=== PATIENT | female | born 1985 | race Caucasian/White ===

== ENCOUNTER → 2016-09-23 | Outpatient (CLI) | payer OTHER ==
[~2016-09-23] MED LIST: AC325T GT; ACHYD1T PO; AMOX-358 PO; AMX500CIP PO; AZIT500T PO; DCS100C PO; DOCU100C37 PO; HYDR-3816 PO; IBP600T1 PO; IBUP-1773 PO; MGX400T PO; MTH.2T PO; NITR-65 PO; NITR100C3 PO; OSLT75C PO; PREN1TAB71 PO; PRENATAL VITAMINS; ROBITUSSIN; SIME80TA16 PO
--- OUTSIDE RECORDS SUMMARY | 2016-09-23 15:06 | XMS REPORT ---
Author Author RONA ARNDT [facility] eClinicalWorks Address Unknown Phone Unavailable Care Team Providers Care Emblem Cutter Name Role Phone RONA ARNDT CP Unavailable Allergies, Adverse Reactions, Alerts Substance Reaction Event Type Stadol combative Drug Allergy Cephalexin Info Not Available Drug Allergy Problems Problem Type Condition ICD-9 Code Onset Dates Condition Status Problem Cellulitis and abscess of face 682.0 Active Problem Acute pharyngitis 462 Active Problem Cough 786.2 Active Assessment Headache 784.0 Active Problem Routine gynecological examination V72.31 Active Problem Lump or mass in breast 611.72 Active Problem Encounter for removal of intrauterine contraceptive device V25.12 Active Problem Pain in joint, lower leg 719.46 Active Problem Pain in joint, shoulder region 719.41 Active Problem Diffuse cystic mastopathy 610.1 Active Problem Unspecified synovitis and tenosynovitis 727.00 Active Medications Medication Code System Code Instructions Start Date End Date Status Dosage Ibuprofen [facility] [address]-51 800 MG Orally Three times a day as needed 1 tablet Procedures Procedure Coding System Code Date TORADOL (IM) 60 MG/2ML (UP TO 15 MG) CPT-4 J1885 May 07, 2015 THER/PROPH/DIAG INJ, SC/IM CPT-4 94342 May 07, 2015 Office Visit, Est Pt., Level 3 CPT-4 77892 May 07, 2015 Vital Signs Date/Time: May 07, 2015 Temperature 97.9 F Weight 184.4 lbs Height 66 in BMI 29.76 Index Blood Pressure Diastolic 62 mmHg Blood Pressure Systolic 108 mmHg Cardiac Monitoring Heart Rate 84 bpm Results No Known Results Summary Purpose eClinicalWorks Submission
--- NOTE | 2016-09-23 21:01 | Diagnostic Imaging Report ---
Bilateral breast ultrasound. Technique: All four quadrants and the retroareolar region were examined on this study. INDICATION: Bilateral breast lumps, on the left side at 1:00 and in the upper outer aspect of the right side extending to the axillary region. FINDINGS: Areas of lumpiness and tenderness in the upper outer aspect of the left breast extending to the axilla are scanned with no underlying abnormality seen. In the left side the 4 quadrants and retroareolar region were also scanned without underlying abnormality. IMPRESSION: Negative study. Clinical followup and management of patient's symptoms recommended. ACR BI-RADS Category 1: Negative. Dictated by: Dictated on workstation # [id number]
== END ==
LOC: RAD 15:02
PROVIDERS: ATTEND Nurse Practitioner Family
DX: N63 Unspecified lump in breast (principal)

== ENCOUNTER → 2016-10-12 | Outpatient (CLI) | payer MEDICAID ==
--- NOTE | 2016-10-12 18:33 | Diagnostic Imaging Report ---
EXAMINATION: Pelvic ultrasound. INDICATION: Heavy bleeding. FINDINGS: The previous pelvic ultrasound exam performed on 12/14/2013 was conducted when the patient was post . There did appear to be blood products within the endometrium of the uterus, but there was no sign of retained products of conception. On this study, the endometrium is only slightly thickened measuring 7 mm (normal 5 mm or less). This finding is nonspecific. Correlation with the patient's menstrual cycle will be recommended. There may be a trace amount of fluid within the endometrium, but there is no sign of a gestational sac. The uterus is prominent measuring 9.2 x 6 x 4.9 cm. There is no focal mass involving the uterus to suggest a fibroid. Both ovaries are identified. Each ovary contains a few subcentimeter follicles. There is no solid pelvic mass or free fluid collection noted. IMPRESSION: 1. The endometrium of the uterus is only slightly thickened. This finding is non specific. Correlation with the patient's menstrual cycle will be recommended. 2. The uterus itself is prominent, but there is no focal mass to suggest a fibroid. 3. There is no solid pelvic mass or free fluid collection to indicate an acute abnormality. Dictated by: Dictated on workstation # [id number]
== END ==
LOC: RAD 14:14
PROVIDERS: ATTEND Family Medicine
DX: N93.9 Abnormal uterine and vaginal bleeding, unspecified (principal)
CPT/HCPCS: 76830

== ENCOUNTER 2016-12-28 10:46 | Outpatient (CLI) | payer MEDICAID ==
[~2016-12-28] VITALS: Ht 167.6 cm; Wt 87.7 kg
[~2016-12-28 10:46] MED LIST changes: -AMOX-358 PO; -AZIT500T PO; -DOCU100C37 PO; -HYDR-3816 PO; -IBUP-1773 PO; -SIME80TA16 PO
[2016-12-28 11:14] VITALS: BP 112/69
[2016-12-28 11:39] LABS: BASOPHILS % (AUTO) 0 % (0-10); EOSINOPHILS # (AUTO) 0.4 10^3/uL (0.0-0.3); EOSINOPHILS % (AUTO) 4 % (0-10); LYMPHOCYTES # (AUTO) 2.8 X 10^3 (1.0-4.0); LYMPHOCYTES % (AUTO) 28 % (12-44); MEAN CORPUSCULAR HEMOGLOBIN 25 PG (25-34); MEAN CORPUSCULAR HGB CONC 32 G/DL (32-36); MEAN CORPUSCULAR VOLUME 80 FL (80-99); MEAN PLATELET VOLUME 12.3 FL (7.4-10.4); MONOCYTES # (AUTO) 0.8 X 10^3 (0.0-1.0); MONOCYTES % (AUTO) 8 % (0-12); NEUTROPHILS # (AUTO) 5.8 X 10^3 (1.8-7.8); NEUTROPHILS % (AUTO) 60 % (42-75); PLATELET COUNT 201 10^3/uL (130-400); RED BLOOD COUNT 4.63 10^6/uL (4.35-5.85); RED CELL DISTRIBUTION WIDTH 14.7 % (10.0-14.5); WHITE BLOOD COUNT 9.8 10^3/uL (4.3-11.0)
[2017-01-07] MEDS ORDERED: IBUP-1773 PO (11:31)
[2017-01-07] MEDS ORDERED: HYDR-3816 PO (11:31)
[2017-01-07] MEDS ORDERED: SIME80TA16 PO (11:31)
[2017-01-07] MEDS ORDERED: DOCU100C37 PO (11:31)
== END 2016-12-28 13:58 | disposition home or self-care (01) ==
LOC: PREOP 10:46
PROVIDERS: ATTEND Obstetrics & Gynecology
DX: Z01.812 Encounter for preprocedural laboratory examination (principal); Z11.2 Encounter for screening for other bacterial diseases; N93.9 Abnormal uterine and vaginal bleeding, unspecified
CPT/HCPCS: 36415; 85025; 86850; 86900; 86901; 87081

== ENCOUNTER 2017-01-07 08:13 | Day surgery (SDC) | payer MEDICAID ==
[~2017-01-07] VITALS: Ht 167.6 cm; Wt 87.7 kg
[2017-01-07] MEDS ORDERED: ceFAZolin 2 GM/50 ML NS 50 ML IV ONE (08:20)
[2017-01-07] MEDS ORDERED: metroNIDAZOLE 500MG/100ML IVPB 100 ML ONE (08:21)
[2017-01-07 08:30] VITALS: BP 100/70
[2017-01-07] MEDS ORDERED: LACTATED RINGERS 1,000 ML IV PRN (08:43)
[2017-01-07] MEDS ORDERED: MIDAZOLAM 2 MG/2 ML (VERSED) VIAL IV ONE (08:45)
[2017-01-07] MEDS ORDERED: metroNIDAZOLE 500 MG/100 ML IVPB (PRE-MIX) IV ONE (08:45)
[2017-01-07] MEDS ORDERED: ceFAZolin 2 GM/NS 50 ML IV ONE (08:45)
--- NOTE | 2017-01-07 09:08 | Progress Note-Pre Operative ---
Pre-Operative Progress Note H&P Reviewed The H&P was reviewed, patient examined and no changes noted. Date H&P Reviewed: Jan 07, 2017 Time H&P Reviewed: 09:00 Pre-Operative Diagnosis: MANDO HERNDON DO Jan 07, 2017 9:08 am
[2017-01-07] MEDS ORDERED: proPOfol 200 MG/20 ML (DIPRIVAN) VIAL IV ONE (09:16)
[2017-01-07] MEDS ORDERED: ROCURONIUM 50 MG/5 ML (ZEMURON) VIAL IV ONE (09:16)
[2017-01-07] MEDS ORDERED: ONDANSETRON 4 MG/2 ML (SDV) Z0FRAN ONE (09:16)
[2017-01-07] MEDS ORDERED: LIDOCAINE PF 2% 10 ML (XYLOCAINE) AMP ONE (09:16)
[2017-01-07] MEDS ORDERED: DEXAMETHASONE PF 10 MG/ML (DECADRON) VIAL ONE (09:16)
[2017-01-07] MEDS ORDERED: fentaNYL INJECTION 250 MCG/5 ML AMP ONE (09:16)
[2017-01-07] MEDS ORDERED: MIDAZOLAM 2 MG/2 ML (VERSED) VIAL ONE (09:17)
[2017-01-07] MEDS ORDERED: BUPIVACAINE 0.25% 30 ML (SENSORCAINE) VIAL ONE (10:17)
[2017-01-07] MEDS ORDERED: ONDANSETRON 4 MG/2 ML (SDV) Z0FRAN IV PRN (10:30)
[2017-01-07] MEDS ORDERED: CHLORASEPTIC LOZENGE MM PRN (10:30)
[2017-01-07] MEDS ORDERED: ANTACID SUSP 30 ML UDC (MYLANTA) PO PRN (10:30)
[2017-01-07] MEDS ORDERED: DOCUSATE SODIUM 100 MG (COLACE) CAP PO PRN (10:30)
[2017-01-07] MEDS ORDERED: SIMETHICONE 80 MG (MYLICON) CHEW PO PRN (10:30)
[2017-01-07] MEDS ORDERED: HYDROcodone/APAP 7.5 MG/325 MG (LORTAB, LORCET PLUS) TABLET PO PRN (10:30)
[2017-01-07] MEDS ORDERED: ZOLPIDEM 5 MG (AMBIEN) TAB PO PRN (10:30)
[2017-01-07] MEDS: LACTATED RINGERS 1,000 ML IV SCH ×3 (10:30→20:12)
[2017-01-07] MEDS ORDERED: NEOSTIGMINE (BLOXIVERZ ) 1 MG/1ML 10 ML VIAL ONE (11:13)
[2017-01-07] MEDS ORDERED: GLYCOPYRROLATE 0.2 MG/ML (ROBINUL) 2 ML VIAL ONE (11:13)
--- NOTE | 2017-01-07 11:30 | Discharge Inst-Women's Service ---
Discharge Inst-Women's Serv Depart Medication/Instructions New, Converted or Re-Newed RX: RX on Chart Consults/Follow Up Additional Follow Up: Yes Orders/Referrals Dr. Sher in 7-10 days and in 8 weeks Activity Activity: Activity as Tolerated Driving Instructions: No Driving for 1 Week NO SMOKING: NO SMOKING Nothing Inside Vagina: No Douching, No [place], No Tampons Diet Discharge Diet: No Restrictions Symptoms to Report to : Bleeding Excessive, Pain Increased, Fever Over 101 Degrees F, Vaginal Bleeding Increase, Questions/Concerns For Any Problems or Questions: Contact Your Physician Skin/Wound Care Infection Signs and Symptoms: Increased Redness, Foul Odor of Wound, Increased Drainage, Skin Itchy or Has a Rash, Increased Swelling, Temperature Above 101 F Operative Area Clean and Dry: Keep Incision Clean/Dry Stitches/[place]/Dermabond: Dermabond, Care of Stitches Bathing Instructions: MANDO Otoole DO Jan 07, 2017 11:30 am
[2017-01-07] MEDS ORDERED: IBUP-1773 PO (11:31)
[2017-01-07] MEDS ORDERED: SIME80TA16 PO (11:31)
[2017-01-07] MEDS ORDERED: HYDR-3816 PO (11:31)
[2017-01-07] MEDS ORDERED: DOCU100C37 PO (11:31)
[2017-01-07] MEDS ORDERED: SEVOFLURANE (ULTANE) 15 ML INHAL SOLN ONE (11:37)
[2017-01-07] MEDS ORDERED: morphine INJ 10 MG/ML 1ML (SYR OR VIAL) ONE (11:45)
[2017-01-07] MEDS: KETOROLAC 30 MG/ML VIAL IV PRN ×2 (12:00→19:35)
[2017-01-07] MEDS ORDERED: MEPERIDINE (DEMEROL) INJ 50 MG/ML IVP PRN (12:00)
[2017-01-07] MEDS ORDERED: ONDANSETRON 4 MG/2 ML (SDV) Z0FRAN IVP PRN (12:00)
[2017-01-07] MEDS: morphine INJ 10 MG/ML 1ML (SYR OR VIAL) IVP PRN ×2 (12:05→12:10)
[2017-01-07] MEDS ORDERED: BUPIVACAINE 0.25% 30 ML (SENSORCAINE) VIAL INJ ONE (12:15)
[2017-01-07 12:57] VITALS: BP 109/70
--- NOTE | 2017-01-07 13:06 | OPERATIVE REPORT ---
DATE OF SERVICE: PREOPERATIVE DIAGNOSIS: A 31-year-old female with abnormal uterine bleeding, dysmenorrhea. POSTOPERATIVE DIAGNOSIS: A 31-year-old female with abnormal uterine bleeding, dysmenorrhea. PROCEDURE: Robotic-assisted total laparoscopic hysterectomy with bilateral salpingectomy. SURGEON: Dr. Kenrick Hoffman. HOME [employer]POT REP: Urszula Wells APRN ANESTHESIA: General endotracheal. ESTIMATED BLOOD LOSS: 50 mL. URINE OUTPUT: 150 mL, clear at end of procedure. FLUIDS: Two liters of lactated Ringer's solution. FINDINGS: Hyperemic-appearing uterus with evidence of prior tubal ligation, grossly normal-appearing bilateral ovaries, vesicouterine peritoneum scarring from previous section; otherwise, grossly normal abdominal and pelvic anatomy. SPECIMEN SPENT: Uterus, bilateral fallopian tubes. INDICATIONS FOR PROCEDURE: This is a 31-year-old female with consultation in my office for ongoing issues with chronic dysmenorrhea and abnormal uterine bleeding which was irregular and very heavy. The patient states this was debilitating at times. She had tried Depo-Provera, oral contraceptive pills, had even been counseled about endometrial ablation, however, the patient wanted more definitive measures as she has no plans of childbearing in the future. I do attempt to try the patient on a less conservative measure; however, she does not feel that these are good options for her. I discussed the risk of hysterectomy including bleeding, infection, damage to any surrounding structures including but not limited to bowel, bladder, ureter, kidneys, risk for postoperative hematoma, thromboembolic events, risk from anesthesia; risk for need for subsequent surgeries if any damage should occur. After all of this was discussed with patient, she was still agreeable to proceed with the more definitive measure which would be robotic-assisted hysterectomy. The consent was reviewed and obtained in the preoperative area with her family present. The patient was then taken to the operating room. OPERATIVE REPORT IN DETAIL Once in the operating room, and general anesthesia was found to be adequate, she was placed in the dorsal lithotomy position, prepped and draped in a normal sterile fashion. She was first examined under anesthesia after a timeout is performed. A De La Paz catheter is placed. The uterus is not enlarged, fully immobile; there is no adnexal fullness or masses appreciated on bimanual examination. A weighted speculum was inserted into the patient's vagina. A right angle retractor was used to visualize the cervix which was grasped at the 12 o'clock position using a long Allis clamp. A 0 Vicryl suture was placed at the anterior lip of the cervix and this was used as my retraction point and the Allis clamp is then removed. I then sounded the uterine cavity and when this was found to be 8 cm I then selected a ELVIA uterine manipulator with an 8 cm tip and a 3-1/2 colpotomy ring and advanced it into the uterus, deploying the balloon and advancing the colpotomy ring around the vaginal fornix. Once this was in place, excellent uterine manipulation is noted on bimanual examination. I then performed a change of gloves and turned my attention to the abdomen where I supraumbilically infiltrated this area using 0.25% Marcaine. I made an 8 mm incision and directed the Veress needle through this incision to ensure proper placement as confirmed using the saline drop test. An opening pressure of 4 mmHg is noted. I proceeded to a maximum pressure of 15 mmHg, at which point I removed the Veress needle and introduced an 8 mm blunt da Chi camera trocar. Once this was in place I am able to confirm intraperitoneal placement. I had the patient placed in steel Trendelenburg and I individualized all of the findings and the pelvic anatomy described above. I placed lateral trocars approximately 8 cm lateral to my supraumbilical trocar, they are both 8 mm incisions, which are infiltrated with 0.25% Marcaine, incisions are made with a knife and the trocars were placed under direct visualization of the laparoscope. Once both of these trocars were in place I am able to bring in the da Chi robot and dock it in the appropriate fashion. I placed monopolar jax in the right hand and the da Chi vessel sealer in the left hand. I then take my place at the operative console and perform the final dissection bilaterally. Starting at the uteroovarian ligament, I bipolar cauterize this and transect it using the vessel sealer. I then create a window in the mesosalpinx using the monopolar jax and take this distally, amputating the fallopian tube away from its surrounding blood supply using the vessel sealer. I then grasped the round ligament, bipolar cauterize this and transect it using the vessel sealer. I then take the entire broad ligament using the vessel sealer, bipolar cauterize and transect it all the way down to the lower uterine segment at which point I separate the anterior posterior leaflets of the broad ligament. The anterior leaflet was taken down at the anterior vaginal fornix; the posterior leaflet was taken down at the posterior vaginal fornix. This allows me to skeletonize out the uterine vessels bilaterally. I bipolar cauterize these and transect them using the vessel sealer. I then perform a colpotomy at the 12 o'clock position and take this colpotomy circumferentially using the monopolar jax, amputating the cervix from the vaginal fornix. The entire specimen is then removed through the vagina. I then close the vaginal cuff using 2-0 Vicryl suture in a [id number] fashion, incorporating them into the uterosacral ligaments. I do this in the lateral vaginal apices, leaving the defect open in the middle, which I close later using a 2-0 V-Loc. After the remainder of the incision of the vagina is closed, there is no active bleeding noted from any of the resection planes. I undocked the da Chi robot and proceeded with the remainder of the case laparoscopically. I copiously irrigated the pelvis using normal saline. There was no active bleeding from any of my dissection planes. I placed FloSeal hemostatic agent over my planes of dissection and have the patient taken out of steep Trendelenburg and will remove the lateral trocars. There is no active bleeding noted from those. The supraumbilical trocar was left in place to release insufflation and to introduce 10 mL of 0.25% Marcaine for postoperative pain management. This trocar is then removed as well. The skin is then closed using 4-0 Monocryl in interrupted subcuticular stitches, Dermabond applied to the incision, a Band-Aid to be placed over these. The patient tolerated the procedure well, was taken to the recovery area in stable condition. Lap and sponge count was correct at the end of the procedure. Instrument count is correct as well. Two grams of Ancef and 500 mg of Flagyl given preoperatively for infection prophylaxis. Job ID: [id number] DocumentID: [id number] Dictated Date: 01/07/2017 11:27:48 Director Date: 01/07/2017 13:06:08 Dictated By: KENRICK HOFFMAN DO
[2017-01-07 16:00] VITALS: BP 102/66
[2017-01-07 20:00] VITALS: BP 96/63
[2017-01-07 21:50] VITALS: BP 102/67
[2017-01-08] MEDS ORDERED: IBUPROFEN 600 MG (MOTRIN) TAB PO PRN (03:00)
== END 2017-01-07 21:50 | disposition home or self-care (01) ==
LOC: SDC 08:13 → WS 12:44 → SDC 21:50
PROVIDERS: ATTEND Obstetrics & Gynecology
DX: N94.6 Dysmenorrhea, unspecified (principal); N83.8 Other noninflammatory disorders of ovary, fallopian tube and broad ligament
CPT/HCPCS: 84703; 88307; 94664; 96361; 96375

== ENCOUNTER 2017-01-14 18:12 | Emergency (ER) | payer MEDICAID ==
[~2017-01-14] VITALS: Ht 167.6 cm; Wt 87.7 kg
[~2017-01-14 18:12] MED LIST changes: +DOCU100C37 PO; +HYDR-3816 PO; +IBUP-1773 PO; +SIME80TA16 PO
[2017-01-14] MEDS ORDERED: LACTATED RINGERS 1,000 ML IV ONE ×2 (18:47→20:27)
[2017-01-14] MEDS ORDERED: ACETAMINOPHEN 500 MG TAB (TYLENOL) ONE (18:59)
[2017-01-14] MEDS ORDERED: IBUPROFEN 800 MG (MOTRIN) TAB PO ONE (19:00)
[2017-01-14 19:06] LABS: BASOPHILS % (AUTO) 0 % (0-10); EOSINOPHILS # (AUTO) 0.2 10^3/uL (0.0-0.3); EOSINOPHILS % (AUTO) 1 % (0-10); LYMPHOCYTES % (AUTO) 8 % (12-44); MEAN CORPUSCULAR HEMOGLOBIN 25 PG (25-34); MEAN CORPUSCULAR HGB CONC 31 G/DL (32-36); MEAN CORPUSCULAR VOLUME 79 FL (80-99); MEAN PLATELET VOLUME 12.5 FL (7.4-10.4); MONOCYTES # (AUTO) 1.2 X 10^3 (0.0-1.0); MONOCYTES % (AUTO) 10 % (0-12); NEUTROPHILS # (AUTO) 9.5 X 10^3 (1.8-7.8); NEUTROPHILS % (AUTO) 80 % (42-75); PLATELET COUNT 185 10^3/uL (130-400); RED BLOOD COUNT 4.73 10^6/uL (4.35-5.85); WHITE BLOOD COUNT 11.8 10^3/uL (4.3-11.0)
--- NOTE | 2017-01-14 19:28 | Diagnostic Imaging Report ---
INDICATION: Hysterectomy one week ago. Fever and chills. COMPARISON: 12/10/2013. FINDINGS: Examination of the chest in the PA and lateral projections fails to reveal evidence of active parenchymal pathology or pleural effusion. The cardiac silhouette is normal. IMPRESSION: Negative chest. Dictated by: Dictated on workstation # [id number]
--- NOTE | 2017-01-14 19:48 | ED General ---
General Chief Complaint: Fever-Adult/Adol Stated Complaint: FEVER, CHILLS Nursing Triage Note: PT REPORTS FEVER/CHILLS/MALAISE SINCE YESTERDAY. SHE STATES SHE WAS SEEN BY HER PCP YESTERDAY FOR SORE THROAT AND WAS PRESCRIBED AMOXICILLIN. SHE ALSO REPORTS SHE IS 1 WEEK POST HYSTERECTOMY. PT DENIES N/V OR BLEEDING. Nursing Sepsis Screen: Possible Sepsis Risk Source of Information: Patient History of Present Illness Time Seen by Provider: 18:45 Initial Comments PT ARRIVES VIA POV C/O FEVER OF 102 SINCE YESTERDAY AM ON WAKING ALSO HAS HAD A SORE THROAT SINCE YESTERDAY ON WAKING C/O BODY ACHES NO COUGH OR URI SYMPTOMS NO ABDOMINAL PAIN OR NAUSEA/VOMITING/DIARRHEA NO URINARY SYMPTOMS--HAS VOIDED 2-3 TIMES TODAY--LAST TIME WAS SOME TIME BEFORE 1630 TODAY HAS HAD MINIMAL INTAKE TODAY--PART OF A BURRITO, AND PART OF A POWERADE DRINK IS ONLY INTAKE TOOK IBUPROFEN 600 MG AT 1500 TODAY PT WENT TO URGENT CARE IN [facility] YESTERDAY, BUT WAIT WAS TOO LONG, SO WAS SEEN IN OFFICE BY DR. LIN AND WAS DX WITH TONSILLITIS AND GIVEN RX FOR AMOXIL PT HAD ROBOTIC LAPAROSCOPIC HYSTERECTOMY/OVARIES INTACT [address] HOFFMAN NO PROBLEMS FROM SURGERY--NO BLEEDING, NO PAIN WAS FEELING FINE UNTIL YESTERDAY AM HAS POST OP CHECK NEXT WEDNESDAY WITH DR. HOFFMAN NO PCP ANYWHERE [facility]: DR. HOFFMAN Allergies and Home Medications Allergies Coded Allergies: butorphanol (Verified Allergy, Intermediate, ANXIETY, 12/28/16) cephalexin (Unverified Allergy, Mild, 12/28/16) Home Medications Amoxicillin/Potassium Clav 1 Each Tablet, 1 EACH PO BID, #20 Prescribed by: JACQUE GEORGES on 01/14/176 Azithromycin 500 Mg Tablet, 500 MG PO DAILY, #5 FOR INFECTION Prescribed by: JACQUE GEORGES on 01/14/172105 Docusate Sodium 100 Mg Capsule, 100 MG PO BID PRN for CONSTIPATION-1ST LINE, #40 Prescribed by: MANDO HOFFMAN on 01/07/17 1131 Hydrocodone/Acetaminophen 1 Each Tablet, 1-2 EA PO Q6H PRN for Pain-See Instructions, #50 Prescribed by: MANDO HOFFMAN on 01/07/17 1131 Ibuprofen 600 Mg Tablet, 600 MG PO Q6H PRN for PAIN-MODERATE, #80 Prescribed by: MANDO HOFFMAN on 01/07/17 1131 Simethicone 80 Mg Tab.chew, 40 MG PO TID PRN for INDIGESTION, #40 Prescribed by: MANDO HOFFMAN on 01/07/17 1131 Constitutional: see HPI, chills, fever, malaise, weakness EENTM: other (RIGHT EYE REDNESS, IRRITATION, DRAINAGE AND HAS BEEN MATTED SHUT THE LAST 2 MORNINGS--SON WITH PINK EYE IN THE LAST WEEK.), see HPI, throat pain , throat swelling, No ear pain, No nose congestion Respiratory: no symptoms reported, No cough, No short of breath Cardiovascular: no symptoms reported, No chest pain Gastrointestinal: see HPI, No abdominal pain, No constipation, No diarrhea, loss of appetite, No nausea, No vomiting Genitourinary: no symptoms reported Musculoskeletal: see HPI (BODY ACHES) Skin: no symptoms reported, No rash Psychiatric/Neurological: No Symptoms Reported, Denies Headache Hematologic/Lymphatic: No Symptoms Reported Immunological/Allergic: no symptoms reported Past Fltodlj-Vuilhr-Vuxmwu Hx Patient Social History Alcohol Use: Denies Use Recreational Drug Use: No Smoking Status: Current Everyday Smoker Type Used: Cigarettes 2nd Hand Smoke Exposure: No Recent Foreign Travel: No Contact w/Someone Who Travel: No Recent Infectious Disease Expo: No Recent Hopitalizations: No Immunizations Up To Date Tetanus Booster (TDap): Unknown Seasonal Allergies Seasonal Allergies: No Surgeries HX Surgeries: Yes ( X 2; HYST/OVARIES INTACT) Surgeries: Section, Hysterectomy Respiratory Hx Respiratory Disorders: No Cardiovascular Hx Cardiac Disorders: No Neurological Hx Neurological Disorders: No 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 System Hx : 3 Hx Para: 3 Hx 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 Disorders: Yes (AUB, ENLARGED UTERUS; PLACENTAL ABRUPTION WITH 2ND ; POST HEMORRHAGE WITH 3RD ) Sexually Transmitted Disease: No HIV/AIDS: No Female 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 Disorders: Menstrual Problems [employer] History: Hysterectomy Genitourinary Hx Genitourinary Disorders: No Gastrointestinal Hx Gastrointestinal Disorders: No Musculoskeletal Hx Musculoskeletal Disorders: No Endocrine Hx Endocrine Disorders: No HEENT HX ENT Disorders: Yes (GLASSES) Loss of Vision: Bilateral Hearing Impairment: Denies Cancer Hx Cancer: No Psychosocial Hx Psychiatric Problems: No Integumentary HX Skin/Integumentary Disorder: No Blood Transfusions Hx Blood Disorders: Yes (ANEMIA) Adverse Reaction to a Blood Tr: No (HAS HAD BLOOD WITH NO REACTION) Family Medical History Family Medial History: Cancer 03 FATHER (CANCER OF ANTERIOR AND MEDIAL SURFACE OF THE PHARYNGOEPIGLOTTIC FOLD) Family history: Hypertension 03 MOTHER Physical Exam Vital Signs Vital Sign - Last 12Hours 01/14/17 18:45 Temp 103.8 Pulse 120 Resp 20 B/P (MAP) 120/74 Pulse Ox 98 O2 Delivery Room Air Capillary Refill : Less Than 3 Seconds General Appearance: No Apparent Distress, Other (LOOKS MILDLY ILL. VERY WARM, FACE AND BODY FLUSHED) Eyes: Right Eye Other (CONJUNCTIVAL INFLAMMATION, MILD TEARING, NO PURULENT DRAINAGE AT THIS TIME) HEENT: PERRL/EOMI, Pharyngeal Erythema, No Photophobia, Tonsillar Exudate, Tonsillar Enlargement (+2/4), Other (TM'S SCLEROTIC; NO EVIDENCE OF PERITONSILLAR ABSCESS, NO UVULAR SHIFT, NO MUFFLED VOICE, ABLE TO HANDLE SECRETIONS) Neck: Full Range of Motion, Non Tender, Supple, Lymphadenopathy (L) (ANTERIOR) , Lymphadenopathy (R) (ANTERIOR), No Tender Lateral, No Tender Midline Respiratory: Normal Breath Sounds, No Accessory Muscle Use, No Respiratory Distress Cardiovascular: No Edema, No JVD, No Murmur, Normal Peripheral Pulses, Tachycardia Gastrointestinal: Normal Bowel Sounds, No Organomegaly, No Pulsatile Mass, Soft , Tenderness (SLIGHT TENDERNESS OVER INCISIONS, BUT ALL ARE INTACT AND HEALING WELL WITHOUT SIGNS OF INFECTION. ) Back: Normal Inspection, No Vertebral Tenderness, CVA Tenderness (L), CVA Tenderness (R) Extremity: Normal Capillary Refill, Normal Inspection, Normal Range of Motion, Non Tender, No Calf Tenderness, No Pedal Edema 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: Alert, Oriented x3, No Motor/Sensory Deficits, planning lead II- XII Norm as Tested, Other (MILDLY LETHARGIC) Skin: Warm/Dry, No Rash, Other (VERY FLUSHED AND WARM. ) Focused Exam Lactic Acid Level Progress/Results/Core Measures Results/Orders Lab Results Laboratory Tests Test 01/14/17 18:55 01/14/17 19:10 01/14/17 21:00 Range/Units White Blood Count 11.8 H 4.3-11.0 10^3/uL Red Blood Count 4.73 4.35-5.85 10^6/uL Hemoglobin 11.7 11.5-16.0 G/DL Hematocrit 37 35-52 % Mean Corpuscular Volume 79 L 80-99 FL Mean Corpuscular Hemoglobin 25 25-34 PG Mean Corpuscular Hemoglobin Concent 31 L 32-36 G/DL Red Cell Distribution Width 15.0 H 10.0-14.5 % Platelet Count 185 130-400 10^3/uL Mean Platelet Volume 12.5 H 7.4-10.4 FL Neutrophils (%) (Auto) 80 H 42-75 % Lymphocytes (%) (Auto) 8 L 12-44 % Monocytes (%) (Auto) 10 0-12 % Eosinophils (%) (Auto) 1 0-10 % Basophils (%) (Auto) 0 0-10 % Neutrophils # (Auto) 9.5 H 1.8-7.8 X 10^3 Lymphocytes # (Auto) 1.0 1.0-4.0 X 10^3 Monocytes # (Auto) 1.2 H 0.0-1.0 X 10^3 Eosinophils # (Auto) 0.2 0.0-0.3 10^3/uL Basophils # (Auto) 0.0 0.0-0.1 10^3/uL Sodium Level 138 135-145 MMOL/L Potassium Level 3.8 3.6-5.0 MMOL/L Chloride Level 108 H 98-107 MMOL/L Carbon Dioxide Level 20 L 21-32 MMOL/L Anion Gap 10 5-14 MMOL/L Blood Urea Nitrogen 10 7-18 MG/DL Creatinine 0.87 0.60-1.30 MG/DL Estimat Glomerular Filtration Rate > 60 BUN/Creatinine Ratio 11 Glucose Level 103 70-105 MG/DL Lactic Acid Level 1.01 0.50-2.00 MMOL/L Calcium Level 8.5 8.5-10.1 MG/DL Total Bilirubin 0.3 0.1-1.0 MG/DL Aspartate Amino Transf (AST/SGOT) 11 5-34 U/L Alanine Aminotransferase (ALT/SGPT) 10 0-55 U/L Alkaline Phosphatase 73 40-136 U/L Total Protein 7.1 6.4-8.2 G/DL Albumin 4.1 3.2-4.5 G/DL Monoscreen NEGATIVE NEGATIVE Group A Streptococcus Screen NEGATIVE NEGATIVE Urine Color YELLOW Urine Clarity CLEAR Urine pH 7 5-9 Urine Specific [place] 1.015 L 1.016-1.022 Urine Protein NEGATIVE NEGATIVE Urine Glucose (UA) NEGATIVE NEGATIVE Urine Ketones NEGATIVE NEGATIVE Urine Nitrite NEGATIVE NEGATIVE Urine Bilirubin NEGATIVE NEGATIVE Urine Urobilinogen NORMAL NORMAL MG/DL Urine Leukocyte Esterase 1+ H NEGATIVE Urine RBC (Auto) NEGATIVE NEGATIVE Urine RBC NONE /HPF Urine WBC 2-5 /HPF Urine Squamous Epithelial Cells 25-50 H /HPF Urine Crystals NONE /LPF Urine Bacteria FEW H /HPF Urine Casts NONE /LPF Urine Mucus NEGATIVE /LPF Urine Culture Indicated NO Micro Results Microbiology 01/14/17 Influenza Types A,B Antigen (SINA) - Final, Complete My Orders Orders - JACQUE GEORGES DO Cbc With Automated Diff (01/14/17 18:47) Comprehensive Metabolic Panel (01/14/17 18:47) Lactic Acid Analyzer (01/14/17 18:47) Monotest (01/14/17 18:47) Rapid Strep A Screen (01/14/17 18:47) Ua Culture If Indicated (01/14/17 18:47) Blood Culture (01/14/17 18:47) Influenza A And B Antigens (01/14/17 18:47) Chest Pa/Lat (2 View) (01/14/17 18:47) Saline Lock/Iv-Start (01/14/17 18:47) Lactated Ringers (Lr 1000 Ml Iv Solution (01/14/17 18:47) Acetaminophen Tablet (Tylenol Tablet) (01/14/17 18:59) Ibuprofen Tablet (Motrin Tablet) (01/14/17 19:00) Piperacillin Sodium/Tazobactam (Zosyn Vi (01/14/17 20:00) Methylprednisolone Sod Succ (Solu-Medrol (01/14/17 20:00) Saline Lock/Iv-Start (01/14/17 20:27) Lactated Ringers (Lr 1000 Ml Iv Solution (01/14/17 20:27) Azithromycin Tablet (Zithromax Tablet) (01/14/17 21:15) Rx-Gentamicin Ophth Oint (Rx-Gentamicin (01/14/17 21:10) Rx-Gentamicin Ophth Oint (Rx-Gentamicin (01/14/17 21:39) Medications Given in ED Current Medications Medications Dose Ordered Sig/Alysa Route Start Time Stop Time Status Last Admin Dose Admin Acetaminophen 500 mg STK-MED ONCE .ROUTE 01/14/17 18:59 01/14/17 19:03 DC 01/14/17 19:08 1,000 MG Ibuprofen 800 mg STK-MED ONCE PO 01/14/17 19:00 01/14/17 19:04 DC 01/14/17 19:08 800 MG Lactated Ringer's 1,000 ml @ 0 mls/hr Q0M ONCE IV 01/14/17 18:47 01/14/17 18:50 DC 01/14/17 19:09 0 MLS/HR Lactated Ringer's 1,000 ml @ 0 mls/hr Q0M ONCE IV 01/14/17 20:27 01/14/17 20:28 DC 01/14/17 20:49 0 MLS/HR Methylprednisolone Sodium Succinate 125 mg ONCE ONCE IVP 01/14/17 20:00 01/14/17 20:04 DC 01/14/17 20:48 125 MG Piperacillin Sod/ Tazobactam Sod 4.5 gm/Sodium Chloride 100 ml @ 200 mls/hr ONCE ONCE IV 01/14/17 20:00 01/14/17 20:29 DC 01/14/17 20:49 200 MLS/HR Vital Signs/I&O Vital Sign - Last 12Hours 01/14/17 01/14/17 18:45 22:04 Temp 103.8 98.9 Pulse 120 67 Resp 20 16 B/P (MAP) 120/74 Pulse Ox 98 99 O2 Delivery Room Air Intake and Output 01/15/17 00:00 Intake Total 2100 ml Balance 2100 ml Blood Pressure Mean: 89 Progress Note : Progress Note PT LOOKS AND FEELS MUCH BETTER AT DISMISSAL TEMP DOWN TO 99, HEART RATE DOWN BODY ACHES MUCH IMPROVED Diagnostic Imaging Comments CXR--NO ACUTE PROCESS, PER RADIOLOGIST REPORT @ 1948 Reviewed: Reviewed by Me Departure Impression Impression: Primary Impression: Exudative pharyngitis Additional Impression: Conjunctivitis, right eye Disposition: 01 HOME, SELF-CARE Condition: Stable Departure-Patient Inst. Referrals: NO,LOCAL PHYSICIAN (PCP) Primary Care Physician Patient Instructions: Conjunctivitis (Pinkeye) (DC), Sore Throat, Adult (DC) Add. Discharge Instructions: LOTS OF CLEAR LIQUIDS--NO COFFEE, POP OR TEA--DRINK ENOUGH SO YOU ARE URINATING EVERY 2 HOURS WHILE AWAKE FREQUENT SALT WATER GARGLES TYLENOL 1 GRAM/ MOTRIN 800 MG 4 TIMES A DAY FOR PAIN OR FEVER FOLLOW UP WITH DR. HOFFMAN ON WEDNESDAY SCHEDULED STOP AMOXIL USE GENTAMICIN OPHTHALMIC OINTMENT TO AFFECTED EYE EVERY 4 HOURS X 5 DAYS RETURN TO ER IF WORSE All discharge instructions reviewed with patient and/or family. Voiced understanding. Scripts Azithromycin (Zithromax) 500 Mg Tablet 500 MG PO DAILY, #5 TAB FOR INFECTION Prov: JACQUE GEORGES DO 01/14/17 Amoxicillin/Potassium Clav (Augmentin 875-125 Tablet) 1 Each Tablet 1 EACH PO BID for INFECTION, #20 TAB Prov: JACQUE GEORGES DO 01/14/17 JACQUE GEORGES DO Jan 14, 2017 19:48
[2017-01-14] MEDS ORDERED: PIPERACILLIN SODIUM/TAZOBACTAM 4.5 GM in NS (IVPB) 100 ML IV ONE (20:00)
[2017-01-14] MEDS ORDERED: methylPREDNISolone 125 MG (Solu-MEDROL) VIAL IVP ONE (20:00)
[2017-01-14 20:11] LABS: ALANINE AMINOTRANSFERASE 10 U/L (0-55); ALBUMIN 4.1 G/DL (3.2-4.5); ANION GAP 10 MMOL/L (5-14); ASPARTATE AMINO TRANSFERASE 11 U/L (5-34); BILIRUBIN,TOTAL 0.3 MG/DL (0.1-1.0); BLOOD UREA NITROGEN 10 MG/DL (7-18); BUN/CREATININE RATIO 11; CALCIUM 8.5 MG/DL (8.5-10.1); CARBON DIOXIDE 20 MMOL/L (21-32); CHLORIDE 108 MMOL/L (98-107); CREATININE SERUM 0.87 MG/DL (0.60-1.30); GFR ESTIMATED > 60; GLUCOSE 103 MG/DL (70-105); POTASSIUM 3.8 MMOL/L (3.6-5.0); SODIUM 138 MMOL/L (135-145); TOTAL PROTEIN 7.1 G/DL (6.4-8.2)
[2017-01-14] MEDS ORDERED: AMOX-358 PO (21:06)
[2017-01-14] MEDS ORDERED: AZIT500T PO (21:06)
[2017-01-14 21:10] LABS: BILIRUBIN,URINE NEGATIVE (NEGATIVE); KETONES,URINE NEGATIVE (NEGATIVE); LEUKOCYTE ESTERASE ,URINE 1+ (NEGATIVE); NITRITE,URINE NEGATIVE (NEGATIVE); PH,URINE 7 (5-9); PROTEIN,URINE NEGATIVE (NEGATIVE); UROBILINOGEN,URINE NORMAL (NORMAL)
[2017-01-14] MEDS ORDERED: RX-GENTAMICIN 0.3% OP OINT 3.5 GM TUBE OP STA (21:10)
[2017-01-14] MEDS ORDERED: AZITHROMYCIN 250 MG TAB (ZITHROMAX) PO SCH (21:15)
[2017-01-14 21:24] LABS: SQUAMOUS EPITHELIAL CELL,UR 25-50 /HPF
[2017-01-14] MEDS ORDERED: RX-GENTAMICIN 0.3% OP OINT 3.5 GM TUBE ONE (21:39)
[2017-01-14 22:04] VITALS: BP 124/80
== END 2017-01-14 22:04 | disposition home or self-care (01) ==
LOC: EDUNIT# 18:12 → ER 18:14
DX: J02.9 Acute pharyngitis, unspecified (principal); H10.31 Unspecified acute conjunctivitis, right eye; Z98.890 Other specified postprocedural states; Z90.710 Acquired absence of both cervix and uterus
CPT/HCPCS: 36415; 71020; 80053; 81000; 83605; 85025; 86308; 87040; 87430; 87804; 96361; 96365; 96375

== ENCOUNTER → 2019-01-26 | Outpatient (CLI) | payer MEDICAID ==
[~2019-01-26] MED LIST changes: +AMOX-358 PO; +AZIT500T PO; +CATHETER FLUSH 10 ML SYR IV PRN; +HYDR-34 PO; -HYDR-3816 PO
--- NOTE | 2019-01-26 19:27 | Diagnostic Imaging Report ---
INDICATION: Right upper quadrant pain and diarrhea. TECHNIQUE: Patient was administered 5.5 mCi of technetium-99m Choletec intravenously, and imaging over the abdomen was performed. After 60 minutes, patient ingested one can of Ensure, and the gallbladder ejection fraction was calculated. FINDINGS: There is homogeneous uptake of activity by the liver. Prompt excretion of activity into the common duct and gallbladder is noted. There is normal passage of activity into the small bowel. Gallbladder ejection fraction is abnormally low at 12%. Normal values are 33% or greater. IMPRESSION: 1. Patent cystic duct and common bile duct. 2. Abnormally low gallbladder ejection fraction of 12%. Dictated by: Dictated on workstation # [id number]
== END ==
LOC: CARD 11:19
PROVIDERS: ATTEND Surgery
DX: R10.11 Right upper quadrant pain (principal)
CPT/HCPCS: 78227

== ENCOUNTER 2019-02-02 05:34 | Outpatient (CLI) | payer MEDICAID ==
[~2019-02-02] VITALS: Ht 167.6 cm; Wt 87.7 kg
[~2019-02-02 05:34] MED LIST changes: -CATHETER FLUSH 10 ML SYR IV PRN
[2019-02-02] MEDS ORDERED: PANT40TA3 PO (14:55)
== END 2019-02-02 15:17 | disposition home or self-care (01) ==
LOC: PREOP 05:34
PROVIDERS: ATTEND Surgery
DX: Z01.818 Encounter for other preprocedural examination (principal)

== ENCOUNTER 2019-02-09 08:41 | Day surgery (SDC) | payer MEDICAID ==
[2019-02-09] VITALS (11 sets, daily range): BP systolic 107–146; BP diastolic 52–81
[~2019-02-09] VITALS: Ht 167.6 cm; Wt 87.7 kg
[~2019-02-09 08:41] MED LIST changes: +PANT40TA3 PO
--- OUTSIDE RECORDS SUMMARY | 2019-02-09 08:44 | XMS REPORT ---
Author Author Migration, Doctor Organization [facility] Address Unknown Phone Unavailable Care Team Providers Care Driver Service Technician Name Role Phone Migration, Doctor Unavailable Unavailable PROBLEMS Type Condition ICD9-CM Code IEX54-[place] Code Onset Dates Condition Status SNOMED Code Problem Abnormal uterine bleeding (AUB) N93.9 Active 08185737004621 Problem Major depressive disorder, single episode, moderate F32.1 Active 172134068 Problem Abnormal uterine bleeding N93.9 Active 29046279287892 Problem Menorrhagia with irregular cycle N92.1 Active 971290466 ALLERGIES No Information ENCOUNTERS Encounter Location Date Diagnosis [facility] [address] [place] [address] Nov, Strep pharyngitis J02.0 and Sore throat J02.9 [facility] [id number] [place] [id number] May, Dental examination Z01.20 [place] [address] [address] May, Major depressive disorder, single episode, moderate F32.1 [facility] [id number] [place] [address] May, Major depressive disorder, single episode, moderate F32.1 [place] [id number] [place] [address] Apr, Arthralgia, unspecified joint M25.50 and Trigger point of left side of body M79.1 [facility] [id number] [place] [address] Dec, [place] [id number] [place] [address] Oct, Menorrhagia with irregular cycle N92.1 and Abnormal uterine bleeding (AUB) N93.9 [facility] [id number] [place] [address] 02 Oct, 2016 [facility] [id number] [place] [address] Sep, [facility] [address] [address] Sep, [facility] [address] [address] Sep, [facility] [address] [address] Sep, [facility] [address] [address] Sep, Abnormal uterine bleeding N93.9 and Urinary frequency R35.0 [facility] [address] [address] Aug, Breast lump in upper outer quadrant N63 [facility] [address] [address] 16 May, 2016 Pelvic pain R10.2 and Cervical motion tenderness N94.9 [facility] [id number] [place] [id number] Dec, Dental caries K02.9 [facility] [address] [address] 30 Nov, 2016 Dental examination Z01.20 [facility] [id number] [place] [address] 14 Sep, 2015 Screening for diabetes mellitus Z13.1 and Near syncope R55 [facility] [address] [address] Apr, Headache 784.0 [facility] [address] [address] Dec, [facility] [address] [place] [address] 13 Dec, 2014 [facility] [place] [facility] [address] [id number] [place] [address] May, [facility] [place] [facility] [address] [id number] [place] [address] May, [facility] [place] [facility] [address] [id number] [place] [address] May, [facility] [place] [facility] [address] [id number] [place] [address] May, [facility] [place] [facility] [address] [id number] [place] [address] May, [facility] [place] [facility] [address] [id number] [place] [address] May, [facility] [place] [facility] [address] [id number] [place] [address] Apr, [facility] [place] [facility] [address] [id number] [place] [address] Apr, [facility] [place] [facility] [address] [id number] [place] [address] Mar, [facility] [place] [facility] [address] [id number] [place] [address] Mar, [facility] [place] [facility] [address] [id number] [place] [address] January, [facility] [place] [facility] [address] [id number] [place] [address] January, [facility] [place] [facility] [address] [id number] [place] [address] Dec, [facility] [place] [facility] [address] [id number] [place] [address] Dec, [facility] [place] [facility] [address] [id number] [place] [address] Dec, [facility] [place] [facility] [address] [id number] [place] [address] Dec, [facility] [address] [id number] [place] [address] Apr, [facility] [address] [id number] [place] [address] Feb, [facility] [address] [id number] [place] [address] January, [facility] [address] [id number] [place] [address] January, [facility] [address] [id number] [place] [address] January, [facility] [address] [id number] [place] [address] January, [facility] [address] [id number] [place] [address] January, [facility] [address] [id number] [place] [address] January, [facility] [address] [id number] [place] [address] Sep, [facility] [address] [id number] [place] [address] Sep, [facility] [address] [id number] [place] [address] Sep, [facility] [address] [id number] [place] [address] Aug, [facility] [address] [id number] [place] [address] Aug, [facility] [address] [id number] [place] [address] Aug, [facility] [address] [id number] [place] [address] Aug, [facility] [address] [facility] [id number], [place] [address] Aug, [facility] [address] [facility] [id number], [place] [address] Aug, [facility] [address] [facility] [id number], [place] [address] Aug, [facility] [address] [facility] [id number], [place] [address] Aug, [facility] [address] [facility] [id number], [place] [address] Aug, [facility] [address] [facility] [id number], [place] [address] Mar, [facility] [address], [place] [address] Mar, [facility] [address], [place] [address] Jul, [facility] [address], [place] [address] Jun, [facility] [address], [place] [address] Jul, [facility] [address], [place] [address] Jul, [facility] [address], [place] [address] Jun, [facility] [address] [id number], [place] [address] Jun, IMMUNIZATIONS No Known Immunizations SOCIAL HISTORY Never Assessed REASON FOR VISIT [facility] PLAN OF CARE VITAL SIGNS MEDICATIONS No Known Medications RESULTS No Results PROCEDURES No Known procedures INSTRUCTIONS MEDICATIONS ADMINISTERED No Known Medications MEDICAL (GENERAL) HISTORY Type Description Date Medical History Anemia Surgical History Section x2 Surgical History tubal ligation Surgical History Hysterectomy 12/2016 Hospitalization History Post hemmorhage
--- OUTSIDE RECORDS SUMMARY | 2019-02-09 08:44 | XMS REPORT ---
Author Author Migration, Doctor Organization [facility] Address Unknown Phone Unavailable Care Team Providers [facility] Name Role Phone Migration, Doctor Unavailable Unavailable PROBLEMS Type Condition ICD9-CM Code CPN37-GP Code Onset Dates Condition Status SNOMED Code Problem Abnormal uterine bleeding (AUB) N93.9 Active 45315926000129 Problem Major depressive disorder, single episode, moderate F32.1 Active 595807582 Problem Abnormal uterine bleeding N93.9 Active 64005121266559 Problem Menorrhagia with irregular cycle N92.1 Active [id number] ALLERGIES No Information ENCOUNTERS Encounter Location Date Diagnosis [address] [address] Dec, [address] [address] Nov, Epigastric pain R10.13 [facility] [address] [place] [address] Nov, Strep pharyngitis J02.0 and Sore throat J02.9 [facility] [address] [place] [phone] May, Dental examination Z01.20 [facility] [address] [place] [address] May, Major depressive disorder, single episode, moderate F32.1 [facility] [address] [place] [address] May, Major depressive disorder, single episode, moderate F32.1 [facility] [address] [place] [address] Apr, Arthralgia, unspecified joint M25.50 and Trigger point of left side of body M79.1 [facility] [id number] [place] [address] Dec, [facility] [id number] [place] [address] Oct, Menorrhagia with irregular cycle N92.1 and Abnormal uterine bleeding (AUB) N93.9 [facility] [id number] [place] [address] Oct, [facility] [address] [address] Sep, [facility] [address] [address] Sep, [facility] [address] [address] Sep, [facility] [address] [address] Sep, [facility] [address] [address] Sep, Abnormal uterine bleeding N93.9 and Urinary frequency R35.0 [facility] [address] [address] Aug, Breast lump in upper outer quadrant N63 [facility] [id number] [place] [address] 16 May, 2016 Pelvic pain R10.2 and Cervical motion tenderness N94.9 [facility] [id number] [place] [id number] Dec, Dental caries K02.9 [facility] [id number] [place] [address] 30 Nov, 2015 Dental examination Z01.20 [facility] [address] [address] 14 Sep, 2015 Screening for diabetes mellitus Z13.1 and Near syncope R55 [facility] [address] [address] Apr, Headache 784.0 [facility] [address] [id number] [place] [address] 14 Dec, 2014 [facility] [place] [facility] [address] [id number] [place] [address] Dec, [facility] [place] [facility] [address] [id number] [place] [address] May, [facility] [place] [facility] [address] [id number] [place] [address] May, [facility] [place] [facility] [address] [id number] [place] [address] May, [facility] [place] [facility] [address] [id number] [place] [address] May, [facility] [place] [facility] [address] [facility] [id number] [place] [address] May, [facility] [place] [facility] [address] [id number] [place] [address] May, [facility] [place] [facility] [address] [id number] [place] [address] Apr, [facility] [place] [facility] [address] [facility] [id number] [place] [address] Apr, [facility] [place] [facility] [address] [id number] [place] [address] Mar, [facility] [place] [facility] [address] [id number] [place] [address] Mar, [facility] [place] [facility] [address] [id number] [place] [address] January, [facility] [place] [facility] [address] [facility] [id number] [place] [address] January, [facility] [place] [facility] [address] [facility] [id number] [place] [address] Dec, [facility] [place] [facility] [address] [id number] [place] [address] Dec, [facility] [address] [id number] [place] [address] Dec, [facility] [place] [facility] [address] [id number] [place] [address] Dec, [facility] [address] [id number] [place] [address] Apr, [facility] [address] [id number] [place] [address] Feb, [facility] [address] [id number] [place] [address] January, [facility] [address] [id number] [place] [address] January, [facility] [address] [id number] [place] [address] January, [facility] [address] [id number] [place] [address] January, [facility] [address] [id number] [place] [address] January, [facility] [address] [id number] [place] [address] January, [facility] [address] [id number] [place] [address] Sep, [facility] [address] [id number] [place] [address] Sep, [facility] [place] [facility] [address] [id number] [place] [address] Sep, [facility] [place] [facility] [address] [id number] [place] [address] Aug, [facility] [address] [id number] [place] [address] Aug, [facility] [address] [id number] [place] [address] Aug, [facility] [address] [id number] [place] [address] Aug, [facility] [address] [facility] [id number] [place] [address] Aug, [facility] [address] [id number] [place] [address] Aug, [facility] [address] [id number] [place] [address] Aug, [facility] [address] [facility] [id number] [place] [address] Aug, [facility] [address] [facility] [id number] [place] [address] Aug, [facility] [address] [facility] [id number] [place] [address] Mar, [facility] [address] [facility] [id number] [place] [address] Mar, [facility] [address] [facility] [id number] [place] [address] Jul, [facility] [address] [facility] [id number] [place] [address] Jun, [facility] [address] [facility] [id number] [place] [address] Jul, [facility] [address] [facility] [id number] [place] [address] Jul, [facility] [address] [facility] [id number] [place] [address] Jun, [facility] [address] [facility] [id number] [place] [address] Jun, IMMUNIZATIONS No Known Immunizations SOCIAL HISTORY Never Assessed REASON FOR VISIT [facility] [place] OF CARE VITAL SIGNS MEDICATIONS Medication Instructions Dosage Frequency Start Date End Date Duration Status Bactroban 2 % 1 adela by Topical route 2 times per day for 14 day(s) January, Active Bactrim DS 800-160 mg 1 tablet by Oral route 2 times per day for 10 day(s) January, Active Clindamycin HCl 300 mg 1 capsule by Oral route every 12 hours for 7 day(s) January, Active Zithromax Z-Shravan 250 mg 2 tablet by Oral route 1 time per day for 1 days then take 1 tab daily on days 2-5 Dec, Active RESULTS No Results PROCEDURES No Known procedures INSTRUCTIONS MEDICATIONS ADMINISTERED No Known Medications MEDICAL (GENERAL) HISTORY Type Description Date Medical History Anemia Surgical History Section x2 Surgical History tubal ligation Surgical History Hysterectomy 12/2016 Hospitalization History Post hemmorhage
--- OUTSIDE RECORDS SUMMARY | 2019-02-09 08:44 | XMS REPORT ---
Author Author Migration, Doctor Organization [facility] Address Unknown Phone Unavailable Care Team Providers Care Advertising Associate Name Role Phone Migration, Doctor Unavailable Unavailable PROBLEMS Type Condition ICD9-CM Code [id number] Code Onset Dates Condition Status SNOMED Code Problem Abnormal uterine bleeding (AUB) N93.9 Active 17861903711132 Problem Major depressive disorder, single episode, moderate F32.1 Active 093634544 Problem Abnormal uterine bleeding N93.9 Active 73838836264524 Problem Menorrhagia with irregular cycle N92.1 Active 843594606 ALLERGIES No Information ENCOUNTERS Encounter Location Date Diagnosis [facility] [address] [place] [address] Nov, Strep pharyngitis J02.0 and Sore throat J02.9 [facility] [id number] [place] [phone] May, Dental examination Z01.20 [place] [address] [address] May, Major depressive disorder, single episode, moderate F32.1 [facility] [id number] [place] [address] May, Major depressive disorder, single episode, moderate F32.1 [place] [id number] [place] [address] Apr, Arthralgia, unspecified joint M25.50 and Trigger point of left side of body M79.1 [facility] [id number] [place] [address] Dec, [place] [id number] [place] [address] Oct, Menorrhagia with irregular cycle N92.1 and Abnormal uterine bleeding (AUB) N93.9 [facility] [id number] [place] [address] 02 Oct, 2016 [facility] [id number] [place] [address] Sep, [facility] [address] [address] Sep, [facility] [address] [address] Sep, [facility] [address] [address] Sep, [facility] [address] [address] Sep, Abnormal uterine bleeding N93.9 and Urinary frequency R35.0 [facility] [address] [address] Aug, Breast lump in upper outer quadrant N63 [facility] [address] [address] 16 May, 2016 Pelvic pain R10.2 and Cervical motion tenderness N94.9 [facility] [id number] [place] [id number] Dec, Dental caries K02.9 [facility] [address] [address] 30 Nov, 2016 Dental examination Z01.20 [facility] [id number] [place] [address] 14 Sep, 2015 Screening for diabetes mellitus Z13.1 and Near syncope R55 [facility] [address] [address] Apr, Headache 784.0 [facility] [address] [address] Dec, [facility] [address] [place] [address] 13 Dec, 2014 [facility] [place] [facility] [address] [id number] [place] [address] May, [facility] [place] [facility] [address] [id number] [place] [address] May, [facility] [place] [facility] [address] [id number] [place] [address] May, [facility] [place] [facility] [address] [id number] [place] [address] May, [facility] [place] [facility] [address] [id number] [place] [address] May, [facility] [place] [facility] [address] [id number] [place] [address] May, [facility] [place] [facility] [address] [id number] [place] [address] Apr, [facility] [place] [facility] [address] [id number] [place] [address] Apr, [facility] [place] [facility] [address] [id number] [place] [address] Mar, [facility] [place] [facility] [address] [id number] [place] [address] Mar, [facility] [place] [facility] [address] [id number] [place] [address] January, [facility] [place] [facility] [address] [id number] [place] [address] January, [facility] [place] [facility] [address] [id number] [place] [address] Dec, [facility] [place] [facility] [address] [id number] [place] [address] Dec, [facility] [place] [facility] [address] [id number] [place] [address] Dec, [facility] [place] [facility] [address] [id number] [place] [address] Dec, [facility] [address] [id number] [place] [address] Apr, [facility] [address] [id number] [place] [address] Feb, [facility] [address] [id number] [place] [address] January, [facility] [address] [id number] [place] [address] January, [facility] [address] [id number] [place] [address] January, [facility] [address] [id number] [place] [address] January, [facility] [address] [id number] [place] [address] January, [facility] [address] [id number] [place] [address] January, [facility] [address] [id number] [place] [address] Sep, [facility] [address] [id number] [place] [address] Sep, [facility] [address] [id number] [place] [address] Sep, [facility] [address] [id number] [place] [address] Aug, [facility] [address] [id number] [place] [address] Aug, [facility] [address] [id number] [place] [address] Aug, [facility] [id number] [place] [address] Aug, [facility] [address] [facility] [id number], [place] [address] Aug, [facility] [address] [facility] [id number], [place] [address] Aug, [facility] [address] [facility] [id number], [place] [address] Aug, [facility] [address] [facility] [id number], [place] [address] Aug, [facility] [address] [facility] [id number], [place] [address] Aug, [facility] [address] [facility] [id number], [place] [address] Mar, [facility] [address] [place] [address] Mar, [facility] [address], [place] [address] Jul, [facility] [address], [place] [address] Jun, [facility] [address], [place] [address] Jul, [facility] [address], [place] [address] Jul, [facility] [address], [place] [address] Jun, [facility] [id number] [address] Jun, IMMUNIZATIONS No Known Immunizations SOCIAL HISTORY Never Assessed REASON FOR VISIT [facility] [place]AN OF CARE VITAL SIGNS MEDICATIONS No Known Medications RESULTS No Results PROCEDURES No Known procedures INSTRUCTIONS MEDICATIONS ADMINISTERED No Known Medications MEDICAL (GENERAL) HISTORY Type Description Date Medical History Anemia Surgical History Section x2 Surgical History tubal ligation Surgical History Hysterectomy 12/2016 Hospitalization History Post hemmorhage
--- OUTSIDE RECORDS SUMMARY | 2019-02-09 08:44 | XMS REPORT ---
Author Author Migration, Doctor Organization [facility] Address Unknown Phone Unavailable Care Team Providers Care Jacquard Loom Carpet Weaver Name Role Phone Migration, Doctor Unavailable Unavailable PROBLEMS Type Condition ICD9-CM Code [id number] Code Onset Dates Condition Status SNOMED Code Problem Abnormal uterine bleeding (AUB) N93.9 Active 40185244461209 Problem Major depressive disorder, single episode, moderate F32.1 Active 160891062 Problem Abnormal uterine bleeding N93.9 Active 03562609742279 Problem Menorrhagia with irregular cycle N92.1 Active 084558689 ALLERGIES No Information ENCOUNTERS Encounter Location Date Diagnosis [facility] [address] [place] [address] Nov, Strep pharyngitis J02.0 and Sore throat J02.9 [facility] [id number] [place] [phone] May, Dental examination Z01.20 [place] [address] [address] May, Major depressive disorder, single episode, moderate F32.1 [facility] [place] [id number] [place] [address] May, Major depressive disorder, single episode, moderate F32.1 [place] [id number] [place] [address] Apr, Arthralgia, unspecified joint M25.50 and Trigger point of left side of body M79.1 [facility] [place] [id number] [place] [address] Dec, [place] [id number] [place] [address] Oct, Menorrhagia with irregular cycle N92.1 and Abnormal uterine bleeding (AUB) N93.9 [facility] [place] [id number] [place] [address] 02 Oct, 2016 [facility] [place] [id number] [place] [address] Sep, [facility] [place] [address] [address] Sep, [facility] [place] [address] [address] Sep, [facility] [place] [address] [address] Sep, [facility] [place] [address] [address] Sep, Abnormal uterine bleeding N93.9 and Urinary frequency R35.0 [facility] [place] [address] [address] Aug, Breast lump in upper outer quadrant N63 [facility] [address] [address] 16 May, 2016 Pelvic pain R10.2 and Cervical motion tenderness N94.9 [facility] [id number] [place] [phone] Dec, Dental caries K02.9 [facility] [place] [address] [address] 30 Nov, 2016 Dental examination Z01.20 [facility] [place] [id number] [place] [address] 14 Sep, 2015 Screening for diabetes mellitus Z13.1 and Near syncope R55 [facility] [place] [address] [address] Apr, Headache 784.0 [facility] [place] [address] [address] Dec, [facility] [place] [address] [place] [address] 13 Dec, 2014 [facility] [place] [facility] [address] [id number] [place] [address] May, [facility] [place] [facility] [address] [id number] [place] [address] May, [facility] [place] [facility] [address] [id number] [place] [address] May, [facility] [place] [facility] [address] [id number] [place] [address] May, [facility] [place] [facility] [address] [id number] [place] [address] May, [facility] [place] [facility] [address] [id number] [place] [address] May, [facility] [place] [facility] [address] [id number] [place] [address] Apr, [facility] [place] [facility] [address] [id number] [place] [address] Apr, [facility] [place] [facility] [address] [id number] [place] [address] Mar, [facility] [place] [facility] [address] [id number] [place] [address] Mar, [facility] [place] [facility] [address] [id number] [place] [address] January, [facility] [place] [facility] [address] [id number] [place] [address] January, [facility] [place] [facility] [address] [id number] [place] [address] Dec, [facility] [place] [facility] [address] [id number] [place] [address] Dec, [facility] [place] [facility] [address] [id number] [place] [address] Dec, [facility] [place] [facility] [address] [id number] [place] [address] Dec, [facility] [address] [id number] [place] [address] Apr, [facility] [address] [id number] [place] [address] Feb, [facility] [address] [id number] [place] [address] January, [facility] [address] [id number] [place] [address] January, [facility] [address] [id number] [place] [address] January, [facility] [address] [id number] [place] [address] January, [facility] [address] [id number] [place] [address] January, [facility] [address] [id number] [place] [address] January, [facility] [address] [id number] [place] [address] Sep, [facility] [address] [id number] [place] [address] Sep, [facility] [address] [id number] [place] [address] Sep, [facility] [address] [id number] [place] [address] Aug, [facility] [address] [id number] [place] [address] Aug, [facility] [address] [id number] [place] [address] Aug, [facility] [address] [id number] [place] [address] Aug, [facility] [place] [address] [facility] [id number], [place] [address] Aug, [facility] [place] [address] [facility] [id number], [place] [address] Aug, [facility] [place] [address] [facility] [id number], [place] [address] Aug, [facility] [place] [address] [facility] [id number], [place] [address] Aug, [facility] [place] [address] [facility] [id number], [place] [address] Aug, [facility] [place] [address] [facility] [id number], [place] [address] Mar, [facility] [place] [address], [place] [address] Mar, [facility] [place] [address], [place] [address] Jul, [facility] [place] [address], [place] [address] Jun, [facility] [place] [address], [place] [address] Jul, [facility] [place] [address], [place] [address] Jul, [facility] [place] [address], [place] [address] Jun, [facility] [place] [address] [id number], [place] [address] Jun, IMMUNIZATIONS No Known Immunizations SOCIAL HISTORY Never Assessed REASON FOR VISIT [facility] PLAN OF CARE VITAL SIGNS MEDICATIONS No Known Medications RESULTS No Results PROCEDURES No Known procedures INSTRUCTIONS MEDICATIONS ADMINISTERED No Known Medications MEDICAL (GENERAL) HISTORY Type Description Date Medical History Anemia Surgical History Section x2 Surgical History tubal ligation Surgical History Hysterectomy 12/2016 Hospitalization History Post hemmorhage
--- OUTSIDE RECORDS SUMMARY | 2019-02-09 08:44 | XMS REPORT ---
Author Author EVAN TONY [facility] Address [address] [place] [address] Care Team Providers Care Area Representative Name Role Phone EVAN TONY Unavailable PROBLEMS Type Condition ICD9-CM Code [id number] Code Onset Dates Condition Status SNOMED Code Problem Major depressive disorder, single episode, moderate F32.1 Active 869232335 Problem Abnormal uterine bleeding (AUB) N93.9 Active 92205979659239 Problem Menorrhagia with irregular cycle N92.1 Active 538131515 Problem Abnormal uterine bleeding N93.9 Active 59788330841755 ALLERGIES Unknown Allergies SOCIAL HISTORY No smoking Hx information available PLAN OF CARE VITAL SIGNS MEDICATIONS Unknown Medications RESULTS No Results PROCEDURES No Known procedures IMMUNIZATIONS No Known Immunizations
--- OUTSIDE RECORDS SUMMARY | 2019-02-09 08:45 | XMS REPORT ---
Author Author EVAN TONY [facility] Address [address] [place] [address] Care Team Providers Care Network Contract Manager Name Role Phone EVAN TONY Unavailable PROBLEMS Type Condition ICD9-CM Code PXI44-DW Code Onset Dates Condition Status SNOMED Code Problem Major depressive disorder, single episode, moderate F32.1 Active 942416559 Problem Abnormal uterine bleeding (AUB) N93.9 Active 51664924940734 Problem Menorrhagia with irregular cycle N92.1 Active 356835837 Problem Abnormal uterine bleeding N93.9 Active 50651423097658 ALLERGIES Unknown Allergies SOCIAL HISTORY No smoking Hx information available PLAN OF CARE VITAL SIGNS MEDICATIONS Unknown Medications RESULTS No Results PROCEDURES No Known procedures IMMUNIZATIONS No Known Immunizations
--- OUTSIDE RECORDS SUMMARY | 2019-02-09 08:45 | XMS REPORT ---
Author Author EVAN TONY [facility] Address [address] [place] [address] Care Team Providers Care Cub Reporter Name Role Phone EVAN TONY Unavailable PROBLEMS Type Condition ICD9-CM Code BHR43-BJ Code Onset Dates Condition Status SNOMED Code Problem Major depressive disorder, single episode, moderate F32.1 Active 303907322 Problem Abnormal uterine bleeding (AUB) N93.9 Active 97022999243137 Problem Menorrhagia with irregular cycle N92.1 Active 054932677 Problem Abnormal uterine bleeding N93.9 Active 06344325143851 ALLERGIES Unknown Allergies SOCIAL HISTORY No smoking Hx information available PLAN OF CARE VITAL SIGNS MEDICATIONS Unknown Medications RESULTS No Results PROCEDURES No Known procedures IMMUNIZATIONS No Known Immunizations
--- OUTSIDE RECORDS SUMMARY | 2019-02-09 08:45 | XMS REPORT ---
Author Author EVAN TONY Organization [facility] Address [address] [place] [address] Care Team Providers Care Learning Disabled Teacher Name Role Phone EVAN TONY Unavailable PROBLEMS Type Condition ICD9-CM Code GSH77-JD Code Onset Dates Condition Status SNOMED Code Problem Major depressive disorder, single episode, moderate F32.1 Active 988454808 Problem Abnormal uterine bleeding (AUB) N93.9 Active 18701970043785 Problem Menorrhagia with irregular cycle N92.1 Active 821951211 Problem Abnormal uterine bleeding N93.9 Active 95042339522195 ALLERGIES Substance Reaction Event Type Date Status Stadol combative Drug Allergy Oct, Active Cephalexin Unknown Drug Allergy Oct, Active SOCIAL HISTORY Never Assessed PLAN OF CARE Activity Details Follow Up prn with PCP Reason: VITAL SIGNS Height 66 in 2016-10-29 Weight 192 lbs 2016-10-29 Temperature 98.4 degrees Fahrenheit 2016-10-29 Heart Rate 90 bpm 2016-10-29 Respiratory Rate 18 2016-10-29 BMI 30.99 kg/m2 2016-10-29 Blood pressure systolic 110 mmHg 2016-10-29 Blood pressure diastolic 70 mmHg 2016-10-29 MEDICATIONS Unknown Medications RESULTS No Results PROCEDURES No Known procedures IMMUNIZATIONS No Known Immunizations MEDICAL (GENERAL) HISTORY Type Description Date Medical History Anemia Surgical History Section x2 Surgical History tubal ligation Surgical History Hysterectomy 12/2016 Hospitalization History Post hemmorhage
--- OUTSIDE RECORDS SUMMARY | 2019-02-09 08:45 | XMS REPORT ---
Author Author EVAN TONY [facility] Address [address] [place] [address] Care Team Providers Care Research Animal Facility Supervisor Name Role Phone EVAN TONY Unavailable PROBLEMS Type Condition ICD9-CM Code WEP47-RB Code Onset Dates Condition Status SNOMED Code Problem Major depressive disorder, single episode, moderate F32.1 Active 965444185 Problem Abnormal uterine bleeding (AUB) N93.9 Active 94631710005041 Problem Menorrhagia with irregular cycle N92.1 Active 165227099 Problem Abnormal uterine bleeding N93.9 Active 30285555461987 ALLERGIES Substance Reaction Event Type Date Status Stadol combative Drug Allergy Sep, Active Cephalexin Unknown Drug Allergy Sep, Active SOCIAL HISTORY No smoking Hx information available PLAN OF CARE Activity Details Follow Up 1 month with Cherri Reason: VITAL SIGNS Height 66 in 2016-10-07 Weight 190.6 lbs 2016-10-07 Heart Rate 82 bpm 2016-10-07 Respiratory Rate 20 2016-10-07 BMI 30.76 kg/m2 2016-10-07 Blood pressure systolic 112 mmHg 2016-10-07 Blood pressure diastolic 86 mmHg 2016-10-07 MEDICATIONS Medication Instructions Dosage Frequency Start Date End Date Duration Status Ibuprofen 800 MG Orally Three times a day as needed 1 tablet Active Tylenol 325 MG Orally every 6 hrs 2 tablets as needed 6h Active Macrobid 100 MG Orally every 12 hrs 1 capsule with food 12h Sep, Sep, 05 days Active RESULTS No Results PROCEDURES Procedure Date Ordered Related Diagnosis Body Site HESS VAG, DNA, DIR PROBE Oct 07, 2016 TRICHOMONAS ASSAY W/OPTIC Oct 07, 2016 Office Visit, Est Pt., Level 4 Oct 07, 2016 VENIPUNCT, ROUTINE* Oct 07, 2016 COMPLETE CBC W/AUTO DIFF WBC Oct 07, 2016 CULTURE, BACTERIA, OTHER Oct 07, 2016 URINALYSIS, AUTO, W/O SCOPE Oct 07, 2016 No Charge Oct 07, 2016 ASSAY THYROID STIM HORMONE Oct 07, 2016 COMPREHEN METABOLIC PANEL Oct 07, 2016 URINE-NO MICRO Oct 07, 2016 URINE TEST Oct 07, 2016 IMMUNIZATIONS No Known Immunizations
--- OUTSIDE RECORDS SUMMARY | 2019-02-09 08:45 | XMS REPORT ---
Author Author EVAN TONY [facility] Address [address] [place] [address] Care Team Providers Care Casting Room Operator Name Role Phone EVAN TONY Unavailable PROBLEMS Type Condition ICD9-CM Code GSZ35-JA Code Onset Dates Condition Status SNOMED Code Problem Major depressive disorder, single episode, moderate F32.1 Active 211843512 Problem Abnormal uterine bleeding (AUB) N93.9 Active 83327726783279 Problem Menorrhagia with irregular cycle N92.1 Active 777917397 Problem Abnormal uterine bleeding N93.9 Active 17993074249730 ALLERGIES Unknown Allergies SOCIAL HISTORY No smoking Hx information available PLAN OF CARE VITAL SIGNS MEDICATIONS Unknown Medications RESULTS No Results PROCEDURES No Known procedures IMMUNIZATIONS No Known Immunizations
--- OUTSIDE RECORDS SUMMARY | 2019-02-09 08:45 | XMS REPORT ---
Author Author TERESA CASTANON Organization [facility] Address [address] [place] [address] Care Team Providers Care Property Insurance Inspector Name Role Phone TERESA CASTANON Unavailable PROBLEMS Type Condition ICD9-CM Code ORL08-PB Code Onset Dates Condition Status SNOMED Code Problem Abnormal uterine bleeding (AUB) N93.9 Active 30065099554899 Problem Menorrhagia with irregular cycle N92.1 Active 674248719 Problem Abnormal uterine bleeding N93.9 Active 09829875127452 ALLERGIES Substance Reaction Event Type Date Status Stadol combative Drug Allergy Aug, Active Cephalexin Unknown Drug Allergy Aug, Active SOCIAL HISTORY No smoking Hx information available PLAN OF CARE Activity Details Follow Up prn Reason: VITAL SIGNS Height 66 in 2016-09-15 Weight 191 lbs 2016-09-15 Temperature 98.3 degrees Fahrenheit 2016-09-15 Heart Rate 80 bpm 2016-09-15 Respiratory Rate 20 2016-09-15 BMI 30.82 kg/m2 2016-09-15 Blood pressure systolic 120 mmHg 2016-09-15 Blood pressure diastolic 82 mmHg 2016-09-15 MEDICATIONS Medication Instructions Dosage Frequency Start Date End Date Duration Status Ibuprofen 800 MG Orally Three times a day as needed 1 tablet Active Tylenol 325 MG Orally every 6 hrs 2 tablets as needed 6h Active RESULTS Name Result Date Reference Range Mammogram Dx, Bilateral 2016-09-23 PROCEDURES Procedure Date Ordered Related Diagnosis Body Site Office Visit, Est Pt., Level 3 Sep 15, 2016 IMMUNIZATIONS No Known Immunizations
--- OUTSIDE RECORDS SUMMARY | 2019-02-09 08:45 | XMS REPORT ---
Author Author GAVIN DE LEÓN Organization [facility] Address [address] [place] [address] Care Team Providers Care Spray Ii Painter Name Role Phone GAVIN DE LEÓN Unavailable PROBLEMS Type Condition ICD9-CM Code YXI45-KH Code Onset Dates Condition Status SNOMED Code Problem Major depressive disorder, single episode, moderate F32.1 Active 018299325 Problem Abnormal uterine bleeding (AUB) N93.9 Active 08072313342863 Problem Menorrhagia with irregular cycle N92.1 Active 097397888 Problem Abnormal uterine bleeding N93.9 Active 37696009800169 ALLERGIES No Information ENCOUNTERS Encounter Location Date Diagnosis [facility] [address] [id number] May, Dental examination Z01.20 [place] [id number] [place] [address] May, Major depressive disorder, single episode, moderate F32.1 [place] [id number] [place] [address] May, Major depressive disorder, single episode, moderate F32.1 [place] [id number] [place] [address] Apr, Arthralgia, unspecified joint M25.50 and Trigger point of left side of body M79.1 [place] [id number] [place] [address] Dec, [place] [id number] [place] [address] Oct, Menorrhagia with irregular cycle N92.1 and Abnormal uterine bleeding (AUB) N93.9 [place] [id number] [place] [address] Oct, [facility] [address] [address] Sep, [facility] [address] [address] Sep, [facility] [address] [address] Sep, [facility] [address] [address] Sep, [facility] [address] [address] Sep, Abnormal uterine bleeding N93.9 and Urinary frequency R35.0 [facility] [address] [address] Aug, Breast lump in upper outer quadrant N63 [facility] [address] [address] 16 May, 2016 Pelvic pain R10.2 and Cervical motion tenderness N94.9 [facility] [address] [id number] Dec, Dental caries K02.9 [facility] [address] [address] 30 Nov, 2015 Dental examination Z01.20 [facility] [address] [address] 14 Sep, 2015 Screening for diabetes mellitus Z13.1 and Near syncope R55 [facility] [address] [address] Apr, Headache 784.0 [facility] [address] [address] Dec, [facility] [address] [address] Dec, [facility] [place] [facility] [address] [id number] [place] [address] May, [facility] [place] [facility] [address] [id number] [place] [address] May, [facility] [place] [facility] [address] [id number] [place] [address] May, [facility] [place] [facility] [address] [id number] [place] [address] May, [facility] [place] [facility] [address] [id number] [place] [address] May, [facility] [place] [facility] [address] [id number] [place] [address] May, [facility] [place] [facility] [address] [id number] [place] [address] Apr, [facility] [place] [facility] [address] [id number] [place] [address] Apr, [facility] [place] [facility] [address] [id number] [place] [address] Mar, [facility] [place] [facility] [address] [id number] [place] [address] Mar, [facility] [place] [facility] [address] [id number] [place] [address] January, [facility] [place] [facility] [address] [id number] [place] [address] January, [facility] [place] [facility] [address] [id number] [place] [address] Dec, [facility] [place] [facility] [address] [id number] [place] [address] Dec, [facility] [place] [facility] [address] [id number] [place] [address] Dec, [facility] [place] [facility] [address] [id number] [place] [address] Dec, [facility] [address] [id number] [place] [address] Apr, [facility] [address] [id number] [place] [address] Feb, [facility] [address] [id number] [place] [address] January, [facility] [address] [id number] [place] [address] January, [facility] [address] [id number] [place] [address] January, [facility] [address] [id number] [place] [address] January, [facility] [address] [id number] [place] [address] January, [facility] [address] [id number] [place] [address] January, [facility] [address] [id number] [place] [address] Sep, [facility] [address] [id number] [place] [address] Sep, [facility] [address] [id number] [place] [address] Sep, [facility] [place] [facility] [address] [id number] [place] [address] Aug, [facility] [place] [facility] [address] [id number] [place] [address] Aug, [facility] [place] [facility] [address] [id number] [place] [address] Aug, [facility] [place] [facility] [address] [id number] [place] [address] Aug, [facility] [address] [address] Aug, [facility] [address] [address] Aug, [facility] [address] [address] Aug, [facility] [address] [address] Aug, [facility] [address] [address] Aug, [facility] [id number] [place] [address] Mar, [facility] [address] [address] Mar, [facility] [id number] [place] [address] Jul, [facility] [address] [address] Jun, [facility] [id number] [place] [address] Jul, [facility] [address] [address] Jul, [facility] [address], [place] [address] Jun, [facility] [id number] [address] Jun, IMMUNIZATIONS No Known Immunizations SOCIAL HISTORY Never Assessed REASON FOR VISIT BH intake, Depression and anxiety. PLAN OF CARE Activity Details Follow Up prn Reason: VITAL SIGNS MEDICATIONS No Known Medications RESULTS No Results PROCEDURES Procedure Date Ordered Result Body Site Psychotherapy, patient &/family, 30 minutes, established patient May 28, 2017 INSTRUCTIONS MEDICATIONS ADMINISTERED No Known Medications MEDICAL (GENERAL) HISTORY Type Description Date Medical History Anemia Surgical History Section x2 Surgical History tubal ligation Surgical History Hysterectomy 12/2016 Hospitalization History Post hemmorhage
--- OUTSIDE RECORDS SUMMARY | 2019-02-09 08:45 | XMS REPORT ---
Author Author PARRIS DUENAS [facility] Address Unknown Care Team Providers Care Wooden Fence Erector Name Role Phone PARRIS DUENAS Unavailable PROBLEMS Type Condition ICD9-CM Code [id number] Code Onset Dates Condition Status SNOMED Code Problem Major depressive disorder, single episode, moderate F32.1 Active 038661730 Problem Abnormal uterine bleeding (AUB) N93.9 Active 27708099214231 Problem Menorrhagia with irregular cycle N92.1 Active 522006535 Problem Abnormal uterine bleeding N93.9 Active 03040091586264 ALLERGIES Substance Reaction Event Type Date Status Stadol combative Drug Allergy May, Active Cephalexin Unknown Drug Allergy May, Active ENCOUNTERS Encounter Location Date Diagnosis [facility] [id number] [place] [id number] May, Dental examination Z01.20 [facility] [id number] [place] [address] May, Major depressive disorder, single episode, moderate F32.1 [facility] [id number] [place] [address] May, Major depressive disorder, single episode, moderate F32.1 [facility] [id number] [place] [address] Apr, Arthralgia, unspecified joint M25.50 and Trigger point of left side of body M79.1 [facility] [id number] [place] [address] Dec, [facility] [id number] [place] [address] Oct, Menorrhagia with irregular cycle N92.1 and Abnormal uterine bleeding (AUB) N93.9 [facility] [id number] [place] [address] Oct, [facility] [address] [address] Sep, [facility] [address] [address] Sep, [facility] [address] [address] Sep, [facility] [address] [address] Sep, [facility] [address] [address] Sep, Abnormal uterine bleeding N93.9 and Urinary frequency R35.0 [facility] [address] [address] Aug, Breast lump in upper outer quadrant N63 [facility] [id number] [place] [address] 16 May, 2016 Pelvic pain R10.2 and Cervical motion tenderness N94.9 [facility] [address] [id number] Dec, Dental caries K02.9 [facility] [id number] [place] [address] Nov, Dental examination Z01.20 [facility] [id number] [place] [address] 14 Sep, 2015 Screening for diabetes mellitus Z13.1 and Near syncope R55 [facility] [address] [address] Apr, Headache 784.0 [facility] [address] [address] Dec, [facility] [address] [address] Dec, [facility] [place] [facility] [address] [id number] [place] [address] May, [facility] [place] [facility] [address] [id number] [place] [address] May, [facility] [place] [facility] [address] [id number] [place] [address] May, [facility] [place] [facility] [address] [id number] [place] [address] May, [facility] [place] [facility] [address] [id number] [place] [address] May, [facility] [place] [facility] [address] [id number] [place] [address] May, [facility] [place] [facility] [address] [id number] [place] [address] Apr, [facility] [place] [facility] [address] [id number] [place] [address] Apr, [facility] [place] [facility] [address] [id number] [place] [address] Mar, [facility] [place] [facility] [address] [id number] [place] [address] Mar, [facility] [place] [facility] [address] [id number] [place] [address] January, [facility] [place] [facility] [address] [id number] [place] [address] January, [facility] [place] [facility] [address] [id number] [place] [address] Dec, [facility] [place] [facility] [address] [id number] [place] [address] Dec, [facility] [place] [facility] [address] [id number] [place] [address] Dec, [facility] [place] [facility] [address] [id number] [place] [address] Dec, [facility] [address] [id number] [place] [address] Apr, [facility] [address] [id number] [place] [address] Feb, [facility] [address] [id number] [place] [address] January, [facility] [address] [id number] [place] [address] January, [facility] [address] [id number] [place] [address] January, [facility] [address] [id number] [place] [address] January, [facility] [address] [id number] [place] [address] January, [facility] [address] [id number] [place] [address] January, [facility] [address] [id number] [place] [address] Sep, [facility] [address] [id number] [place] [address] Sep, [facility] [address] [id number] [place] [address] Sep, [facility] [address] [id number] [place] [address] Aug, [facility] [address] [id number] [place] [address] Aug, [facility] [address] [id number] [place] [address] Aug, [facility] [address] [id number] [place] [address] Aug, [facility] [address] [address] Aug, [facility] [address] [address] Aug, [facility] [address] [address] Aug, [facility] [id number] [place] [address] Aug, [facility] [address] [place] [address] Aug, [facility] [id number] [place] [address] Mar, [facility] [id number] [place] [address] Mar, [facility] [address] [place] [address] Jul, [facility] [address] [place] [address] Jun, [facility] [address] [place] [address] Jul, [facility] [address] [address] Jul, [facility] [address] [address] Jun, [facility] [address], [place] [address] Jun, IMMUNIZATIONS No Known Immunizations SOCIAL HISTORY Never Assessed REASON FOR VISIT serenity PLAN OF CARE Activity Details Follow Up prn Reason:HYGIENE/ TE--45 MIN REQUESTED FOR #20 VITAL SIGNS Blood pressure systolic 118 mmHg 2017-06-16 Blood pressure diastolic 76 mmHg 2017-06-16 MEDICATIONS Medication Instructions Dosage Frequency Start Date End Date Duration Status Zoloft 50 mg Orally Once a day 1 tablet 24h 25 May, 2017 30 day(s) Active RESULTS No Results PROCEDURES Procedure Date Ordered Result Body Site LTD ORAL EVALUATION - PROBLEM FOCUS Jun 16, 2017 INTRAORL-PERIAPICAL 1 FILM 82093 Jun 16, 2017 BITEWING - SINGLE FILM Jun 16, 2017 INSTRUCTIONS MEDICATIONS ADMINISTERED No Known Medications MEDICAL (GENERAL) HISTORY Type Description Date Medical History Anemia Surgical History Section x2 Surgical History tubal ligation Surgical History Hysterectomy 12/2016 Hospitalization History Post hemmorhage
--- OUTSIDE RECORDS SUMMARY | 2019-02-09 08:45 | XMS REPORT ---
Author Author EVAN TONY [facility] Address [address] [place] [address] Care Team Providers Care Chocolate Temperer Name Role Phone EVAN TONY Unavailable PROBLEMS Type Condition ICD9-CM Code [id number] Code Onset Dates Condition Status SNOMED Code Problem Major depressive disorder, single episode, moderate F32.1 Active 325256262 Problem Abnormal uterine bleeding (AUB) N93.9 Active 11339389479852 Problem Menorrhagia with irregular cycle N92.1 Active 952402371 Problem Abnormal uterine bleeding N93.9 Active [id number] ALLERGIES Unknown Allergies SOCIAL HISTORY No smoking Hx information available PLAN OF CARE VITAL SIGNS MEDICATIONS Unknown Medications RESULTS No Results PROCEDURES No Known procedures IMMUNIZATIONS No Known Immunizations
--- OUTSIDE RECORDS SUMMARY | 2019-02-09 08:46 | XMS REPORT | Continuity of Care Document ---
Author Organization Unknown Address Unknown Allergies Active Description Code Type Severity Reaction Onset Reported/Identified Relationship to Patient Clinical Status Yes Keflex Drug Allergy 07/16/2009 Yes Keflex Drug Allergy N/A N/A 07/16/2009 Yes butorphanol [id number] Drug Allergy Moderate ANXIETY 02/02/2019 Yes cephalexin [id number] Drug Allergy Mild N/A 02/02/2019 Medications There is no data. Problems Date Dx Coded Attending Type Code Diagnosis Diagnosed By 11/27/2008 611.72 BREAST LUMP OR MASS LEFT 11/27/2008 SIRISHA ALEGRE DO 611.72 BREAST LUMP OR MASS LEFT 11/27/2008 SIRISHA ALEGRE DO 611.72 BREAST LUMP OR MASS LEFT 11/27/2008 611.72 BREAST LUMP OR MASS LEFT 11/27/2008 611.72 BREAST LUMP OR MASS LEFT 11/27/2008 611.72 BREAST LUMP OR MASS LEFT 11/27/2008 611.72 BREAST LUMP OR MASS LEFT 11/27/2008 611.72 BREAST LUMP OR MASS LEFT 11/27/2008 611.72 BREAST LUMP OR MASS LEFT 11/27/2008 611.72 BREAST LUMP OR MASS LEFT 11/27/2008 RONA ARNDT APRN 611.72 BREAST LUMP OR MASS LEFT 11/27/2008 MEL ROLLINS DDS 611.72 BREAST LUMP OR MASS LEFT 11/27/2008 NICOLE GARCIA APRN 611.72 BREAST LUMP OR MASS LEFT 11/27/2008 FRANKI SANCHEZ APRN 611.72 BREAST LUMP OR MASS LEFT 11/25/2009 V65.11 pediatric pre- visit for expectant mother 11/25/2009 SIRISHA ALEGRE DO V65.11 pediatric pre- visit for expectant mother 11/25/2009 SIRISHA ALEGRE DO V65.11 pediatric pre- visit for expectant mother 11/25/2009 V65.11 pediatric pre- visit for expectant mother 11/25/2009 V65.11 pediatric pre- visit for expectant mother 11/25/2009 V65.11 pediatric pre- visit for expectant mother 11/25/2009 V65.11 pediatric pre- visit for expectant mother 11/25/2009 V65.11 pediatric pre- visit for expectant mother 11/25/2009 V65.11 pediatric pre- visit for expectant mother 11/25/2009 V65.11 pediatric pre- visit for expectant mother 11/25/2009 RONA ARNDT APRN V65.11 pediatric pre- visit for expectant mother 11/25/2009 MEL ROLLINS DDS V65.11 pediatric pre- visit for expectant mother 11/25/2009 NICOLE GARCIA APRN V65.11 pediatric pre- visit for expectant mother 11/25/2009 FRANKI SANCHEZ APRN V65.11 pediatric pre- visit for expectant mother 04/16/2010 V25.40 visit for: contraceptive surveillance 04/16/2010 SIRISHA ALEGRE DO V25.40 visit for: contraceptive surveillance 04/16/2010 SIRISHA ALEGRE DO V25.40 visit for: contraceptive surveillance 04/16/2010 V25.40 VISIT FOR: CONTRACEPTIVE SURVEILLANCE 04/16/2010 V25.40 VISIT FOR: CONTRACEPTIVE SURVEILLANCE 04/16/2010 V25.40 VISIT FOR: CONTRACEPTIVE SURVEILLANCE 04/16/2010 V25.40 VISIT FOR: CONTRACEPTIVE SURVEILLANCE 04/16/2010 V25.40 VISIT FOR: CONTRACEPTIVE SURVEILLANCE 04/16/2010 V25.40 VISIT FOR: CONTRACEPTIVE SURVEILLANCE 04/16/2010 V25.40 VISIT FOR: CONTRACEPTIVE SURVEILLANCE 04/16/2010 RONA ARNDT APRN V25.40 VISIT FOR: CONTRACEPTIVE SURVEILLANCE 04/16/2010 MEL ROLLINS DDS V25.40 VISIT FOR: CONTRACEPTIVE SURVEILLANCE 04/16/2010 NICOLE GARCIA APRN V25.40 VISIT FOR: CONTRACEPTIVE SURVEILLANCE 04/16/2010 FRNAKI SANCHEZ APRN V25.40 VISIT FOR: CONTRACEPTIVE SURVEILLANCE 05/20/2010 V25.09 Gynecologic Services Contraceptive General Counseling 05/20/2010 SIRISHA ALEGRE DO V25.09 Gynecologic Services Contraceptive General Counseling 05/20/2010 SIRISHA ALEGRE DO V25.09 Gynecologic Services Contraceptive General Counseling 05/20/2010 V25.09 GYNECOLOGIC SERVICES CONTRACEPTIVE GENERAL COUNSELING 05/20/2010 V25.09 GYNECOLOGIC SERVICES CONTRACEPTIVE GENERAL COUNSELING 05/20/2010 V25.09 GYNECOLOGIC SERVICES CONTRACEPTIVE GENERAL COUNSELING 05/20/2010 V25.09 GYNECOLOGIC SERVICES CONTRACEPTIVE GENERAL COUNSELING 05/20/2010 V25.09 GYNECOLOGIC SERVICES CONTRACEPTIVE GENERAL COUNSELING 05/20/2010 V25.09 GYNECOLOGIC SERVICES CONTRACEPTIVE GENERAL COUNSELING 05/20/2010 V25.09 GYNECOLOGIC SERVICES CONTRACEPTIVE GENERAL COUNSELING 05/20/2010 RONA ARNDT APRN V25.09 GYNECOLOGIC SERVICES CONTRACEPTIVE GENERAL COUNSELING 05/20/2010 MEL ROLLINS DDS V25.09 GYNECOLOGIC SERVICES CONTRACEPTIVE GENERAL COUNSELING 05/20/2010 NICOLE GARCIA APRN V25.09 GYNECOLOGIC SERVICES CONTRACEPTIVE GENERAL COUNSELING 05/20/2010 FRANKI SANCHEZ APRN V25.09 GYNECOLOGIC SERVICES CONTRACEPTIVE GENERAL COUNSELING 07/16/2010 716.90 ARTHRITIS/ ARTHROPATHY, UNSPECIFIED 07/16/2010 SIRISHA ALEGRE DO K 716.90 ARTHRITIS/ ARTHROPATHY, UNSPECIFIED 07/16/2010 SIRISHA ALEGRE DO K 716.90 ARTHRITIS/ ARTHROPATHY, UNSPECIFIED 07/16/2010 716.90 ARTHRITIS/ ARTHROPATHY, UNSPECIFIED 07/16/2010 716.90 ARTHRITIS/ ARTHROPATHY, UNSPECIFIED 07/16/2010 716.90 ARTHRITIS/ ARTHROPATHY, UNSPECIFIED 07/16/2010 716.90 ARTHRITIS/ ARTHROPATHY, UNSPECIFIED 07/16/2010 716.90 ARTHRITIS/ ARTHROPATHY, UNSPECIFIED 07/16/2010 716.90 ARTHRITIS/ ARTHROPATHY, UNSPECIFIED 07/16/2010 716.90 ARTHRITIS/ ARTHROPATHY, UNSPECIFIED 07/16/2010 RONA ARNDT APRN 716.90 ARTHRITIS/ ARTHROPATHY, UNSPECIFIED 07/16/2010 MEL ROLLINS DDS 716.90 ARTHRITIS/ ARTHROPATHY, UNSPECIFIED 07/16/2010 NICOLE GARCIA APRN 716.90 ARTHRITIS/ ARTHROPATHY, UNSPECIFIED 07/16/2010 FRANKI SANCHEZ APRN 716.90 ARTHRITIS/ ARTHROPATHY, UNSPECIFIED 08/11/2010 787.01 NAUSEA WITH VOMITING 08/11/2010 V72.42 EXAMINATION OR TEST POSITIVE RESULT 08/11/2010 ALEGRE DO, SIRISHA K 787.01 NAUSEA WITH VOMITING 08/11/2010 ALEGRE DO, SIRISHA K V72.42 EXAMINATION OR TEST POSITIVE RESULT 08/11/2010 ALEGRE DO, SIRISHA K 787.01 NAUSEA WITH VOMITING 08/11/2010 ALEGRE DO, SIRISHA K V72.42 EXAMINATION OR TEST POSITIVE RESULT 08/11/2010 787.01 NAUSEA WITH VOMITING 08/11/2010 V72.42 EXAMINATION OR TEST POSITIVE RESULT 08/11/2010 787.01 NAUSEA WITH VOMITING 08/11/2010 V72.42 EXAMINATION OR TEST POSITIVE RESULT 08/11/2010 787.01 NAUSEA WITH VOMITING 08/11/2010 V72.42 EXAMINATION OR TEST POSITIVE RESULT 08/11/2010 787.01 NAUSEA WITH VOMITING 08/11/2010 V72.42 EXAMINATION OR TEST POSITIVE RESULT 08/11/2010 787.01 NAUSEA WITH VOMITING 08/11/2010 V72.42 EXAMINATION OR TEST POSITIVE RESULT 08/11/2010 787.01 NAUSEA WITH VOMITING 08/11/2010 V72.42 EXAMINATION OR TEST POSITIVE RESULT 08/11/2010 787.01 NAUSEA WITH VOMITING 08/11/2010 V72.42 EXAMINATION OR TEST POSITIVE RESULT 08/11/2010 RONA ARNDT APRN 787.01 NAUSEA WITH VOMITING 08/11/2010 RONA ARNDT APRN V72.42 EXAMINATION OR TEST POSITIVE RESULT 08/11/2010 MEL ROLLINS DDS 787.01 NAUSEA WITH VOMITING 08/11/2010 MEL ROLLINS DDS V72.42 EXAMINATION OR TEST POSITIVE RESULT 08/11/2010 NICOLE GARCIA APRN 787.01 NAUSEA WITH VOMITING 08/11/2010 NICOLE GARCIA APRN V72.42 EXAMINATION OR TEST POSITIVE RESULT 08/11/2010 FRANKI SANCHEZ APRN 787.01 NAUSEA WITH VOMITING 08/11/2010 FRANKI SANCHEZ APRN V72.42 EXAMINATION OR TEST POSITIVE RESULT 04/02/2011 Ot 285.1 AC POSTHEMORRHAG ANEMIA 04/02/2011 Ot 641.21 JIMMIE SEPAR PLACEN- DELIV 04/02/2011 Ot 648.22 ANEMIA-DELIVERED W P/P 04/02/2011 Ot 655.71 DECR MOVEMNT DEL W/W/O MENTION OF 04/02/2011 Ot 659.71 ABN DEL FET HT RT/RHYTHM,W OR W/O MENTIO 04/02/2011 Ot V06.4 NGR-MXZYYM-RCILP-RUBELLA 04/02/2011 Ot V27.0 DELIVER-SINGLE LIVEBORN 03/30/2012 719.41 PAIN IN JOINT INVOLVING SHOULDER REGION 03/30/2012 719.46 PAIN IN JOINT INVOLVING LOWER LEG 03/30/2012 727.00 SYNOVITIS AND TENOSYNOVITIS UNSPECIFIED 03/30/2012 SIRISHA ALEGRE DO 719.41 PAIN IN JOINT INVOLVING SHOULDER REGION 03/30/2012 SIRISHA ALEGRE DO 719.46 PAIN IN JOINT INVOLVING LOWER LEG 03/30/2012 SIRISHA ALEGRE DO 727.00 SYNOVITIS AND TENOSYNOVITIS UNSPECIFIED 03/30/2012 SIRISHA ALEGRE DO 719.41 PAIN IN JOINT INVOLVING SHOULDER REGION 03/30/2012 SIRISHA ALEGRE DO 719.46 PAIN IN JOINT INVOLVING LOWER LEG 03/30/2012 SIRISHA ALEGRE DO 727.00 SYNOVITIS AND TENOSYNOVITIS UNSPECIFIED 03/30/2012 719.41 PAIN IN JOINT INVOLVING SHOULDER REGION 03/30/2012 719.46 PAIN IN JOINT INVOLVING LOWER LEG 03/30/2012 727.00 SYNOVITIS AND TENOSYNOVITIS UNSPECIFIED 03/30/2012 719.41 PAIN IN JOINT INVOLVING SHOULDER REGION 03/30/2012 719.46 PAIN IN JOINT INVOLVING LOWER LEG 03/30/2012 727.00 SYNOVITIS AND TENOSYNOVITIS UNSPECIFIED 03/30/2012 719.41 PAIN IN JOINT INVOLVING SHOULDER REGION 03/30/2012 719.46 PAIN IN JOINT INVOLVING LOWER LEG 03/30/2012 727.00 SYNOVITIS AND TENOSYNOVITIS UNSPECIFIED 03/30/2012 719.41 PAIN IN JOINT INVOLVING SHOULDER REGION 03/30/2012 719.46 PAIN IN JOINT INVOLVING LOWER LEG 03/30/2012 727.00 SYNOVITIS AND TENOSYNOVITIS UNSPECIFIED 03/30/2012 719.41 PAIN IN JOINT INVOLVING SHOULDER REGION 03/30/2012 719.46 PAIN IN JOINT INVOLVING LOWER LEG 03/30/2012 727.00 SYNOVITIS AND TENOSYNOVITIS UNSPECIFIED 03/30/2012 719.41 PAIN IN JOINT INVOLVING SHOULDER REGION 03/30/2012 719.46 PAIN IN JOINT INVOLVING LOWER LEG 03/30/2012 727.00 SYNOVITIS AND TENOSYNOVITIS UNSPECIFIED 03/30/2012 719.41 PAIN IN JOINT INVOLVING SHOULDER REGION 03/30/2012 719.46 PAIN IN JOINT INVOLVING LOWER LEG 03/30/2012 727.00 SYNOVITIS AND TENOSYNOVITIS UNSPECIFIED 03/30/2012 RONA ARNDT APRN R 719.41 PAIN IN JOINT INVOLVING SHOULDER REGION 03/30/2012 RONA ARNDT APRN R 719.46 PAIN IN JOINT INVOLVING LOWER LEG 03/30/2012 RONA ARNDT APRN R 727.00 SYNOVITIS AND TENOSYNOVITIS UNSPECIFIED 03/30/2012 MEL ROLLINS DDS 719.41 PAIN IN JOINT INVOLVING SHOULDER REGION 03/30/2012 MEL ROLLINS DDS 719.46 PAIN IN JOINT INVOLVING LOWER LEG 03/30/2012 RIA HARDINSMEL 727.00 SYNOVITIS AND TENOSYNOVITIS UNSPECIFIED 03/30/2012 NICOLE GARCIA APRN R 719.41 PAIN IN JOINT INVOLVING SHOULDER REGION 03/30/2012 NICOLE GARCIA APRN R 719.46 PAIN IN JOINT INVOLVING LOWER LEG 03/30/2012 NICOLE GARCIA APRN R 727.00 SYNOVITIS AND TENOSYNOVITIS UNSPECIFIED 03/30/2012 FRANKI SANCHEZ APRN A 719.41 PAIN IN JOINT INVOLVING SHOULDER REGION 03/30/2012 FRANKI SANCHEZ APRN A 719.46 PAIN IN JOINT INVOLVING LOWER LEG 03/30/2012 FRANKI SANCHEZ APRN A 727.00 SYNOVITIS AND TENOSYNOVITIS UNSPECIFIED 08/24/2012 SIRISHA ALEGRE DO V72.31 VASCULAR TECHNOLOGIST EXAM, ROUTINE 08/24/2012 SIRISHA ALEGRE DO V72.31 VASCULAR TECHNOLOGIST EXAM, ROUTINE 08/24/2012 V72.31 VASCULAR TECHNOLOGIST EXAM, ROUTINE 08/24/2012 V72.31 VASCULAR TECHNOLOGIST EXAM, ROUTINE 08/24/2012 V72.31 VASCULAR TECHNOLOGIST EXAM, ROUTINE 08/24/2012 V72.31 VASCULAR TECHNOLOGIST EXAM, ROUTINE 08/24/2012 V72.31 VASCULAR TECHNOLOGIST EXAM, ROUTINE 08/24/2012 V72.31 VASCULAR TECHNOLOGIST EXAM, ROUTINE 08/24/2012 V72.31 VASCULAR TECHNOLOGIST EXAM, ROUTINE 08/24/2012 RONA ARNDT APRN V72.31 VASCULAR TECHNOLOGIST EXAM, ROUTINE 08/24/2012 MEL ROLLINS DDS V72.31 VASCULAR TECHNOLOGIST EXAM, ROUTINE 08/24/2012 NICOLE GARCIA APRN V72.31 VASCULAR TECHNOLOGIST EXAM, ROUTINE 08/24/2012 FRANKI SANCHEZ APRN A V72.31 VASCULAR TECHNOLOGIST EXAM, ROUTINE 09/22/2012 SIRISHA ALEGRE DO V25.12 IUD REMOVAL 09/22/2012 V25.12 IUD REMOVAL 09/22/2012 V25.12 IUD REMOVAL 09/22/2012 V25.12 IUD REMOVAL 09/22/2012 V25.12 IUD REMOVAL 09/22/2012 V25.12 IUD REMOVAL 09/22/2012 V25.12 IUD REMOVAL 09/22/2012 V25.12 IUD REMOVAL 09/22/2012 RONA ARNDT APRN V25.12 IUD REMOVAL 09/22/2012 MEL ROLLINS DDS V25.12 IUD REMOVAL 09/22/2012 NICOLE GARCIA APRN V25.12 IUD REMOVAL 09/22/2012 FRANKI SANCHEZ APRN A V25.12 IUD REMOVAL 02/08/2013 682.0 CELLULITIS, FACE 02/08/2013 682.0 CELLULITIS, FACE 02/08/2013 682.0 CELLULITIS, FACE 02/08/2013 682.0 CELLULITIS, FACE 02/08/2013 682.0 CELLULITIS, FACE 02/08/2013 682.0 CELLULITIS, FACE 02/08/2013 682.0 CELLULITIS, FACE 02/08/2013 RONA ARNDT APRN 682.0 CELLULITIS, FACE 02/08/2013 MEL ROLLINS DDS 682.0 CELLULITIS, FACE 02/08/2013 NICOLE GARCIA APRN 682.0 CELLULITIS, FACE 02/08/2013 FRANKI SANCHEZ APRN A 682.0 CELLULITIS, FACE 02/09/2013 FAHAD LLANES, CHINTAN Fleming Ot 682.0 CELLULITIS OF FACE 02/10/2013 ANDREW LLANES, CHILO Chun Ot V67.9 FOLLOW-UP EXAM NOS 11/10/2013 MANDO HOFFMAN DO Ot 599.0 URIN TRACT INFECTION NOS 11/10/2013 MANDO HOFFMAN DO Ot 646.63 INFECTION-ANTEPARTUM 11/10/2013 MANDO HOFFMAN DO Ot 654.23 PREV DELIVERY, ANTEPARTUM COND 11/12/2013 JESSIE GRISSOM DO Ot 655.73 DECR MOVEMNT ANTEPARTUM CONDITION 12/07/2013 MANDO HOFFMAN DO Ot 275.2 DIS MAGNESIUM METABOLISM 12/07/2013 MANDO HOFFMAN DO Ot 285.1 AC POSTHEMORRHAG ANEMIA 12/07/2013 MANDO HOFFMAN DO Ot 427.9 CARDIAC DYSRHYTHMIA NOS 12/07/2013 MANDO HOFFMAN DO Ot 648.22 ANEMIA-DELIVERED W P/P 12/07/2013 MANDO HOFFMAN DO Ot 648.62 CV DIS NEC-DELIVER W P/P 12/07/2013 MANDO HOFFMAN DO Ot 648.91 OTH CURR COND-DELIVERED 12/07/2013 MANDO HOFFMAN DO Ot 648.92 OTH CURR COND-DEL W P/P 12/07/2013 MANDO HOFFMAN DO Ot 654.21 PREV DELIVRY W/ OR W/O MENT ANT 12/07/2013 MANDO HOFFMAN DO Ot 663.31 CORD ENTANGLE NEC-DELIV 12/07/2013 MANDO HOFFMAN DO Ot V02.51 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 B 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 CARRIER/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 12/07/2013 MANDO HOFFMAN DO Ot V06.1 [id number]-PUZOXPYAE, COMBINED [ 12/07/2013 MANDO HOFFMAN DO Ot V27.0 DELIVER-SINGLE LIVEBORN 12/11/2013 FAHAD LLANES, CHINTAN Fleming Ot 427.89 CARDIAC DYSRHYTHMIAS NEC 12/11/2013 FAHAD LLANES, CHINTAN Fleming Ot 786.59 CHEST PAIN NEC 12/15/2013 MANDO HOFFMAN DO Ot 285.1 AC POSTHEMORRHAG ANEMIA 12/15/2013 MANDO HOFFMAN DO Ot 599.0 URIN TRACT INFECTION NOS 12/15/2013 MANDO HOFFMAN DO Ot 646.64 INFECTION- 12/15/2013 MANDO HOFFMAN DO Ot 648.24 ANEMIA- 12/15/2013 MANDO HOFFMAN DO Ot 666.14 POSTPART HEM NEC-POSTPAR 12/16/2013 MANDO HOFFMAN DO Ot 285.1 AC POSTHEMORRHAG ANEMIA 12/16/2013 MANDO HOFFMAN DO Ot 648.24 ANEMIA- 12/16/2013 MANDO HOFFMAN DO Ot 666.14 POSTPART HEM NEC-POSTPAR 12/16/2013 MANDO HOFFMAN DO Ot V45.89 POSTSURGICAL STATES NEC 01/05/2014 OLIVIA ARNDT APRNIA R 462 ACUTE PHARYNGITIS 01/05/2014 BERENICE ARNDT APRNRICIA R 786.2 COUGH 01/05/2014 ROLLINS DDS, MEL 462 ACUTE PHARYNGITIS 01/05/2014 ROLLINS DDS, MEL 786.2 COUGH 01/05/2014 RADHA SIMMONS, NICOLE R 462 ACUTE PHARYNGITIS 01/05/2014 RADHA SIMMONS, NICOLE R 786.2 COUGH 01/05/2014 FRANKI SANCHEZ APRN A 462 ACUTE PHARYNGITIS 01/05/2014 CIRILO SANCHEZ APRNIDI A 786.2 COUGH 05/29/2014 CIRILO SANCHEZ APRNIDI A 610.1 DIFFUSE CYSTIC MASTOPATHY 05/29/2014 DANIEL SIMMONS FRANKI A 611.72 LUMP OR MASS IN BREAST 09/23/2016 JESSIE GRISSOM DO Ot 655.73 DECR MOVEMNT ANTEPARTUM CONDITION 09/23/2016 FRANKI SANCHEZ A DIGITAL ASSISTANT Ot 611.72 LUMP OR MASS IN BREAST 09/23/2016 FRANKI SANCHEZ A DIGITAL ASSISTANT Ot V16.3 FAMILY HX-BREAST MALIG 10/12/2016 JESSIE GRISSOM DO C Ot 655.73 DECR MOVEMNT ANTEPARTUM CONDITION 10/12/2016 FRANKI SANCHEZ A DIGITAL ASSISTANT Ot 611.72 LUMP OR MASS IN BREAST 10/12/2016 FRANKI SANCHEZ A DIGITAL ASSISTANT Ot V16.3 FAMILY HX-BREAST MALIG 10/12/2016 TERESA CASTANON Ot N63 UNSPECIFIED LUMP IN BREAST 10/13/2016 CHAVO LLANES, EVAN R Ot N93.9 ABNORMAL UTERINE AND VAGINAL BLEEDING, U 11/30/2016 JESSIE GRISSOM DO C Ot 655.73 DECR MOVEMNT ANTEPARTUM CONDITION 11/30/2016 FRANKI SANCHEZ DIGITAL ASSISTANT Ot 611.72 LUMP OR MASS IN BREAST 11/30/2016 FRANKI SANCHEZ DIGITAL ASSISTANT Ot V16.3 FAMILY HX-BREAST MALIG 11/30/[address] MAGISTRATE Ot N63 UNSPECIFIED LUMP IN BREAST 11/30/2016 EVAN TONY MD Ot N93.9 ABNORMAL UTERINE AND VAGINAL BLEEDING, U 12/28/2016 JESSIE GRISSOM DO Ot 655.73 DECR MOVEMNT ANTEPARTUM CONDITION 12/28/2016 FRANKI SANCHEZ DIGITAL ASSISTANT Ot 611.72 LUMP OR MASS IN BREAST 12/28/2016 FRANKI SANCHEZ DIGITAL ASSISTANT Ot V16.3 FAMILY HX-BREAST MALIG 12/28/[address] MAGISTRATE Ot N63 UNSPECIFIED LUMP IN BREAST 12/28/2016 EVAN TONY MD Ot N93.9 ABNORMAL UTERINE AND VAGINAL BLEEDING, U 12/28/2016 FENECH DO, MANDO S Ot N93.9 ABNORMAL UTERINE AND VAGINAL BLEEDING, U 12/28/2016 FENECH DO, MANDO S Ot Z01.812 ENCOUNTER FOR PREPROCEDURAL LABORATORY E 12/28/2016 FENECH DO, MANDO S Ot Z11.2 ENCOUNTER FOR SCREENING FOR OTHER BACTER 12/29/2016 FENECH DO, MANDO S Ot N93.9 ABNORMAL UTERINE AND VAGINAL BLEEDING, U 12/29/2016 FENECH DO, MANDO S Ot Z01.812 ENCOUNTER FOR PREPROCEDURAL LABORATORY E 12/29/2016 FENECH DO, MANDO S Ot Z11.2 ENCOUNTER FOR SCREENING FOR OTHER BACTER 01/01/2017 EVAN TONY MD Ot N93.9 ABNORMAL UTERINE AND VAGINAL BLEEDING, U 01/07/2017 FENECH DO, MANDO S Ot N83.8 OTH NONINFLAMMATORY DISORD OF OVARY, FAL 01/07/2017 GEOVANNAECH DO MANDO S Ot N94.6 DYSMENORRHEA, UNSPECIFIED 01/14/2017 FENECH DO MANDO S Ot N83.8 OTH NONINFLAMMATORY DISORD OF OVARY, FAL 01/14/2017 FENECH DO, MANDO S Ot N94.6 DYSMENORRHEA, UNSPECIFIED 01/14/2017 DESTINI JACQUE BRONSON K Ot H10.31 UNSPECIFIED ACUTE CONJUNCTIVITIS, RIGHT 01/14/2017 DESTINI DO, JACQUE K Ot J02.9 ACUTE PHARYNGITIS, UNSPECIFIED 01/14/2017 DESTINI DOKATIEA K Ot Z90.710 ACQUIRED ABSENCE OF BOTH CERVIX AND UTER 01/14/2017 DESTINI DOKATIEA K Ot Z98.890 OTHER SPECIFIED POSTPROCEDURAL STATES 01/15/2017 DESTINI DO, JACQUE K Ot H10.31 UNSPECIFIED ACUTE CONJUNCTIVITIS, RIGHT 01/15/2017 DESTINI DOJACQUE K Ot J02.9 ACUTE PHARYNGITIS, UNSPECIFIED 01/15/2017 DESTINI DO, JACQUE K Ot Z90.710 ACQUIRED ABSENCE OF BOTH CERVIX AND UTER 01/15/2017 DESTINI DO, JACQUE K Ot Z98.890 OTHER SPECIFIED POSTPROCEDURAL STATES 01/16/2017 DESTINI , JACQUE K Ot H10.31 UNSPECIFIED ACUTE CONJUNCTIVITIS, RIGHT 01/16/2017 DESTINI DO, JACQUE K Ot J02.9 ACUTE PHARYNGITIS, UNSPECIFIED 01/16/2017 DESTINI , JACQUE K Ot Z90.710 ACQUIRED ABSENCE OF BOTH CERVIX AND UTER 01/16/2017 DESTINI DO, JACQUE K Ot Z98.890 OTHER SPECIFIED POSTPROCEDURAL STATES 01/20/2017 DESTINI , JACQUE K Ot H10.31 UNSPECIFIED ACUTE CONJUNCTIVITIS, RIGHT 01/20/2017 DESTINI JACQUE BRONSON Ot J02.9 ACUTE PHARYNGITIS, UNSPECIFIED 01/20/2017 DESTINI KATIE BRONSONA K Ot Z90.710 ACQUIRED ABSENCE OF BOTH CERVIX AND UTER 01/20/2017 DESTINI , JACQUE K Ot Z98.890 OTHER SPECIFIED POSTPROCEDURAL STATES 02/03/2017 CHAVO LLANES, EVAN Chun Ot N93.9 ABNORMAL UTERINE AND VAGINAL BLEEDING, U 01/24/2019 JESSIE GRISSOM DO Carli Ot 655.73 DECR MOVEMNT ANTEPARTUM CONDITION 01/24/2019 FRANKI SANCHEZ DIGITAL ASSISTANT Ot 611.72 LUMP OR MASS IN BREAST 01/24/2019 FRANKI SANCHEZ DIGITAL ASSISTANT Ot V16.3 FAMILY HX-BREAST MALIG 01/24/[address] MAGISTRATE Ot N63 UNSPECIFIED LUMP IN BREAST 01/24/2019 CHAVO LLANES, EVAN Chun Ot N93.9 ABNORMAL UTERINE AND VAGINAL BLEEDING, U 01/27/2019 ADRIANA MONTANA MD, Ot R10.11 RIGHT UPPER QUADRANT PAIN 02/02/2019 ADRIANA MONTANA MD, Ot Z01.818 ENCOUNTER FOR OTHER PREPROCEDURAL EXAMIN 02/03/2019 ADRIANA MONTANA MD, Ot Z01.818 ENCOUNTER FOR OTHER PREPROCEDURAL EXAMIN Procedures Code Description Performed By Performed On 73.4 MEDICAL INDUCTION LABOR 03/30/2011 74.1 LOW CERVICAL 03/30/2011 86499 CULTURE UROGENITAL 08/24/2012 44399 PAP SMEAR 08/24/2012 Q0091 PAP SMEAR OBTAIN SMEAR 08/24/2012 41554 IUD REMOVAL 09/22/2012 A6209 FOAM DRSG <=16 SQ IN W/O BALANCE WHEEL SCREW HOLE DRILLER 02/10/2013 10441 DERMATOLOGICAL PROCEDURE 02/11/2013 60269 DERMATOLOGICAL PROCEDURE 02/17/2013 74.1 LOW CERVICAL 12/05/2013 99.77 APPL/ADMIN OF AN ADHESION BARRIER SUBSTA 12/05/2013 76135 STREP A (IN-HOUSE) 01/05/2014 67522 MAMMOGRAM DX, RYLEE 06/01/2014 Results Test Result Range Complete blood count (CBC) with automated white blood cell (WBC) differential - 12/28/16 11:20 Blood leukocytes automated count (number/volume) 9.8 10*3/uL 4.3-11.0 Blood erythrocytes automated count (number/volume) 4.63 10*6/uL 4.35-5.85 Venous blood hemoglobin measurement (mass/volume) 11.7 g/dL 11.5-16.0 Blood hematocrit (volume fraction) 37 % 35-52 Automated erythrocyte mean corpuscular volume 80 [foz_us] 80-99 Automated erythrocyte mean corpuscular hemoglobin (mass per erythrocyte) 25 pg 25-34 Automated erythrocyte mean corpuscular hemoglobin concentration measurement (mass/volume) 32 g/dL 32-36 Automated erythrocyte distribution width ratio 14.7 % 10.0- 14.5 Automated blood platelet count (count/volume) 201 10*3/uL 130-400 Automated blood platelet mean volume measurement 12.3 [foz_us] 7.4-10.4 Automated blood neutrophils/100 leukocytes 60 % 42-75 Automated blood lymphocytes/100 leukocytes 28 % 12-44 Blood monocytes/100 leukocytes 8 % 0-12 Automated blood eosinophils/100 leukocytes 4 % 0-10 Automated blood basophils/100 leukocytes 0 % 0-10 Blood neutrophils automated count (number/volume) 5.8 10*3 1.8-7.8 Blood lymphocytes automated count (number/volume) 2.8 10*3 1.0-4.0 Blood monocytes automated count (number/volume) 0.8 10*3 0.0- 1.0 Automated eosinophil count 0.4 10*3/uL 0.0-0.3 Automated blood basophil count (count/volume) 0.0 10*3/uL 0.0-0.1 Blood type T Indirect antibody screen panel - 12/28/16 11:20 ABO+Rh group OP NRG Blood group antibody screen NEGATIVE NRG Methicillin resistant Staphylococcus aureus (MRSA) screening culture - 12/28/16 11:20 Methicillin resistant Staphylococcus aureus (MRSA) screening culture NEG NRG Urine beta human chorionic gonadotropin (hCG) measurement - 01/07/17 08:10 Urine beta human chorionic gonadotropin (hCG) measurement NEGATIVE NEGATIVE Blood type T Indirect antibody screen panel - 01/07/17 08:52 ABO+Rh group OP NRG Transfusion band number [id number] NRG Blood group antibody screen NEGATIVE NRG Complete blood count (CBC) with automated white blood cell (WBC) differential - 01/14/17 18:55 Blood leukocytes automated count (number/volume) 11.8 10*3/uL 4.3-11.0 Blood erythrocytes automated count (number/volume) 4.73 10*6/uL 4.35-5.85 Venous blood hemoglobin measurement (mass/volume) 11.7 g/dL 11.5-16.0 Blood hematocrit (volume fraction) 37 % 35-52 Automated erythrocyte mean corpuscular volume 79 [foz_us] 80-99 Automated erythrocyte mean corpuscular hemoglobin (mass per erythrocyte) 25 pg 25-34 Automated erythrocyte mean corpuscular hemoglobin concentration measurement (mass/volume) 31 g/dL 32-36 Automated erythrocyte distribution width ratio 15.0 % 10.0- 14.5 Automated blood platelet count (count/volume) 185 10*3/uL 130-400 Automated blood platelet mean volume measurement 12.5 [foz_us] 7.4-10.4 Automated blood neutrophils/100 leukocytes 80 % 42-75 Automated blood lymphocytes/100 leukocytes 8 % 12-44 Blood monocytes/100 leukocytes 10 % 0-12 Automated blood eosinophils/100 leukocytes 1 % 0-10 Automated blood basophils/100 leukocytes 0 % 0-10 Blood neutrophils automated count (number/volume) 9.5 10*3 1.8-7.8 Blood lymphocytes automated count (number/volume) 1.0 10*3 1.0-4.0 Blood monocytes automated count (number/volume) 1.2 10*3 0.0- 1.0 Automated eosinophil count 0.2 10*3/uL 0.0-0.3 Automated blood basophil count (count/volume) 0.0 10*3/uL 0.0-0.1 Bacterial blood culture - 01/14/17 18:55 FREE TEXT EXTERNAL PRESUMPTIVE ID; SEE COMMENTS NRG QUANTITY OF GROWTH Isolated NRG Bacterial blood culture [id number] NRG Bacterial throat culture - 01/14/17 19:10 Bacterial throat culture NBS NRG Bacterial blood culture - 01/14/17 19:14 Bacterial blood culture NG NRG Complete urinalysis with reflex to culture - 01/14/17 21:00 Urine color determination YELLOW NRG Urine clarity determination CLEAR NRG Urine pH measurement by test strip 7 5-9 Specific gravity of urine by test strip 1.015 1.016-1.022 Urine protein assay by test strip, semi-quantitative NEGATIVE NEGATIVE Urine glucose detection by automated test strip NEGATIVE NEGATIVE Erythrocytes detection in urine sediment by light microscopy NEGATIVE NEGATIVE Urine ketones detection by automated test strip NEGATIVE NEGATIVE Urine nitrite detection by test strip NEGATIVE NEGATIVE Urine total bilirubin detection by test strip NEGATIVE NEGATIVE Urine urobilinogen measurement by automated test strip (mass/volume) NORMAL NORMAL Urine leukocyte esterase detection by dipstick 1+ NEGATIVE Automated urine sediment erythrocyte count by microscopy (number/high power field) NONE NRG Automated urine sediment leukocyte count by microscopy (number/high power field) [HPF] NRG Bacteria detection in urine sediment by light microscopy FEW NRG Squamous epithelial cells detection in urine sediment by light microscopy 25-50 NRG Crystals detection in urine sediment by light microscopy NONE NRG Casts detection in urine sediment by light microscopy NONE NRG Mucus detection in urine sediment by light microscopy NEGATIVE NRG Complete urinalysis with reflex to culture NO NRG CBC - 12/28/18 13:35 WHITE BLOOD CELL COUNT 12.7 Thousand/uL 3.8-10.8 RED BLOOD CELL COUNT 4.69 Million/uL 3.80-5.10 HEMOGLOBIN 14.2 g/dL 11.7-15.5 HEMATOCRIT 41.1 % 35.0-45.0 MCV 87.6 fL 80.0-100.0 MCH 30.3 pg 27.0-33.0 MCHC 34.5 g/dL 32.0-36.0 RDW 13.5 % 11.0-15.0 PLATELET COUNT 230 Thousand/uL 140-400 MPV 12.9 fL 7.5-12.5 ABSOLUTE NEUTROPHILS 7836 cells/uL [id number] ABSOLUTE LYMPHOCYTES 3454 cells/uL 850-3900 ABSOLUTE MONOCYTES 775 cells/uL 200-950 ABSOLUTE EOSINOPHILS 533 cells/uL 15-500 ABSOLUTE BASOPHILS 102 cells/uL 0-200 NEUTROPHILS 61.7 % NRG LYMPHOCYTES 27.2 % NRG MONOCYTES 6.1 % NRG EOSINOPHILS 4.2 % NRG BASOPHILS 0.8 % NRG LIPASE - 12/28/18 13:35 LIPASE 56 U/L 7-60 TSH w/ FREE T4 - 01/25/19 13:30 TSH 1.05 mIU/L NRG T4, FREE 1.0 ng/dL 0.8-1.8 CBC w/MANUAL DIFF - 01/25/19 13:30 WHITE BLOOD CELL COUNT 11.9 Thousand/uL 3.8-10.8 RED BLOOD CELL COUNT 5.03 Million/uL 3.80-5.10 HEMOGLOBIN 14.8 g/dL 11.7-15.5 HEMATOCRIT 44.2 % 35.0-45.0 MCV 87.9 fL 80.0-100.0 MCH 29.4 pg 27.0-33.0 MCHC 33.5 g/dL 32.0-36.0 RDW 13.5 % 11.0-15.0 PLATELET COUNT 248 Thousand/uL 140-400 MPV 12.5 fL 7.5-12.5 ABSOLUTE NEUTROPHILS 7854 cells/uL 5795-0084 ABSOLUTE MONOCYTES 583 cells/uL 200-950 ABSOLUTE EOSINOPHILS 119 cells/uL 15-500 ABSOLUTE BASOPHILS 0 cells/uL 0-200 NEUTROPHILS 66.0 % NRG LYMPHOCYTES 26.2 % NRG MONOCYTES 4.9 % NRG EOSINOPHILS 1.0 % NRG BASOPHILS 0 % NRG ABSOLUTE BAND NEUTROPHILS 226 cells/uL 0-750 ABSOLUTE LYMPHOCYTES 3118 cells/uL 850-3900 BAND NEUTROPHILS 1.9 % NRG PLATELET ESTIMATION ADEQUATE ADEQUATE Encounters ACCT No. Visit Date/Time Discharge Status Pt. Type Provider Facility Loc./Unit Complaint [id number] 05/29/2014 11:18:00 05/29/2014 23:59:59 CLS Outpatient DANIEL BROOKSNFRANKI Rebeca [id number] 05/08/2014 16:11:00 05/08/2014 23:59:59 CLS Outpatient RADHA DIGITAL ASSISTANTNICOLE Lay [id number] 01/25/2014 13:54:00 01/25/2014 23:59:59 CLS Outpatient MEL ROLLINS DDS [id number] 01/05/2014 11:45:00 01/05/2014 23:59:59 CLS Outpatient YRIS SIMMONSBERENICERONA R [id number] 09/22/2012 09:23:00 09/22/2012 23:59:59 [place] [id number] 08/24/2012 08:54:00 08/24/2012 23:59:59 CLS Outpatient [id number] 08/24/2012 08:54:00 08/24/2012 23:59:59 CLS Outpatient SIRISHA ALEGRE DO [id number] 02/20/2013 10:48:00 Document Registration [id number] 02/17/2013 11:00:00 Document Registration [id number] 02/14/2013 17:21:00 Document Registration [id number] 02/11/2013 08:50:00 Document Registration [id number] 02/10/2013 14:14:00 Document Registration [id number] 02/09/2013 15:16:00 Document Registration [id number] 02/08/2013 17:29:00 Document Registration [id number] 01/25/2019 13:00:00 01/25/2019 23:59:59 CLS [facility] [id number] 01/25/2019 13:00:00 Document Registration [id number] 12/28/2018 13:00:00 Document Registration [id number] 02/02/2019 05:34:00 02/02/2019 15:17:00 DIS Outpatient KIDADRIANA Modi MD [facility] PREOP LAPAROSCOPIC CHOLECYSTECTOMY [id number] 01/26/2019 11:19:00 01/26/2019 23:59:59 CLS Outpatient ADRIANA MONTANA MD [facility] CARD RUQ PAIN [id number] 01/14/2017 18:14:00 01/14/2017 22:04:00 DIS Emergency DESTINI JACQUE BRONSON [facility] ER FEVER, CHILLS [id number] 01/07/2017 08:13:00 01/07/2017 21:50:00 DIS Outpatient MANDO HOFFMAN DO [facility] SDC AUB,ENLARGED UTERUS, ADENOMIOSIS [id number] 12/28/2016 10:46:00 12/28/2016 13:58:00 DIS Outpatient MANDO HOFFMAN DO [facility] PREOP AUB,ENLARGED UTERUS, ADENOMIOSIS [id number] 10/12/2016 14:14:00 10/12/2016 23:59:59 CLS Outpatient EVAN TONY MD [facility] RAD AUB [id number] 09/23/2016 15:02:00 09/23/2016 23:59:59 CLS Outpatient TERESA CASTANON [facility] RAD BREAST LUMP IN UPPER OUTER QUADRANT [id number] 06/11/2014 08:33:00 06/11/2014 23:59:59 CLS Outpatient FRANKI SANCHEZ APRN [facility] RAD BREAST LUMP [id number] 12/16/2013 05:53:00 12/16/2013 18:00:00 DIS Inpatient MANDO HOFFMAN DO [facility] WS HEMORRHAGE [id number] 12/14/2013 15:35:00 12/15/2013 18:35:00 DIS Inpatient MANDO HOFFMAN DO [facility] WS POST HEMMORHAGE,RETAINED PRODUCTS [id number] 12/10/2013 20:58:00 12/11/2013 01:21:00 DIS Emergency FAHAD LLANES, CHINTAN Fleming [facility] ER CP [id number] 12/05/2013 17:00:00 12/07/2013 18:30:00 DIS Inpatient MANDO HOFFMAN DO [facility] WS DELIVERY [id number] 11/12/2013 18:20:00 11/12/2013 23:59:59 CLS Outpatient GRISSOMJESSIE Salamanca DO [facility] WSo LOWER ABD PAIN;NO MOVEMENT [id number] 11/12/2013 18:31:00 11/12/2013 20:20:00 DIS Outpatient JESSIE GRISSOM DO [facility] WS LOWER ABD CRAMPS;NO MOVEMENT [id number] 11/09/2013 21:35:00 11/10/2013 01:20:00 DIS Out[facility] [id number] 02/10/2013 12:51:00 02/10/2013 14:42:00 DIS Emergency ANDREW LLANES, CHILO R [facility] ER WOUND CHECK [id number] 02/09/2013 22:37:00 02/09/2013 23:53:00 DIS Emergency FAHAD LLANES, CHINTAN Fleming [facility] ER FACIAL SWELLING [id number] 02/09/2019 10:00:00 PEN Preadmit ADRIANA MONTANA MD [facility] BILIARY DYSKINESIA [id number] 11/12/2013 18:17:00 ACT Inpatient [id number] 03/30/2011 12:15:00 Document Registration
[2019-02-09] MEDS ORDERED: CLINDAMYCIN 600 MG/50 ML IVPB 50 ML IV ONE (09:00)
[2019-02-09] MEDS ORDERED: CATHETER FLUSH 10 ML SYR IV PRN (09:30)
[2019-02-09 09:39] LABS: BASOPHILS # (AUTO) 0.1 10^3/uL (0.0-0.1); BASOPHILS % (AUTO) 0 % (0-10); EOSINOPHILS # (AUTO) 0.5 10^3/uL (0.0-0.3); EOSINOPHILS % (AUTO) 4 % (0-10); HEMATOCRIT 40 % (35-52); HEMOGLOBIN 13.6 G/DL (11.5-16.0); LYMPHOCYTES # (AUTO) 2.8 X 10^3 (1.0-4.0); LYMPHOCYTES % (AUTO) 24 % (12-44); MEAN CORPUSCULAR HEMOGLOBIN 29 PG (25-34); MEAN CORPUSCULAR HGB CONC 34 G/DL (32-36); MEAN CORPUSCULAR VOLUME 86 FL (80-99); MONOCYTES # (AUTO) 1.1 X 10^3 (0.0-1.0); MONOCYTES % (AUTO) 9 % (0-12); NEUTROPHILS # (AUTO) 7.4 X 10^3 (1.8-7.8); NEUTROPHILS % (AUTO) 63 % (42-75); PLATELET COUNT 190 10^3/uL (130-400); WHITE BLOOD COUNT 11.8 10^3/uL (4.3-11.0)
[2019-02-09] MEDS: LACTATED RINGERS 1,000 ML IV PRN ×2 (09:48→12:52)
--- NOTE | 2019-02-09 10:09 | Progress Note-Pre Operative ---
Pre-Operative Progress Note H&P Reviewed The H&P was reviewed, patient examined and no changes noted. Date Seen by Provider: February 09, 2019 Time Seen by Provider: 10:00 Date H&P Reviewed: February 09, 2019 Time H&P Reviewed: 10:00 Pre-Operative Diagnosis: sx bryan dyskinesia and ventral inc hernia ADRIANA MONTANA MD February 09, 2019 10:09
[2019-02-09] MEDS ORDERED: HYDR-34 PO (10:12)
--- NOTE | 2019-02-09 10:13 | Discharge Inst-Surgical ---
D/C Lap Instructions-NAN New, Converted, or Re-Newed RX: RX on Chart Follow Up Appt in 2 weeks Activity as tolerated No driving for 24 hours No driving while on pain medications Incentive Spirometry use every 2 hours while awake Regular Diet Symptoms to Report: Fever over 101 degree F, Nausea/Vomiting Infection Signs and Symptoms to report: Increased redness, Foul odor of wound, Increased drainage Bathing instructions: May shower Operative Area Clean/Dry; Keep incision clean/dry If any problems/questions: Contact your physician or go to Emergency Room ADRIANA MONTANA MD February 09, 2019 10:13
[2019-02-09] MEDS ORDERED: MIDAZOLAM 2 MG/2 ML (VERSED) VIAL ONE ×2 (10:15→10:26)
[2019-02-09] MEDS ORDERED: oxyCODONE/APAP 5/325MG (PERCOCET 5) TABLET PO PRN (10:15)
[2019-02-09] MEDS ORDERED: ONDANSETRON 4 MG/2 ML (SDV) Z0FRAN IVP PRN ×2 (10:15→12:15)
[2019-02-09] MEDS ORDERED: morphine INJ 10 MG/ML 1ML (SYR OR VIAL) IVP PRN (10:15)
[2019-02-09] MEDS ORDERED: ACETAMINOPHEN 325 MG TABLET PO PRN (10:15)
[2019-02-09] MEDS ORDERED: FAMOTIDINE 20MG/2ML IV (PEPCID) ONE (10:16)
[2019-02-09] MEDS ORDERED: BUP/EPI 0.5% 1:200,000 (SENSORCAINE) 30 ML VIAL ONE (10:20)
[2019-02-09] MEDS ORDERED: ONDANSETRON 4 MG/2 ML (SDV) Z0FRAN ONE (10:25)
[2019-02-09] MEDS ORDERED: proPOfol 200 MG/20 ML (DIPRIVAN) VIAL IV ONE (10:25)
[2019-02-09] MEDS ORDERED: LIDOCAINE PF 2% 5 ML (XYLOCAINE) VIAL ONE (10:25)
[2019-02-09] MEDS ORDERED: ROCURONIUM 10 MG/ML 5 ML SYRINGE IV ONE (10:25)
[2019-02-09] MEDS ORDERED: fentaNYL INJECTION 100 MCG/2 ML AMP ONE (10:26)
[2019-02-09] MEDS ORDERED: SEVOFLURANE (ULTANE) 15 ML INHAL SOLN ONE ×4 (10:28→11:35)
[2019-02-09] MEDS ORDERED: MIDAZOLAM 2 MG/2 ML (VERSED) VIAL IV ONE (10:30)
[2019-02-09] MEDS ORDERED: FAMOTIDINE 20MG/2ML IV (PEPCID) IV ONE (10:30)
[2019-02-09] MEDS ORDERED: NEOSTIGMINE 1 MG/ML 5 ML SYRINGE ONE (11:34)
[2019-02-09] MEDS ORDERED: GLYCOPYRROLATE 0.2 MG/ML (ROBINUL) 2 ML VIAL ONE (11:34)
--- NOTE | 2019-02-09 11:53 | Progress Note-Post Operative ---
Post-Operative Progess Note Surgeon (s)/Varnisher (s) Surgeon Dr. Yoseph Bonilla M.D. Varnisher: Alberto Castillo SPECIAL EDUCATION PROFESSOR Pre-Operative Diagnosis sx bryan dyskinesia and ventral inc hernia Post-Operative Diagnosis Chronic Calculous cholecystitis and ventral abdominal incisional hernia Procedure & Operative Findings Date of Procedure 02/09/19 Procedure Performed/Findings Laparoscopic Cholecystectomy and open ventral abdominal incisional hernia repair with mesh Anesthesia Type GET Estimated Blood Loss Estimated blood loss (mL): minimal Specimens/Packing Specimens Removed Gallbladder ALBERTO CASTILLO SPECIAL EDUCATION PROFESSOR February 09, 2019 11:53
[2019-02-09] MEDS: fentaNYL INJECTION 100 MCG/2 ML AMP IVP ONE (12:13)
[2019-02-09] MEDS ORDERED: MEPERIDINE (DEMEROL) INJ 50 MG/ML IVP ONE (12:15)
[2019-02-09] MEDS ORDERED: PROMETHAZINE INJ 25 MG/ML (PHENERGAN) AMP IVP ONE (12:15)
--- NOTE | 2019-02-09 15:13 | OPERATIVE REPORT ---
DATE OF SERVICE: 02/09/2019 ATTENDING PRIMARY ASSISTANT DEAN OF STUDENTS: Merari Barrett APRN in [place], [place]. PREOPERATIVE DIAGNOSIS: Symptomatic biliary dyskinesia, symptomatic ventral abdominal incisional hernia. POSTOPERATIVE DIAGNOSIS: Chronic calculous cholecystitis, small preperitoneal incisional hernia in the umbilicus. PROCEDURE: Laparoscopic cholecystectomy and incisional hernia repair with mesh. SURGEON: Adriana Montana MD SHIP PAINTER HELPER: Alberto Vides APRN. ANESTHESIA: General endotracheal. ESTIMATED BLOOD LOSS: Minimal. FINDINGS: There is slightly distended gallbladder, no gallbladder wall thickening. Ex vivo, there were small gallstones identified. There was a small preperitoneal incisional hernia in the umbilical region. DISPOSITION: The patient tolerated the procedure well. INDICATIONS: The patient is a 33-year-old female referred over to us for two month history of abdominal pain. She thought that she did have gastroesophageal reflux disease and was treated with Prilosec initially and this was ineffective and she was switched to Protonix; however, she reports that this did not help. She also had reported some pain in the supraumbilical region. She has had 2 previous laparoscopic surgeries in this region before. Upon examination in the office, she was found to have a small incisional hernia in the umbilical region. She did have a CT scan as well as ultrasound performed, which did not show any stones; however, she did have a HIDA scan performed, which did show a low ejection fraction as well as symptoms upon administration of Kinevac analogue consistent with a biliary dyskinesia. DESCRIPTION OF PROCEDURE: The patient was brought to the operating room, laid supine on the table. After adequate IV pain and sedative medications and general endotracheal intubation, the abdomen was prepped and draped in a standard surgical fashion. A 0.5% Marcaine with epinephrine was used to anesthetize the overlying skin in the left upper abdominal quadrant. A small transverse skin incision was made using a 15 blade. An 0 silk suture was applied to the medial aspect of the incision for retraction and a Veress needle inserted with a low opening pressure of 0 mmHg and the abdomen was then insufflated to 15 mmHg pressure. The Veress needle removed and a 5 mm Xcel trocar placed followed by a 5 mm 45-degree angle laparoscope visualizing the peritoneal cavity. A 4-quadrant abdominal exploration was performed. There was a small defect in the umbilical region with what appeared to be a reducible preperitoneal fat consistent with a small ventral abdominal incisional preperitoneal hernia. There was slight gallbladder wall distention. There was no gallbladder wall inflammation. Under direct visualization, we then proceed to place a 10 mm port through the umbilical defect after the skin and peritoneal lining were anesthetized using 0.5% Marcaine with epinephrine and a transverse skin incision was made using a 15 blade. In a similar manner, a right upper abdominal quadrant 5 mm port was placed. The patient was then placed in reverse Trendelenburg position as well as plane right side up, left side down. The gallbladder was then retracted anteriorly and superiorly and hepatoduodenal ligament was then opened using blunt dissection as well as electrocautery on the hook instrument. The entire critical view of safety was identified including the triangle of Calot with the cystic duct and artery as the only two structures going into the gallbladder as well as the cystic plate behind the proximal gallbladder. A timeout was then taken. The cystic duct and artery were then clipped proximally, distally and cut with EndoShears. The gallbladder was then dissected off of the liver bed using cautery on hook instrument with visualization of good hemostasis as well as no leaking ducts of Luschka. The gallbladder was removed through the 10 mm port site using an EndoCatch bag. The gallbladder was examined on the back table and there were small gallstones identified. We then proceeded with repair of the small ventral abdominal incisional hernia. A 6.4 cm round coated polypropylene mesh was then placed into the defect. We then proceeded with transfascial sutures concentrically around the mesh using 0 Prolene sutures. Good hemostasis was observed. Subcutaneous tissue was then reapproximated using 3-0 Vicryl interrupted suture. The abdomen was desufflated and the remaining ports removed. All skin incisions were closed using 4-0 Monocryl running subcuticular sutures. Wounds were then cleaned and covered with Dermabond. The patient tolerated the procedure well. We will start IV normal pain medication as well as a clear liquid diet. Once she is tolerating clears, has good pain control with oral pain medications, ambulating well, we will discharge her home. She will be instructed to do no heavy lifting or exertion for the next two weeks. Job ID: [id number] DocumentID: [id number] Dictated Date: 02/09/2019 11:47:25 Stitch Separator Date: 02/09/2019 15:11:03 Dictated By: ADRIANA MONTANA MD
--- NOTE | 2019-02-09 16:26 | Anesthesia-General Post-Op ---
General Patient Condition Mental Status/LOC: Same as Preop Cardiovascular: Satisfactory Nausea/Vomiting: Absent Respiratory: Satisfactory Pain: Controlled Complications: Absent Post Op Complications Complications None Follow Up Care/Instructions Patient Instructions None needed. Anesthesia/Patient Condition Patient Condition Patient was seen after the procedure and she was doing well, no complaints, stable vital signs, no apparent adverse anesthesia problems. ADA GIBBS DO February 09, 2019 16:26
== END 2019-02-09 15:10 | disposition home or self-care (01) ==
LOC: SDC 08:41
PROVIDERS: ATTEND Surgery
DX: K81.1 Chronic cholecystitis (principal); K82.8 Other specified diseases of gallbladder; K43.2 Incisional hernia without obstruction or gangrene; K21.9 Gastro-esophageal reflux disease without esophagitis; F17.210 Nicotine dependence, cigarettes, uncomplicated; E66.9 Obesity, unspecified; Z68.31 Body mass index [BMI] 31.0-31.9, adult
CPT/HCPCS: 36415; 85025; 87081

== ENCOUNTER 2021-04-26 21:03 | Emergency (ER) | payer MEDICAID ==
[~2021-04-26] VITALS: Ht 167.7 cm; Wt 97.0 kg
[~2021-04-26 21:03] MED LIST changes: -PANT40TA3 PO; +PANT40TA52 PO
[2021-04-26] MEDS ORDERED: KETOROLAC 60 MG/2 ML VIAL IM ONE (21:15)
[2021-04-26] MEDS ORDERED: PROCHLORPERAZINE 10 MG/2ML INJ (COMPAZINE) IM ONE (21:15)
[2021-04-26] MEDS ORDERED: diphenhydrAMINE 50 MG/ML INJ (BENADRYL) IM ONE (21:15)
--- NOTE | 2021-04-26 21:22 | ED Headache ---
General Chief Complaint: Head/Cervical Problems Stated Complaint: HEADACHE, VOMITING Source: patient Exam Limitations: no limitations History of Present Illness Date Seen by Provider: Apr 26, 2021 Time Seen by Provider: 21:20 Initial Comments To ER with headache vomiting. History of migraines and this is similar. Typically she just takes Tylenol for it. No fevers or chills or head trauma. Timing/Duration: other (Present for 2 to 3 days) Severity/Quality: constant Location: frontal Prior Headaches/Recent Trauma: frequent headaches Associated Symptoms: nausea/vomiting Allergies and Home Medications Allergies Coded Allergies: butorphanol (Verified Allergy, Intermediate, ANXIETY, 02/02/19) cephalexin (Unverified Allergy, Mild, 02/02/19) Home Medications Hydrocodone Bit/Acetaminophen 1 Ea Tablet, 1 EACH PO Q4H PRN for PAIN-MODERATE Prescribed by: ADRIANA MONTANA on 02/09/19 1012 Pantoprazole Sodium 40 Mg Tablet.dr, 40 MG PO DAILY, (Reported) Patient Home Medication List Home Medication List Reviewed: Yes Review of Systems Review of Systems Constitutional: see HPI Eyes: No Symptoms Reported Ears, Nose, Mouth, Throat: no symptoms reported Respiratory: no symptoms reported Cardiovascular: no symptoms reported Genitourinary: no symptoms reported Musculoskeletal: no symptoms reported Skin: no symptoms reported Psychiatric/Neurological: See HPI, Headache Past Uavedoa-Sgxzlp-Ufmgvk Hx Immunizations Up To Date Tetanus Booster (TDap): Unknown Seasonal Allergies Seasonal Allergies: No Past Medical History Surgeries: Yes ( X 2; HYST/OVARIES INTACT) Section, Hysterectomy Respiratory: No Cardiac: No Neurological: No 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 Disorders: Yes Female 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 Disorders: 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 Sexually Transmitted Disease: No HIV/AIDS: No Genitourinary: No Gastrointestinal: Yes Gastroesophageal Reflux, Gall Bladder Disease Musculoskeletal: Yes Arthritis Endocrine: No HEENT: Yes (GLASSES) Loss of Vision: Bilateral Hearing Impairment: Denies Cancer: No Psychosocial: No Integumentary: No Blood Disorders: Yes (ANEMIA) Adverse Reaction/Blood Tranf: No (HAS HAD BLOOD WITH NO REACTION) Family Medical History Cancer 03 FATHER (CANCER OF ANTERIOR AND MEDIAL SURFACE OF THE PHARYNGOEPIGLOTTIC FOLD) Family history: Hypertension 03 MOTHER Physical Exam Vital Signs Capillary Refill : Height, Weight, BMI Height: 5'6.00" Weight: 193lbs. 5.0oz. 87.708726zs; 31.2 BMI Method:Stated General Appearance: WD/WN, no apparent distress HEENT: PERRL/EOMI, normal ENT inspection, TMs normal Neck: non-tender, full range of motion Respiratory: normal breath sounds, no respiratory distress, no accessory muscle use Gastrointestinal: normal bowel sounds, non tender, soft Extremities: normal range of motion, non-tender Psychiatric: alert, oriented x 3 Crainal Nerves: normal hearing, normal speech, PERRL Skin: normal color, warm/dry Progress/Results/Core Measures Results/Orders My Orders Orders - LUIS ADAME APRN Ketorolac Injection (Toradol Injection) (04/26/21 21:15) Prochlorperazine Injection (Compazine In (04/26/21 21:15) Diphenhydramine Injection (Benadryl Inje (04/26/21 21:15) Medications Given in ED Current Medications Medications Dose Ordered Sig/Alysa Route Start Time Stop Time Status Last Admin Dose Admin Diphenhydramine HCl 25 mg ONCE ONCE IM 04/26/21 21:15 04/26/21 21:17 DC 04/26/21 21:48 25 MG Ketorolac Tromethamine 60 mg ONCE ONCE IM 04/26/21 21:15 04/26/21 21:17 DC 04/26/21 21:49 60 MG Prochlorperazine Edisylate 10 mg ONCE ONCE IM 04/26/21 21:15 04/26/21 21:17 DC 04/26/21 21:48 10 MG Departure Impression Primary Impression: Headache Disposition: 01 HOME, SELF-CARE Condition: Stable Departure-Patient Inst. Decision time for Depature: 21:22 Referrals: NO,LOCAL PHYSICIAN (PCP) Primary Care Physician SERGIO HILL APRN (Family) Primary Care Physician Patient Instructions: Headache, Adult LUIS ADAME APRN Apr 26, 2021 21:22
[2021-04-26 22:16] VITALS: BP 123/78
== END 2021-04-26 22:16 | disposition home or self-care (01) ==
LOC: EDUNIT# 21:03 → ER 21:06
DX: R51.9 Headache, unspecified (principal); K21.9 Gastro-esophageal reflux disease without esophagitis; Z79.899 Other long term (current) drug therapy
CPT/HCPCS: 96372; 99284

== ENCOUNTER 2021-05-23 17:36 | Emergency (ER) | payer MEDICAID ==
[~2021-05-23] VITALS: Ht 167 cm; Wt 94.3 kg
[2021-05-23] MEDS ORDERED: fentaNYL INJ 100 MCG/2 ML AMP IVP ONE ×2 (18:15→18:45)
[2021-05-23] MEDS ORDERED: NS IV 1000 ML 1,000 ML IV SCH (18:15)
[2021-05-23] MEDS ORDERED: ONDANSETRON 4 MG/2 ML (SDV) Z0FRAN IVP ONE (18:15)
--- NOTE | 2021-05-23 18:16 | ED Abdominal Pain ---
General Chief Complaint: Abdominal/GI Problems Stated Complaint: ABD,BACK PAIN Source of Information: Patient Exam Limitations: No Limitations History of Present Illness Date Seen by Provider: May 23, 2021 Time Seen by Provider: 18:03 Initial Comments Patient is a 35-year-old female who presents to the emergency department today with a chief complaint of diffuse abdominal pain onset today. Patient states that she went and saw her primary care physician today with a complaint of diarrhea, significant over the last 2 weeks. Patient states that she finished a prescription for a azithromycin for bilateral ear infections just prior to the onset of the diarrhea. She denies fevers or chills. No chest pain, shortness of breath or cough. She states she has been Covid tested 3 times this week and all have been negative. She denies burning with urination, frequency or urgency. She is status post hysterectomy. She is also had a cholecystectomy, 2 C-sections and a hernia repair. Moving around makes her pain worse, nothing makes it any better. She took some Tylenol around 3 or 330 this afternoon without any relief of symptoms. She denies black or bloody stools. She is quite nauseous but has not vomited. Patient states she last ate at about 330 this afternoon. She took her Tylenol around 4. Nothing to eat or drink since. All other review of systems reviewed and negative except as stated. Timing/Duration: 4-6 Hours Severity/Quality: Severe, Aching Location: Generalized Abdomen Radiation: Back Associated Symptoms: Nausea/Vomiting Allergies and Home Medications Allergies Coded Allergies: butorphanol (Verified Allergy, Intermediate, ANXIETY, 02/02/19) cephalexin (Unverified Allergy, Mild, 02/02/19) Patient Home Medication List Home Medication List Reviewed: Yes Hydrocodone Bit/Acetaminophen (Lortab 7.5 Mg Tablet) 1 Ea Tablet, 1 EACH PO Q4H PRN for PAIN-MODERATE Prescribed by: ADRIANA MONTANA on 02/09/19 1012 Ondansetron (Ondansetron Odt) 4 Mg Tab.rapdis, 4 MG PO Q8H Prescribed by: MARGY BRAVO on 05/23/212028 Pantoprazole Sodium (Pantoprazole Sodium) 40 Mg Tablet., 40 MG PO DAILY, (Reported) Entered as Reported by: VANESSA ABDI on 02/02/19 4785 Sulfamethoxazole/Trimethoprim (Bactrim Ds Tablet) 1 Each Tablet, 1 EACH PO BID Prescribed by: MARGY BRAVO on 05/23/212028 Discontinued Medications Sulfamethoxazole/Trimethoprim (Bactrim Ds Tablet) 1 Each Tablet, 1 EACH PO BID Prescribed by: MARGY BRAVO on 05/23/212023 Review of Systems Review of Systems Constitutional: see HPI EENTM: No Symptoms Reported Respiratory: No Symptoms Reported Cardiovascular: No Symptoms Reported Gastrointestinal: Abdominal Pain, Nausea Genitourinary: No Symptoms Reported Musculoskeletal: no symptoms reported Skin: no symptoms reported All Other Systems Reviewed Negative Unless Noted: Yes Past Irkzixs-Ageqzd-Nvwjeb Hx Patient Social History Tobacco Use?: Yes Tobacco type used: Cigarettes Smoking Status: Current Everyday Smoker Substance use?: No Pt feels they are or have been: No Immunizations Up To Date Tetanus Booster (TDap): Unknown First/Initial COVID19 Vaccinat: March COVID19 Vaccination Kirk: N/A 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 Vaccine 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[employer] Seasonal Allergies Seasonal Allergies: No Past Medical History Surgery/Hospitalization HX: SX: HYST, GALLBLADDER, HERNIA REPAIR, Surgeries: Yes ( X 2; HYST/OVARIES INTACT) Section, Hysterectomy Respiratory: No Cardiac: No Neurological: No 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 Disorders: Yes Female 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 Disorders: 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 Sexually Transmitted Disease: No HIV/AIDS: No Genitourinary: No Gastrointestinal: Yes Gastroesophageal Reflux, Gall Bladder Disease Musculoskeletal: Yes Arthritis Endocrine: No HEENT: Yes (GLASSES) Loss of Vision: Bilateral Hearing Impairment: Denies Cancer: No Psychosocial: No Integumentary: No Blood Disorders: Yes (ANEMIA) Adverse Reaction/Blood Tranf: No (HAS HAD BLOOD WITH NO REACTION) Family Medical History Cancer 03 FATHER (CANCER OF ANTERIOR AND MEDIAL SURFACE OF THE PHARYNGOEPIGLOTTIC FOLD) Family history: Hypertension 03 MOTHER Physical Exam Vital Signs Vital Signs - First Documented 05/23/21 05/23/21 18:08 20:28 Temp 35.9 Pulse 70 Resp 18 B/P (MAP) 130/87 (101) Pulse Ox 99 O2 Delivery Room Air Capillary Refill : Height/Weight/BMI Height: 5'6.00" Weight: 193lbs. 5.0oz. 87.606990ca; 34.00 BMI Method:Stated General Appearance: WD/WN, moderate distress (tearful) HEENT: PERRL/EOMI Respiratory: lungs clear, normal breath sounds, no respiratory distress Cardiovascular: regular rate, rhythm Gastrointestinal: soft, abnormal bowel sounds (hypoactive), guarding, rebound (RLQ), tenderness (periumbilical and RLQ) Extremities: normal range of motion, non-tender, normal inspection, no pedal edema, no calf tenderness 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: alert, oriented x 3, other (crying due to pain) Skin: normal color, warm/dry Progress/Results/Core Measures Results/Orders Lab Results Laboratory Tests Test 05/23/21 18:29 05/23/21 19:56 Range/Units White Blood Count 12.2 H 4.3-11.0 10^3/uL Red Blood Count 4.74 3.80-5.11 10^6/uL Hemoglobin 14.5 11.5-16.0 g/dL Hematocrit 44 35-52 % Mean Corpuscular Volume 92 80-99 fL Mean Corpuscular Hemoglobin 31 25-34 pg Mean Corpuscular Hemoglobin Concent 33 32-36 g/dL Red Cell Distribution Width 13.6 10.0-14.5 % Platelet Count 219 130-400 10^3/uL Mean Platelet Volume 12.0 9.0-12.2 fL Immature Granulocyte % (Auto) 1 % Neutrophils (%) (Auto) 59 42-75 % Lymphocytes (%) (Auto) 27 12-44 % Monocytes (%) (Auto) 8 0-12 % Eosinophils (%) (Auto) 4 0-10 % Basophils (%) (Auto) 1 0-10 % Neutrophils # (Auto) 7.2 1.8-7.8 10^3/uL Lymphocytes # (Auto) 3.3 1.0-4.0 10^3/uL Monocytes # (Auto) 1.0 0.0-1.0 10^3/uL Eosinophils # (Auto) 0.5 H 0.0-0.3 10^3/uL Basophils # (Auto) 0.1 0.0-0.1 10^3/uL Immature Granulocyte # (Auto) 0.1 0.0-0.1 10^3/uL Sodium Level 142 135-145 MMOL/L Potassium Level 3.5 L 3.6-5.0 MMOL/L Chloride Level 111 H 98-107 MMOL/L Carbon Dioxide Level 22 21-32 MMOL/L Anion Gap 9 5-14 MMOL/L Blood Urea Nitrogen 11 7-18 MG/DL Creatinine 0.81 0.60-1.30 MG/DL Estimat Glomerular Filtration Rate 81 BUN/Creatinine Ratio 14 Glucose Level 104 70-105 MG/DL Calcium Level 9.0 8.5-10.1 MG/DL Corrected Calcium 8.9 8.5-10.1 MG/DL Total Bilirubin 0.4 0.1-1.0 MG/DL Aspartate Amino Transf (AST/SGOT) 17 5-34 U/L Alanine Aminotransferase (ALT/SGPT) 33 0-55 U/L Alkaline Phosphatase 84 40-136 U/L Total Protein 7.0 6.4-8.2 GM/DL Albumin 4.1 3.2-4.5 GM/DL Lipase 53 8-78 U/L Urine Color YELLOW Urine Clarity SL CLOUDY Urine pH 6.0 5-9 Urine Specific [place] >=1.030 1.016-1.022 Urine Protein NEGATIVE NEGATIVE Urine Glucose (UA) NEGATIVE NEGATIVE Urine Ketones NEGATIVE NEGATIVE Urine Nitrite NEGATIVE NEGATIVE Urine Bilirubin NEGATIVE NEGATIVE Urine Urobilinogen 1.0 < = 1.0 MG/DL Urine Leukocyte Esterase 1+ H NEGATIVE Urine RBC (Auto) TRACE-I NEGATIVE Urine RBC RARE /HPF Urine WBC 25-50 H /HPF Urine Squamous Epithelial Cells 5-10 /HPF Urine Crystals PRESENT H /LPF Urine Calcium Oxalate Crystals FEW H /LPF Urine Bacteria MODERATE H /HPF Urine Casts NONE /LPF Urine Mucus MODERATE H /LPF Urine Culture Indicated YES My Orders Orders - MARGY BRAVO MD Ed Iv/Invasive Line Start (05/23/21 18:11) Cbc With Automated Diff (05/23/21 18:11) Comprehensive Metabolic Panel (05/23/21 18:11) Lipase (05/23/21 18:11) Ns Iv 1000 Ml (Sodium Chloride 0.9%) (05/23/21 18:15) Fentanyl Inj (Sublimaze Injection) (05/23/21 18:15) Ondansetron Injection (Zofran Injectio (05/23/21 18:15) Fentanyl Inj (Sublimaze Injection) (05/23/21 18:45) Ct Abdomen/Pelvis Wo (05/23/21 18:41) Ua Culture If Indicated (05/23/21 19:34) Ketorolac Injection (Toradol Injection) (05/23/21 19:45) Urine Culture (05/23/21 19:56) Sulfamethoxazole/Trimet Ds Tab (Bactrim (05/23/21 20:30) Medications Given in ED Current Medications Medications Dose Ordered Sig/Alysa Route Start Time Stop Time Status Last Admin Dose Admin Fentanyl Citrate 25 mcg ONCE ONCE IVP 05/23/21 18:15 05/23/21 18:16 DC 05/23/21 18:31 25 MCG Fentanyl Citrate 50 mcg ONCE ONCE IVP 05/23/21 18:45 05/23/21 18:46 DC 05/23/21 19:00 50 MCG Ketorolac Tromethamine 30 mg ONCE ONCE IVP 05/23/21 19:45 05/23/21 19:46 DC 05/23/21 19:52 30 MG Ondansetron HCl 4 mg ONCE ONCE IVP 05/23/21 18:15 05/23/21 18:16 DC 05/23/21 18:31 4 MG Trimethoprim/ Sulfamethoxazole 1 ea ONCE ONCE PO 05/23/21 20:30 05/23/21 20:30 DC 05/23/21 20:27 1 EA Vital Signs/I&O 05/23/21 05/23/21 18:08 20:28 Temp 35.9 36.6 Pulse 70 64 Resp 18 18 B/P (MAP) 130/87 (101) 126/79 Pulse Ox 99 100 O2 Delivery Room Air 05/24/21 00:00 Intake Total 1000 ml Balance 1000 ml Progress Progress Note : Time: 19:43 Progress Note Patient reassessed still having pain at a "7". Vital signs are stable. Liter of fluids is basically complete. Labs have been reviewed, mild leukocytosis of 12,000. Chemistry and liver functions are normal. CT abdomen and pelvis is normal. No evidence of acute appendicitis or other acute intra-abdominal pathology. Urinalysis is ordered at this time to rule out any urologic infection. No evidence of ureteral stone was seen on CAT scan. If her urine is normal we will send her home with 24-hour recheck. Diagnostic Imaging Diagonstic Imaging: CT Comments [facility]. [place], [place] NAME: KEATON TAVERAS [facility] REC#: [id number] PT STATUS: REG ER : 1985 PHYSICIAN: MARGY BRAVO MD ADMIT DATE: 05/23/21/ER Signed Date of Exam:05/23/21 CT ABDOMEN/PELVIS WO CT ABDOMEN/PELVIS WO TECHNIQUE: Unenhanced CT imaging of the abdomen and pelvis was performed. 2-D reformats are created and submitted for interpretation. Automatic exposure controls were utilized to optimize patient dose. INDICATION: Periumbilical and right lower quadrant pain COMPARISON: None available. FINDINGS: Evaluation of the abdominal viscera is mildly limited without contrast. Lower chest: The lung bases are clear. No pericardial or pleural effusion. Peritoneum: No free intraperitoneal air or fluid. Liver and biliary system: Diffuse hypoattenuation liver is indicative of hepatic steatosis. No focal hepatic lesion is appreciated by noncontrast imaging. Cholecystectomy. No biliary duct dilatation. Spleen and Pancreas: Spleen is normal. Unenhanced pancreas is grossly normal. Adrenals: Normal. tract: No renal or ureteral calculi. No obstructive uropathy. Urinary bladder is decompressed. Status post hysterectomy. No adnexal mass. GI tract: Stomach is decompressed. No bowel obstruction. No pericolonic inflammatory changes. Normal appendix. Vasculature and Lymph nodes: Normal caliber aorta. No abdominal or pelvic lymphadenopathy. Musculoskeletal: No concerning osseous lesion. IMPRESSION: 1. Normal appendix. 2. No colitis or diverticulitis. 3. No urinary tract calculi or obstructive uropathy. 4. Diffuse hepatic steatosis. Dictated by: Dictated on workstation # [id number] Dict: 05/23/211920 Trans: 05/23/211922 [facility] [id number] Interpreted by: MALU BRITT MD Electronically signed by: MALU BRITT MD 05/23/211922 Departure Impression Primary Impression: Abdominal pain Qualified Codes: R10.84 - Generalized abdominal pain Additional Impression: Bladder infection Disposition: 01 HOME, SELF-CARE Condition: Stable Departure-Patient Inst. Decision time for Depature: 19:53 Referrals: NO,LOCAL PHYSICIAN (PCP) Primary Care Physician SERGIO HILL APRN (Family) Primary Care Physician Patient Instructions: Abdominal Pain, Adult ED, Urinary Tract Infection, Adult ED Add. Discharge Instructions: drink lots of fluids to stay well hydrated and while you are taking antibiotics. finish a 5 day course of the antibiotics. Take over the counter alleve, 2 pills twice a day with food for pain. COme back to the Emergency Department in 24-48 hours or sooner if your pain is worsening, if you have fever, vomiting or any other emergent concerning symptoms. You can take over the counter immodium for the diarrhea - as instructed on the bottle. Scripts Ondansetron (Ondansetron Odt) 4 Mg Tab.rapdis 4 MG PO Q8H for nausea, #15 TAB Prov: MARGY BRAVO MD 05/23/21 Sulfamethoxazole/Trimethoprim (Bactrim Ds Tablet) 1 Each Tablet 1 EACH PO BID for 5 Days, #9 TAB Prov: MARGY BRAVO MD 05/23/21 Progress Note Addendum Progress Notes/Assess & Plan Date Seen 05/24/21 MARGY BRAVO MD May 23, 2021 18:16
[2021-05-23 18:38] LABS: BASOPHILS # (AUTO) 0.1 10^3/uL (0.0-0.1); BASOPHILS % (AUTO) 1 % (0-10); EOSINOPHILS # (AUTO) 0.5 10^3/uL (0.0-0.3); EOSINOPHILS % (AUTO) 4 % (0-10); HEMATOCRIT 44 % (35-52); HEMOGLOBIN 14.5 g/dL (11.5-16.0); LYMPHOCYTES # (AUTO) 3.3 10^3/uL (1.0-4.0); LYMPHOCYTES % (AUTO) 27 % (12-44); MEAN CORPUSCULAR HEMOGLOBIN 31 pg (25-34); MEAN CORPUSCULAR HGB CONC 33 g/dL (32-36); MEAN CORPUSCULAR VOLUME 92 fL (80-99); MONOCYTES % (AUTO) 8 % (0-12); NEUTROPHILS # (AUTO) 7.2 10^3/uL (1.8-7.8); NEUTROPHILS % (AUTO) 59 % (42-75); PLATELET COUNT 219 10^3/uL (130-400); WHITE BLOOD COUNT 12.2 10^3/uL (4.3-11.0)
[2021-05-23 18:46] LABS: ALBUMIN 4.1 GM/DL (3.2-4.5); POTASSIUM 3.5 MMOL/L (3.6-5.0)
[2021-05-23 18:51] LABS: BILIRUBIN,TOTAL 0.4 MG/DL (0.1-1.0)
[2021-05-23 18:52] LABS: CREATININE SERUM 0.81 MG/DL (0.60-1.30)
--- NOTE | 2021-05-23 19:25 | Diagnostic Imaging Report ---
CT ABDOMEN/PELVIS WO TECHNIQUE: Unenhanced CT imaging of the abdomen and pelvis was performed. 2-D reformats are created and submitted for interpretation. Automatic exposure controls were utilized to optimize patient dose. INDICATION: Periumbilical and right lower quadrant pain COMPARISON: None available. FINDINGS: Evaluation of the abdominal viscera is mildly limited without contrast. Lower chest: The lung bases are clear. No pericardial or pleural effusion. Peritoneum: No free intraperitoneal air or fluid. Liver and biliary system: Diffuse hypoattenuation liver is indicative of hepatic steatosis. No focal hepatic lesion is appreciated by noncontrast imaging. Cholecystectomy. No biliary duct dilatation. Spleen and Pancreas: Spleen is normal. Unenhanced pancreas is grossly normal. Adrenals: Normal. tract: No renal or ureteral calculi. No obstructive uropathy. Urinary bladder is decompressed. Status post hysterectomy. No adnexal mass. GI tract: Stomach is decompressed. No bowel obstruction. No pericolonic inflammatory changes. Normal appendix. Vasculature and Lymph nodes: Normal caliber aorta. No abdominal or pelvic lymphadenopathy. Musculoskeletal: No concerning osseous lesion. IMPRESSION: 1. Normal appendix. 2. No colitis or diverticulitis. 3. No urinary tract calculi or obstructive uropathy. 4. Diffuse hepatic steatosis. Dictated by: Dictated on workstation # [id number]
[2021-05-23] MEDS ORDERED: KETOROLAC 30 MG/ML VIAL IVP ONE (19:45)
[2021-05-23 20:01] LABS: BILIRUBIN,URINE NEGATIVE (NEGATIVE); CLARITY,URINE SL CLOUDY; COLOR,URINE YELLOW; GLUCOSE, URINE (UA) NEGATIVE (NEGATIVE); KETONES,URINE NEGATIVE (NEGATIVE); LEUKOCYTE ESTERASE ,URINE 1+ (NEGATIVE); NITRITE,URINE NEGATIVE (NEGATIVE); PROTEIN,URINE NEGATIVE (NEGATIVE)
[2021-05-23 20:08] LABS: BACTERIA,URINE MODERATE /HPF; CALCIUM OXALATE CRYSTALS,UR FEW /LPF; RBC,URINE RARE /HPF; WBC,URINE 25-50 /HPF
[2021-05-23] MEDS ORDERED: SULF1TAB38 PO ×2 (20:24→20:29)
[2021-05-23 20:28] VITALS: BP 126/79
[2021-05-23] MEDS ORDERED: ONDA4TAB11 PO (20:29)
[2021-05-23] MEDS ORDERED: TRIM/SULFAMETH 160/800 (SEPTRA DS) TAB PO ONE (20:30)
== END 2021-05-23 20:30 | disposition home or self-care (01) ==
LOC: EDUNIT# 17:36 → ER 17:38
DX: R10.84 Generalized abdominal pain (principal); N30.90 Cystitis, unspecified without hematuria; K21.9 Gastro-esophageal reflux disease without esophagitis; F17.210 Nicotine dependence, cigarettes, uncomplicated; Z90.49 Acquired absence of other specified parts of digestive tract; Z79.899 Other long term (current) drug therapy
CPT/HCPCS: 36415; 74176; 80053; 81000; 83690; 85025; 87088

== ENCOUNTER 2021-11-18 20:09 | Emergency (ER) | payer MEDICAID ==
[~2021-11-18 20:09] MED LIST changes: +ONDA4TAB11 PO; +SULF1TAB38 PO
[2021-11-18 20:30] VITALS: BP 127/93
--- NOTE | 2021-11-18 20:39 | ED Cough/URI ---
General Chief Complaint: Respiratory Problems Stated Complaint: COUGH, CONGESTION, WHEEZING Source: patient Exam Limitations: no limitations (JANNETH HOGAN) History of Present Illness Date Seen by Provider: Nov 18, 2021 Time Seen by Provider: 20:38 Initial Comments Patient is a 36-year-old female presents ED with congestion, cough. She reports symptoms over the past week and a half. She reports green sputum production. She reports wheezing. No history of asthma, COPD. Diagnosed with Covid first part of October. She improved was diagnosed with strep throat last week. She was prescribed azithromycin and then started on clindamycin. No history of coronary artery disease. Denies any chest pain, abominal pain and vomiting, diarrhea, fever. No respiratory distress. (JANNETH HOGAN) Allergies and Home Medications Allergies Coded Allergies: butorphanol (Verified Allergy, Intermediate, ANXIETY, 02/02/19) cephalexin (Unverified Allergy, Mild, 02/02/19) Patient Home Medication List Home Medication List Reviewed: Yes (JANNETH HOGAN) Hydrocodone Bit/Acetaminophen (Lortab 7.5 Mg Tablet) 1 Ea Tablet, 1 EACH PO Q4H PRN for PAIN-MODERATE Prescribed by: ADRIANA MONTANA on 02/09/19 1012 Ondansetron (Ondansetron Odt) 4 Mg Tab.rapdis, 4 MG PO Q8H Prescribed by: MARGY BRAVO on 05/23/212028 Pantoprazole Sodium (Pantoprazole Sodium) 40 Mg Tablet.dr, 40 MG PO DAILY, (Reported) Entered as Reported by: VANESSA ABDI on 02/02/19 1455 Prednisone (Prednisone) 50 Mg Tab, 50 MG PO DAILY Prescribed by: ROJAS CORDERO on 11/18/212128 Sulfamethoxazole/Trimethoprim (Bactrim Ds Tablet) 1 Each Tablet, 1 EACH PO BID Prescribed by: MARGY BRAVO on 05/23/212028 Review of Systems Review of Systems Constitutional: No chills, No diaphoresis, No fever, No malaise, No weakness EENTM: No ear pain, No blurred vision, No dental problems, No mouth swelling, No throat pain, No throat swelling Respiratory: cough, short of breath, wheezing Gastrointestinal: No abdominal pain, No diarrhea, No nausea, No vomiting Genitourinary: No decreased output, No discharge Musculoskeletal: No back pain, No joint pain Skin: No change in color, No change in hair/nails Psychiatric/Neurological: Denies See HPI (JANNETH HOGAN) All Other Systems Reviewed Negative Unless Noted: Yes (JANNETH HOGAN) Past Kmwdijz-Rqdsxi-Szjphl Hx Immunizations Up To Date Tetanus Booster (TDap): Unknown First/Initial COVID19 Vaccinat: MARCH Second COVID19 Vaccination Kirk: N/A (JANNETH HOGAN) Seasonal Allergies Seasonal Allergies: No (JANNETH HOGAN) Past Medical History Surgery/Hospitalization HX: SX: HYST, GALLBLADDER, HERNIA REPAIR, Surgeries: Yes ( X 2; HYST/OVARIES INTACT) Section, Hysterectomy Respiratory: No Cardiac: No Neurological: No 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 Disorders: Yes Female 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 Disorders: 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 Sexually Transmitted Disease: No HIV/AIDS: No Genitourinary: No Gastrointestinal: Yes Gastroesophageal Reflux, Gall Bladder Disease Musculoskeletal: Yes Arthritis Endocrine: No HEENT: Yes (GLASSES) Loss of Vision: Bilateral Hearing Impairment: Denies Cancer: No Psychosocial: No Integumentary: No Blood Disorders: Yes (ANEMIA) Adverse Reaction/Blood Tranf: No (HAS HAD BLOOD WITH NO REACTION) (JANNETH HOGAN) Family Medical History Cancer 03 FATHER (CANCER OF ANTERIOR AND MEDIAL SURFACE OF THE PHARYNGOEPIGLOTTIC FOLD) Family history: Hypertension 03 MOTHER Physical Exam Vital Signs - First Documented 11/18/21 20:30 Temp 36.6 Pulse 64 Resp 18 B/P (MAP) 127/93 (104) Pulse Ox 98 O2 Delivery Room Air (CHINTAN VÁSQUEZ MD) Capillary Refill : (JANNETH HOGAN) Height: 5'6.00" Weight: 193lbs. 5.0oz. 87.819467fd; 33.00 BMI Method:Stated General Appearance: WD/WN, no apparent distress Eyes: Bilateral Eye Normal Inspection, Bilateral Eye PERRL, Bilateral Eye EOMI HEENT: PERRL/EOMI, normal ENT inspection, TMs normal, pharynx normal Neck: non-tender, full range of motion, supple, normal inspection Respiratory: chest non-tender, lungs clear, normal breath sounds, no respiratory distress, no accessory muscle use Cardiovascular: regular rate, rhythm, no edema, no gallop, no JVD Gastrointestinal: normal bowel sounds, non tender, soft, no organomegaly Extremities: normal range of motion, non-tender, normal inspection, no pedal edema, no calf tenderness 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: 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-XII nml as tested, no motor/sensory deficits, alert, normal mood/affect, oriented x 3 (JANNETH HOGAN) Progress/Results/Core Measures Suspected Sepsis SIRS Temperature: Pulse: Respiratory Rate: Blood Pressure / Mean: (JANNETH HOGAN) Results/Orders Lab Results Laboratory Tests Test 11/18/21 20:30 Range/Units Influenza Type A (RT-PCR) Not Detected Not Detecte Influenza Type B (RT-PCR) Not Detected Not Detecte SARS-CoV-2 RNA (RT-PCR) Not Detected Not Detecte (CHINTAN VÁSQUEZ MD) Vital Signs/I&O 11/18/21 11/18/21 20:30 20:30 Temp 36.6 Pulse 64 Resp 18 B/P (MAP) 127/93 (104) Pulse Ox 98 O2 Delivery Room Air Room Air (CHINTAN VÁSQUEZ MD) Vital Signs/I&O Capillary Refill : (JANNETH HOGAN) Departure Communication (Admissions) Patient presents ED with a cough with wheezing over the past week and a half. History of smoking. Denies asthma or COPD. Has used an albuterol inhaler in the past but reports increased anxiety secondary to the medication. No notable wheezing. Chest x-ray negative for pneumonia. Vital signs stable. Influenza negative. Covid earlier last month. Currently on clindamycin secondary to strep throat. Exam otherwise benign. Will discharge with short burst steroids. Patient was given IM Decadron here. Likely URI symptoms versus residual from Covid. Return precautions were discussed with patient. (JANNETH HOGAN) Impression Primary Impression: URI (upper respiratory infection) Disposition: 01 HOME, SELF-CARE Condition: Stable Departure-Patient Inst. Decision time for Depature: 21:28 (JANNETH HOGAN) Referrals: [facility]LEN[facility] (PCP) Primary Care Physician SERGIO HILL APRN (Family) Primary Care Physician Patient Instructions: Upper Respiratory Infection ED Scripts Prednisone (Prednisone) 50 Mg Tab 50 MG PO DAILY for 5 Days, #5 TAB Prov: JANNETH HOGAN 11/18/21 ATTENDING PHYSICIAN NOTE: I was physically present as attending physician in the emergency department during the care of this patient, but I was not directly involved in the decision making or delivery of care for this patient. (CHINTAN VÁSQUEZ MD) JANNETH HOGAN Nov 18, 2021 20:39 CHINTAN VÁSQUEZ MD Nov 19, 2021 18:48
--- NOTE | 2021-11-18 21:24 | Diagnostic Imaging Report ---
CHEST PA/LAT (2 VIEW) Indication: Cough Comparison: 01/14/2017 Findings: No pulmonary mass or consolidation. No pleural effusion or pneumothorax. Normal heart size and mediastinal contours. Impression: No acute cardiopulmonary process. Dictated by: Dictated on workstation # [id number]
[2021-11-18] MEDS ORDERED: PRD50T PO (21:29)
[2021-11-20] MEDS ORDERED: LEVO750T39 PO (15:59)
[2021-11-20] MEDS ORDERED: BENZ100C18 PO (15:59)
== END 2021-11-18 21:44 | disposition home or self-care (01) ==
LOC: EDUNIT# 20:09 → ER 20:11
DX: J06.9 Acute upper respiratory infection, unspecified (principal); Z20.822 Contact with and (suspected) exposure to COVID-19
CPT/HCPCS: 71046; 87636

== ENCOUNTER 2021-11-19 19:27 | Observation (INO) | payer MEDICAID ==
[~2021-11-19] VITALS: Ht 167.8 cm; Wt 99.0 kg
[~2021-11-19 19:27] MED LIST changes: +PRD50T PO
--- NOTE | 2021-11-19 19:47 | ED Cough/URI ---
General Chief Complaint: Cough/Cold/Flu Symptoms Stated Complaint: COUGH, FEVER Source: patient Exam Limitations: no limitations (JANNETH HOGAN) History of Present Illness Date Seen by Provider: Nov 19, 2021 Time Seen by Provider: 19:42 Initial Comments Patient is a 36-year-old female presents ED with continuous flulike symptoms. She was seen here yesterday diagnosed with viral URI. Continue having fever today. She took Tylenol but still had a fever 102 at work. Patient had a temperature of 37 on arrival. Continue cough. She took 1 dose of the prednisone. She states it makes her feel anxious. She refuses albuterol secondary to anxiety. She reports diarrhea today. No vomiting. She states she has a headache, generalized weakness and fatigue. Denies of any dysuria, increased urine frequency, visual changes, concern for (JANNETH HOGAN) Allergies and Home Medications Allergies Coded Allergies: butorphanol (Verified Allergy, Intermediate, ANXIETY, 02/02/19) cephalexin (Unverified Allergy, Mild, 02/02/19) amoxicillin (Verified Allergy, Unknown, 11/19/21) Patient Home Medication List Home Medication List Reviewed: Yes (JANNETH HOGAN) Prednisone (Prednisone) 50 Mg Tab, 50 MG PO DAILY Prescribed by: ROJAS CORDERO on 11/18/212128 Discontinued Medications Hydrocodone Bit/Acetaminophen (Lortab 7.5 Mg Tablet) 1 Ea Tablet, 1 EACH PO Q4H PRN for PAIN-MODERATE Discontinued Reason: No Longer Taking Prescribed by: ADRIANA MONTANA on 02/09/19 1012 Last Action: Discontinued Ondansetron (Ondansetron Odt) 4 Mg Tab.rapdis, 4 MG PO Q8H Discontinued Reason: No Longer Taking Prescribed by: MARGY BRAVO on 05/23/212028 Last Action: Discontinued Pantoprazole Sodium (Pantoprazole Sodium) 40 Mg Tablet.dr, 40 MG PO DAILY, (Reported) Discontinued Reason: No Longer Taking Entered as Reported by: VANESAS ABDI on 02/02/19 2765 Last Action: Discontinued Sulfamethoxazole/Trimethoprim (Bactrim Ds Tablet) 1 Each Tablet, 1 EACH PO BID Discontinued Reason: No Longer Taking Prescribed by: MARGY BRAVO on 05/23/212028 Last Action: Discontinued Review of Systems Review of Systems Constitutional: chills, malaise, weakness EENTM: No ear discharge, No ear pain, No eye pain, No mouth pain, No mouth swelling Respiratory: cough; No dyspnea on exertion, No orthopnea Cardiovascular: No see HPI, No chest pain Gastrointestinal: No abdominal pain; diarrhea, nausea; No vomiting Musculoskeletal: No back pain, No joint pain, No joint swelling, No muscle pain Skin: No change in color, No change in hair/nails Psychiatric/Neurological: Denies Anxiety, Denies Depressed (JANNETH HOGAN) All Other Systems Reviewed Negative Unless Noted: Yes (JANNETH HOGAN) Past Boyrcfi-Jtbuoc-Ulkrde Hx Patient Social History Tobacco Use?: Yes Substance use?: No Alcohol Use?: No Pt feels they are or have been: No (JANNETH HOGAN) Immunizations Up To Date Tetanus Booster (TDap): Unknown First/Initial COVID19 Vaccinat: 04/09 Second COVID19 Vaccination Kirk: 07/10 COVID19 Vaccine Curriculum Manager: moderneveline (JANNETH HOGAN) Seasonal Allergies Seasonal Allergies: No (JANNETH HOGAN) Past Medical History Surgery/Hospitalization HX: SX: HYST, GALLBLADDER, HERNIA REPAIR, hysterectomy, tubal, c-sect. 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 Sexually Transmitted Disease: No HIV/AIDS: No Genitourinary: No Gastrointestinal: Yes Gastroesophageal Reflux, Gall Bladder Disease Musculoskeletal: Yes Arthritis Endocrine: No HEENT: Yes (GLASSES) Loss of Vision: Bilateral Hearing Impairment: Denies Cancer: No Psychosocial: No Integumentary: No Blood Disorders: Yes (ANEMIA) Adverse Reaction/Blood Tranf: No (HAS HAD BLOOD WITH NO REACTION) (JANNETH HOGAN) Family Medical History Cancer 03 FATHER (CANCER OF ANTERIOR AND MEDIAL SURFACE OF THE PHARYNGOEPIGLOTTIC FOLD) Family history: Hypertension 03 MOTHER Physical Exam Vital Signs - First Documented 11/19/21 19:30 Temp 37.0 Pulse 95 Resp 18 B/P (MAP) 129/85 (100) Pulse Ox 97 O2 Delivery Room Air (CHINTAN VÁSQUEZ MD) Capillary Refill : (JANNETH HOGAN) Height: 5'6.00" Weight: 193lbs. 5.0oz. [id number]; 33.00 BMI Method:Stated General Appearance: WD/WN, no apparent distress Eyes: Bilateral Eye Normal Inspection, Bilateral Eye PERRL, Bilateral Eye EOMI HEENT: PERRL/EOMI, normal ENT inspection, TMs normal Neck: non-tender, full range of motion, supple Respiratory: chest non-tender, lungs clear, normal breath sounds, no respiratory distress Cardiovascular: regular rate, rhythm, no edema, no gallop, no JVD Gastrointestinal: normal bowel sounds, non tender, soft, no organomegaly Extremities: normal range of motion, non-tender, normal inspection Skin: normal color, warm/dry (JANNETH HOGAN) Focused Exam Lactate Level 11/19/21 20:12: Lactic Acid Level 1.07 (CHINTAN VÁSQUEZ MD) Lactic Acid Level Laboratory Tests Test 11/19/21 20:12 Lactic Acid Level 1.07 MMOL/L (0.50-2.00) (CHINTAN VÁSQUEZ MD) Progress/Results/Core Measures Suspected Sepsis SIRS Temperature: Pulse: Respiratory Rate: Laboratory Tests 11/19/21 19:45: White Blood Count 31.6*H Blood Pressure / Mean: 11/19/21 20:12: Lactic Acid Level 1.07 Laboratory Tests 11/19/21 19:45: Creatinine 0.82, Platelet Count 233, Total Bilirubin 0.4 (JANNETH HOGAN) Results/Orders Lab Results Laboratory Tests Test 11/19/21 19:45 11/19/21 20:05 11/19/21 20:12 Range/Units White Blood Count 31.6 *H 4.3-11.0 10^3/uL Red Blood Count 4.78 3.80-5.11 10^6/uL Hemoglobin 14.6 11.5-16.0 g/dL Hematocrit 43 35-52 % Mean Corpuscular Volume 90 80-99 fL Mean Corpuscular Hemoglobin 31 25-34 pg Mean Corpuscular Hemoglobin Concent 34 32-36 g/dL Red Cell Distribution Width 13.4 10.0-14.5 % Platelet Count 233 130-400 10^3/uL Mean Platelet Volume 11.9 9.0-12.2 fL Immature Granulocyte % (Auto) 2 % Neutrophils (%) (Auto) 84 H 42-75 % Lymphocytes (%) (Auto) 8 L 12-44 % Monocytes (%) (Auto) 6 0-12 % Eosinophils (%) (Auto) 0 0-10 % Basophils (%) (Auto) 0 0-10 % Neutrophils # (Auto) 26.3 H 1.8-7.8 10^3/uL Lymphocytes # (Auto) 2.6 1.0-4.0 10^3/uL Monocytes # (Auto) 2.0 H 0.0-1.0 10^3/uL Eosinophils # (Auto) 0.0 0.0-0.3 10^3/uL Basophils # (Auto) 0.1 0.0-0.1 10^3/uL Immature Granulocyte # (Auto) 0.5 H 0.0-0.1 10^3/uL Neutrophils % (Manual) 85 % Lymphocytes % (Manual) 9 % Monocytes % (Manual) 5 % Band Neutrophils 1 % Blood Morphology Comment NORMAL Sodium Level 138 135-145 MMOL/L Potassium Level 4.5 3.6-5.0 MMOL/L Chloride Level 111 H 98-107 MMOL/L Carbon Dioxide Level 16 L 21-32 MMOL/L Anion Gap 11 5-14 MMOL/L Blood Urea Nitrogen 12 7-18 MG/DL Creatinine 0.82 0.60-1.30 MG/DL Estimat Glomerular Filtration Rate 96 BUN/Creatinine Ratio 15 Glucose Level 143 H 70-105 MG/DL Calcium Level 9.8 8.5-10.1 MG/DL Corrected Calcium 9.4 8.5-10.1 MG/DL Total Bilirubin 0.4 0.1-1.0 MG/DL Aspartate Amino Transf (AST/SGOT) 16 5-34 U/L Alanine Aminotransferase (ALT/SGPT) 34 0-55 U/L Alkaline Phosphatase 74 40-136 U/L C-Reactive Protein High Sensitivity 0.69 H 0.00-0.50 MG/DL Total Protein 7.9 6.4-8.2 GM/DL Albumin 4.5 3.2-4.5 GM/DL Procalcitonin 0.02 <0.10 NG/ML Monoscreen NEGATIVE NEGATIVE Urine Color YELLOW Urine Clarity CLOUDY Urine pH 6.0 5-9 Urine Specific [place] >=1.030 1.016-1.022 Urine Protein TRACE H NEGATIVE Urine Glucose (UA) NEGATIVE NEGATIVE Urine Ketones TRACE H NEGATIVE Urine Nitrite NEGATIVE NEGATIVE Urine Bilirubin NEGATIVE NEGATIVE Urine Urobilinogen 0.2 < = 1.0 MG/DL Urine Leukocyte Esterase 1+ H NEGATIVE Urine RBC (Auto) 1+ H NEGATIVE Urine RBC 2-5 H /HPF Urine WBC 25-50 H /HPF Urine Crystals PRESENT H /LPF Urine Amorphous Sediment FEW RITU URATES H /LPF Urine Bacteria FEW H /HPF Urine Casts NONE /LPF Urine Mucus SMALL H /LPF Urine Culture Indicated YES Urine Test NEGATIVE NEGATIVE Lactic Acid Level 1.07 0.50-2.00 MMOL/L (CHINTAN VÁSQUEZ MD) Medications Given in ED Current Medications Medications Dose Ordered Sig/Alysa Route Start Time Stop Time Status Last Admin Dose Admin Levofloxacin/ Dextrose 150 ml @ 100 mls/hr ONCE ONCE IV 11/19/21 20:45 11/19/21 22:14 DC 11/19/21 21:00 100 MLS/HR (CHINTAN VÁSQUEZ MD) Vital Signs/I&O 11/19/21 19:30 Temp 37.0 Pulse 95 Resp 18 B/P (MAP) 129/85 (100) Pulse Ox 97 O2 Delivery Room Air (CHINTAN VÁSQUEZ MD) Vital Signs/I&O Capillary Refill : (JANNETH HOGAN) Departure Communication (Admissions) Time/Spoke to Admitting Phy: 21:55 Patient reports flulike symptoms over the past week and a half. Currently on clindamycin for strep throat. She reports some mild diarrhea. She has a soft abdomen. She reports coughing. Was seen here yesterday negative chest x-ray Covid and flu. She took 1 dose of prednisone today. She reports mild wheezing and congestion. She refused albuterol as it causes anxiety. Patient was slightly tachycardic at 95 bpm. Afebrile. She reports running a fever throughout the day. Was sent home from work. No specific urinary symptoms. Chest x-ray was unremarkable. Patient lab work returned with leukocytosis white blood count 31,000. No bands. Slight elevated neutrophils. Urinalysis concerning for infection. She is allergic to Keflex and amoxicillin she reports facial swelling, rash. Patient was given Levaquin here. Was given a liter of fluid. Chemistry was otherwise unremarkable. Negative for mono. Second chest x-ray negative for pneumonia. Unclear etiology of her elevated white blood count. CRP was otherwise unremarkable. Procalcitonin normal. Normal lactic acid. Would not suspect such high of a white blood count secondary to 1 dose of prednisone. Denies of any [id number] medication, drug use or alcohol use. No known history of cancer. Normal platelets and hemoglobin. Due to meeting sepsis criteria and current symptoms patient was discussed with hospitalist Dr. Toney. Did offer outpatient follow-up versus admission. She states she does not feel well and is concerned for her elevated white blood count. Patient states she does not feel comfortable as she already return back to the ED feeling worse. Patient will be admitted under observation. (JANNETH HOGAN) Impression Primary Impression: Sepsis Additional Impression: Urinary tract infection Qualified Codes: N39.0 - Urinary tract infection, site not specified Disposition: ADMITTED INPATIENT Condition: Stable Admissions Decision to Admit Reason: Admit from ER (General) Decision to Admit/Date: Nov 19, 2021 Time/Decision to Admit Time: 21:54 (JANNETH HOGAN) Departure-Patient Inst. [place] [facility] [place] Primary Care Physician SERGIO HILL APRN (Family) Primary Care Physician ATTENDING PHYSICIAN NOTE: I was physically present as attending physician in the emergency department during the care of this patient. I have reviewed labs, clinical presentation, and plan of care with ROJAS Marion. I agree with assessment and plan. (CHINTAN VÁSQUEZ MD) JANNETH HOGAN Nov 19, 2021 19:47 CHINTAN VÁSQUEZ MD Nov 20, 2021 06:13
[2021-11-19 19:53] LABS: BASOPHILS # (AUTO) 0.1 10^3/uL (0.0-0.1); BASOPHILS % (AUTO) 0 % (0-10); EOSINOPHILS % (AUTO) 0 % (0-10); HEMATOCRIT 43 % (35-52); HEMOGLOBIN 14.6 g/dL (11.5-16.0); LYMPHOCYTES # (AUTO) 2.6 10^3/uL (1.0-4.0); LYMPHOCYTES % (AUTO) 8 % (12-44); MEAN CORPUSCULAR HEMOGLOBIN 31 pg (25-34); MEAN CORPUSCULAR HGB CONC 34 g/dL (32-36); MEAN CORPUSCULAR VOLUME 90 fL (80-99); MEAN PLATELET VOLUME 11.9 fL (9.0-12.2); MONOCYTES % (AUTO) 6 % (0-12); NEUTROPHILS # (AUTO) 26.3 10^3/uL (1.8-7.8); NEUTROPHILS % (AUTO) 84 % (42-75); PLATELET COUNT 233 10^3/uL (130-400)
[2021-11-19 19:57] LABS: WHITE BLOOD COUNT 31.6 10^3/uL (4.3-11.0)
[2021-11-19] MEDS ORDERED: NS IV 1000 ML 1,000 ML IV STA (19:59)
[2021-11-19 20:02] LABS: ALBUMIN 4.5 GM/DL (3.2-4.5); POTASSIUM 4.5 MMOL/L (3.6-5.0)
[2021-11-19 20:03] LABS: CALCIUM 9.8 MG/DL (8.5-10.1)
[2021-11-19 20:05] LABS: TOTAL PROTEIN 7.9 GM/DL (6.4-8.2)
[2021-11-19 20:06] LABS: BILIRUBIN,TOTAL 0.4 MG/DL (0.1-1.0)
[2021-11-19 20:08] LABS: CREATININE SERUM 0.82 MG/DL (0.60-1.30)
[2021-11-19 20:15] LABS: BILIRUBIN,URINE NEGATIVE (NEGATIVE); CLARITY,URINE CLOUDY; COLOR,URINE YELLOW; GLUCOSE, URINE (UA) NEGATIVE (NEGATIVE); KETONES,URINE TRACE (NEGATIVE); LEUKOCYTE ESTERASE ,URINE 1+ (NEGATIVE); NITRITE,URINE NEGATIVE (NEGATIVE); PROTEIN,URINE TRACE (NEGATIVE)
[2021-11-19 20:29] LABS: WBC,URINE 25-50 /HPF
[2021-11-19 20:30] LABS: AMORPHOUS SEDIMENT,UR FEW AMOR URATES /LPF; BACTERIA,URINE FEW /HPF
[2021-11-19 20:37] LABS: BAND NEUTROPHILS 1 %; LYMPHOCYTES % (MANUAL) 9 %; MONOCYTES % (MANUAL) 5 %; NEUTROPHILS % (MANUAL) 85 %; RBC MORPH NORMAL
--- NOTE | 2021-11-19 20:37 | Diagnostic Imaging Report ---
CHEST PA/LAT (2 VIEW) Indication: Cough Comparison: 11/18/2021 Findings: No pulmonary mass or consolidation. No pleural effusion or pneumothorax. Normal heart size and mediastinal contours. Impression: No acute cardiopulmonary process. Dictated by: Dictated on workstation # [id number]
[2021-11-19 22:02] VITALS: BP 127/75
[2021-11-19] MEDS ORDERED: ACETAMINOPHEN 500 MG TAB (TYLENOL) PO PRN (22:15)
[2021-11-19] MEDS ORDERED: ONDANSETRON 4 MG/2 ML (SDV) Z0FRAN IV PRN (22:15)
[2021-11-19] MEDS ORDERED: IBUPROFEN 800 MG (MOTRIN) TAB PO PRN (22:15)
[2021-11-19] MEDS: NS IV 1000 ML 1,000 ML IV SCH (22:22)
[2021-11-19 23:40] VITALS: BP 114/66
[2021-11-20] VITALS (7 sets, daily range): BP systolic 94–107; BP diastolic 56–67
[2021-11-20] MEDS: NS IV 1000 ML 1,000 ML IV SCH ×2 (05:11→12:01)
[2021-11-20] MEDS ORDERED: CATHETER FLUSH 10 ML SYR IVP PRN (06:45)
[2021-11-20 06:51] LABS: BASOPHILS % (AUTO) 0 % (0-10); EOSINOPHILS # (AUTO) 0.1 10^3/uL (0.0-0.3); EOSINOPHILS % (AUTO) 0 % (0-10); HEMATOCRIT 38 % (35-52); HEMOGLOBIN 12.7 g/dL (11.5-16.0); LYMPHOCYTES # (AUTO) 3.1 10^3/uL (1.0-4.0); LYMPHOCYTES % (AUTO) 14 % (12-44); MEAN CORPUSCULAR HEMOGLOBIN 31 pg (25-34); MEAN CORPUSCULAR HGB CONC 33 g/dL (32-36); MEAN CORPUSCULAR VOLUME 93 fL (80-99); MONOCYTES # (AUTO) 1.6 10^3/uL (0.0-1.0); MONOCYTES % (AUTO) 7 % (0-12); NEUTROPHILS # (AUTO) 16.7 10^3/uL (1.8-7.8); NEUTROPHILS % (AUTO) 77 % (42-75); PLATELET COUNT 170 10^3/uL (130-400); WHITE BLOOD COUNT 21.8 10^3/uL (4.3-11.0)
[2021-11-20 07:16] LABS: CALCIUM 8.2 MG/DL (8.5-10.1); CREATININE SERUM 0.71 MG/DL (0.60-1.30); POTASSIUM 4.1 MMOL/L (3.6-5.0)
[2021-11-20] MEDS ORDERED: BENZONATATE 100 MG (TESSALON) CAPSULE PO ONE (12:12)
[2021-11-20] MEDS ORDERED: BENZONATATE 100 MG (TESSALON) CAPSULE PO SCH (13:00)
[2021-11-20] MEDS ORDERED: LORA10TA7 PO (13:33)
[2021-11-20] MEDS ORDERED: CLIN-144 PO (13:33)
[2021-11-20] MEDS ORDERED: PRD50T PO (13:33)
[2021-11-20] MEDS ORDERED: LEVO750T39 PO (15:59)
[2021-11-20] MEDS ORDERED: BENZ100C18 PO (15:59)
--- NOTE | 2021-11-20 15:59 | Short Stay Summary ---
Discharge Summary Hospital Course Final Diagnosis: Pneumonia Hospital Course Date of Admission: Nov 19, 2021 at 21:21 Admission Diagnosis : [facility] Date of Discharge: 11/20/21 Discharge Diagnosis: Pneumonia Leukocytosis PostCOVID cough Hospital Course: Pt admitted with fever, cough and marked leukocytosis. She had COVID Oct 21, had cough, congestion, diarrhea, loss of taste. Some things got better but symptoms persisted, so on Nov 05 she was still sick and was seen at walk-in and diagnosed with bilateral ear infection and treated for that with azithromycin with no improvement. On Nov 12, she was still not feeling well and was seen again and diagnosed with strep and started on clindamycin. 2 days ago she was seen in the ER and had negative flu/COVID testing and was given prednisone, she declined albuterol due to anxiety with it. Yesterday her cough was really bothering her and she just didn't feel well, so she came back, an was found to have WBC above 30, suspect partly due to steroids. Her CXR showed no clear infiltrate, urine had no growth, mono was negative. She did have marked improvement in her leukocytosis overnight with one dose of levofloxacin, so this was continued on d/c, but suspect some of her symptoms are lingering post-viral. Considered PE, but low likelihood given symptoms of cough and fever without significant shor tness of breath. Her D dimer was normal so CTA was not done. Labs and Pending Lab Test: Laboratory Tests 11/19/21 19:45: White Blood Count 31.6*H, Red Blood Count 4.78, Hemoglobin 14.6, Hematocrit 43, Mean Corpuscular Volume 90, Mean Corpuscular Hemoglobin 31, Mean Corpuscular Hemoglobin Concent 34, Red Cell Distribution Width 13.4, Platelet Count 233, Mean Platelet Volume 11.9, Immature Granulocyte % (Auto) 2, Neutrophils (%) (Auto) 84H, Lymphocytes (%) (Auto) 8L, Monocytes (%) (Auto) 6, Eosinophils (%) (Auto) 0, Basophils (%) (Auto) 0, Neutrophils # (Auto) 26.3H, Lymphocytes # (Auto) 2.6, Monocytes # (Auto) 2.0H, Eosinophils # (Auto) 0.0, Basophils # (Auto) 0.1, Immature Granulocyte # (Auto) 0.5H, Neutrophils % (Manual) 85, Lymphocytes % (Manual) 9, Monocytes % (Manual) 5, Band Neutrophils 1, Blood Morphology Comment NORMAL, Sodium Level 138, Potassium Level 4.5, Chloride Level 111H, Carbon Dioxide Level 16L, Anion Gap 11, Blood Urea Nitrogen 12, Creatinine 0.82, Estimat Glomerular Filtration Rate 96, BUN/Creatinine Ratio 15, Glucose Level 143H, Calcium Level 9.8, Corrected Calcium 9.4, Total Bilirubin 0.4, Aspartate Amino Transf (AST/SGOT) 16, Alanine Aminotransferase (ALT/SGPT) 34, Alkaline Phosphatase 74, C-Reactive Protein High Sensitivity 0.69H, Total Protein 7.9, Albumin 4.5, Procalcitonin 0.02, Monoscreen NEGATIVE 11/19/21 20:05: Urine Color YELLOW, Urine Clarity CLOUDY, Urine pH 6.0, Urine Specific [place] >=1.030, Urine Protein TRACEH, Urine Glucose (UA) NEGATIVE, Urine Ketones TRACEH , Urine Nitrite NEGATIVE, Urine Bilirubin NEGATIVE, Urine Urobilinogen 0.2, Urine Leukocyte Esterase 1+H, Urine RBC (Auto) 1+H, Urine RBC 2-5H, Urine WBC 25-50H, Urine Crystals PRESENTH, Urine Amorphous Sediment FEW RITU URATESH, U rine Bacteria FEWH, Urine Casts NONE, Urine Mucus SMALLH, Urine Culture Indicated YES, Urine Test NEGATIVE 11/19/21 20:12: Lactic Acid Level 1.07 11/20/21 06:43: White Blood Count 21.8H, Red Blood Count 4.14, Hemoglobin 12.7, Hematocrit 38, Mean Corpuscular Volume 93, Mean Corpuscular Hemoglobin 31, Mean Corpuscular Hemoglobin Concent 33, Red Cell Distribution Width 13.8, Platelet Count 170, Mean Platelet Volume 12.0, Immature Granulocyte % (Auto) 1, Neutrophils (%) (Auto) 77H, Lymphocytes (%) (Auto) 14, Monocytes (%) (Auto) 7, Eosinophils (%) (Auto) 0, Basophils (%) (Auto) 0, Neutrophils # (Auto) 16.7H, Lymphocytes # (Auto) 3.1, Monocytes # (Auto) 1.6H, Eosinophils # (Auto) 0.1, Basophils # (Auto) 0.0, Immature Granulocyte # (Auto) 0.2H, Sodium Level 139, Potassium Level 4.1, Chloride Level 115H, Carbon Dioxide Level 15L, Anion Gap 9, Blood Urea Nitrogen 9, Creatinine 0.71, Estimat Glomerular Filtration Rate 114, BUN/Creatinine Ratio 13, Glucose Level 115H, Calcium Level 8.2L, D-Dimer < 0.27 Microbiology 11/19/21 Urine Culture - Preliminary, Resulted NO GROWTH Home Meds Active Reported Loratadine 10 Mg Tablet 10 Mg PO DAILY Prednisone 50 Mg Tab 50 Mg PO DAILY FILLED 11-19-2021 #5/ DAY SUPPLY Clindamycin HCl 300 Mg Capsule 300 Mg PO TID FILLED 11-12-2021 #30/ DAY SUPPLY Assessment/Pt Instructions Follow up with primary physician within a week of discharge. Discharge Instructions Discharge Diet: No Restrictions Activity as Tolerated: Yes Discharge Physical Examination General Appearance: Alert, No Acute Distress Respiratory: Clear to Auscultation, Normal Air Movement Cardiovascular: Regular Rate, No Murmurs Abdominal: Normal Bowel Sounds, Soft, No Tenderness Extremities: No Edema Neuro: Normal Speech Psych/Mental Status: Mood NL Allergies: Coded Allergies: butorphanol (Verified Allergy, Intermediate, ANXIETY, 02/02/19) cephalexin (Unverified Allergy, Mild, 02/02/19) amoxicillin (Verified Allergy, Unknown, 11/19/21) Discharge Summary Date of Admission Nov 19, 2021 at 21:21 Date of Discharge ELBA NINO MD Nov 20, 2021 15:59
== END 2021-11-20 16:20 | disposition home or self-care (01) ==
LOC: EDUNIT# 19:27 → ER 19:28 → 4TH 21:21
PROVIDERS: ADMIT Family Medicine; ATTEND Family Medicine
DX: J18.9 Pneumonia, unspecified organism (principal); D72.829 Elevated white blood cell count, unspecified; R05.9 Cough, unspecified; U09.9 Post COVID-19 condition, unspecified; J06.9 Acute upper respiratory infection, unspecified; A41.9 Sepsis, unspecified organism; N39.0 Urinary tract infection, site not specified; F41.9 Anxiety disorder, unspecified; Z79.899 Other long term (current) drug therapy
CPT/HCPCS: 71046; 80048; 80053; 81000; 83605; 84145; 84703; 85007; 85025; 85027; 85379; 86141; 86308; 87040; 87088; 99284; G0378; 36415

== ENCOUNTER → 2022-01-08 | Outpatient (CLI) | payer MEDICAID ==
[~2022-01-08] MED LIST changes: +BENZ100C18 PO; +CLIN-144 PO; +LEVO750T39 PO; +LORA10TA7 PO; +RT-ALBUTEROL SULF 2.5 MG/3 ML PRE-MIX VIAL INH ONE
== END ==
LOC: RT 14:10
PROVIDERS: ATTEND Nurse Practitioner
DX: R05.3 Chronic cough (principal); Z71.6 Tobacco abuse counseling
CPT/HCPCS: 94060; 94726; 94729

== ENCOUNTER 2022-11-19 09:53 | Emergency (ER) | payer MEDICAID ==
[~2022-11-19] VITALS: Ht 168 cm; Wt 103.0 kg
[~2022-11-19 09:53] MED LIST changes: +LEVO750T PO; -LEVO750T39 PO; -RT-ALBUTEROL SULF 2.5 MG/3 ML PRE-MIX VIAL INH ONE
--- NOTE | 2022-11-19 10:27 | ED Chest Pain ---
General Chief Complaint: Chest Pain Stated Complaint: CHEST PAINS | ABNORMAL EKG Nursing Triage Note: Patient ambulatory to room 07 w c/o chest pain. 5 pain. Patient stated the pain started 2 days ago and radiates into left arm, shoulder and jaw. Patient states she was seen this am by [facility] who sent her to the ER for abnormal EKG Source: patient Exam Limitations: no limitations History of Present Illness Date Seen by Provider: Nov 19, 2022 Time Seen by Provider: 10:10 Initial Comments This 37-year-old woman presents to the emergency room with complaints of inte rmittent chest pain for the past 4 to 5 days. Her most recent episode started about 0830 this morning. It radiates into her neck and left shoulder and arm. It is characterized as a pressure. She reports increased anxiety recently. She denies any shortness of breath. She has not taken any medications for this pain. She asks if her chest pain could be related to anxiety. She has no known cardiovascular disease. Her primary care provider is Josephine Barraza at [facility]. Allergies and Home Medications Allergies Coded Allergies: butorphanol (Verified Allergy, Intermediate, ANXIETY, 02/02/19) cephalexin (Unverified Allergy, Mild, 02/02/19) amoxicillin (Verified Allergy, Unknown, 11/19/21) Patient Home Medication List Home Medication List Reviewed: Yes Benzonatate (Tessalon Perles) 100 Mg Capsule, 100 MG PO TID PRN for COUGH Prescribed by: ELBA NINO on 11/20/21 1559 Levofloxacin (Levofloxacin) 750 Mg Tablet, 750 MG PO DAILY@1100 Prescribed by: ELBA NINO on 11/20/21 1559 Loratadine (Loratadine) 10 Mg Tablet, 10 MG PO DAILY, (Reported) Entered as Reported by: MARILYN MOE on 11/20/21 1333 Prednisone (Prednisone) 50 Mg Tab, 50 MG PO DAILY, (Reported) Entered as Reported by: MARILYN MOE on 11/20/21 1333 Review of Systems Review of Systems Constitutional: no symptoms reported EENTM: No Symptoms Reported Respiratory: No Symptoms Reported Cardiovascular: See HPI Gastrointestinal: No Symptoms Reported Genitourinary: No Symptoms Reported Musculoskeletal: see HPI Skin: no symptoms reported Psychiatric/Neurological: See HPI Endocrine: No Symptoms Reported Hematologic/Lymphatic: No Symptoms Reported Past Swxpgcw-Ktitsu-Qthqaq Hx Patient Social History Tobacco Use?: No Use of E-Cig and/or Vaping dev: Yes E-Cig or Vaping type used: Nicotine Use of E-Cig and/or Vaping Pato: Current Everyday User Substance use?: No Alcohol Use?: Yes Alcohol Frequency: Once in a while Immunizations Up To Date Tetanus Booster (TDap): Unknown First/Initial COVID19 Vaccinat: 04/09 Second COVID19 Vaccination Kirk: 07/10 Third COVID19 Vaccination Date: 04/09 COVID19 Vaccine 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 Sexually Transmitted Disease: No HIV/AIDS: No Genitourinary: No Gastrointestinal: Yes Gastroesophageal Reflux, Gall Bladder Disease Musculoskeletal: Yes Arthritis Endocrine: No HEENT: Yes (GLASSES) Loss of Vision: Bilateral Hearing Impairment: Denies Cancer: No Psychosocial: Yes Anxiety Integumentary: No Blood Disorders: Yes (ANEMIA) Adverse Reaction/Blood Tranf: No (HAS HAD BLOOD WITH NO REACTION) Family Medical History Cancer 03 FATHER (CANCER OF ANTERIOR AND MEDIAL SURFACE OF THE PHARYNGOEPIGLOTTIC FOLD) Family history: Hypertension 03 MOTHER Physical Exam Vital Signs Vital Signs - First Documented 11/19/22 09:55 Temp 36.2 Pulse 56 Resp 18 B/P (MAP) 116/70 (85) Pulse Ox 99 O2 Delivery Room Air Capillary Refill : Less Than 3 Seconds Height, Weight, BMI Height: 5'6.00" Weight: 193lbs. 5.0oz. 87.912402de; 36.00 BMI Method:Stated General Appearance: WD/WN, Mild Distress, Obese, Other (Slightly tearful) HEENT: Normal ENT Inspection Neck: Normal Inspection; No JVD Respiratory: Chest Non Tender, Lungs Clear, Normal Breath Sounds, No Accessory Muscle Use Cardiovascular: Regular Rate, Rhythm, No Edema, No Murmur Gastrointestinal: Non Tender, Soft; No Distended Extremity: Normal Inspection, Non Tender, No Calf Tenderness, No Pedal Edema 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: Alert, Oriented x3, No Motor/Sensory Deficits, Normal Mood/Affect Skin: Normal Color, Warm/Dry Progress/Results/Core Measures Results/Orders Lab Results Laboratory Tests Test 11/19/22 10:05 11/19/22 12:30 Range/Units White Blood Count 12.3 H 4.3-11.0 10^3/uL Red Blood Count 4.77 3.80-5.11 10^6/uL Hemoglobin 14.6 11.5-16.0 g/dL Hematocrit 44 35-52 % Mean Corpuscular Volume 92 80-99 fL Mean Corpuscular Hemoglobin 31 25-34 pg Mean Corpuscular Hemoglobin Concent 33 32-36 g/dL Red Cell Distribution Width 13.2 10.0-14.5 % Platelet Count 204 130-400 10^3/uL Mean Platelet Volume 12.2 9.0-12.2 fL Immature Granulocyte % (Auto) 1 % Neutrophils (%) (Auto) 63 42-75 % Lymphocytes (%) (Auto) 26 12-44 % Monocytes (%) (Auto) 7 0-12 % Eosinophils (%) (Auto) 2 0-10 % Basophils (%) (Auto) 1 0-10 % Neutrophils # (Auto) 7.8 1.8-7.8 10^3/uL Lymphocytes # (Auto) 3.2 1.0-4.0 10^3/uL Monocytes # (Auto) 0.9 0.0-1.0 10^3/uL Eosinophils # (Auto) 0.3 0.0-0.3 10^3/uL Basophils # (Auto) 0.1 0.0-0.1 10^3/uL Immature Granulocyte # (Auto) 0.1 0.0-0.1 10^3/uL Prothrombin Time 13.5 12.2-14.7 SEC INR Comment 1.0 0.8-1.4 Activated Partial Thromboplast Time 31 24-35 SEC Sodium Level 139 135-145 MMOL/L Potassium Level 4.1 3.6-5.0 MMOL/L Chloride Level 109 H 98-107 MMOL/L Carbon Dioxide Level 21 21-32 MMOL/L Anion Gap 9 5-14 MMOL/L Blood Urea Nitrogen 9 7-18 MG/DL Creatinine 0.83 0.60-1.30 MG/DL Estimat Glomerular Filtration Rate 94 BUN/Creatinine Ratio 11 Glucose Level 105 70-105 MG/DL Calcium Level 8.8 8.5-10.1 MG/DL Corrected Calcium 8.6 8.5-10.1 MG/DL Magnesium Level 2.1 1.6-2.4 MG/DL Total Bilirubin 0.7 0.1-1.0 MG/DL Aspartate Amino Transf (AST/SGOT) 28 5-34 U/L Alanine Aminotransferase (ALT/SGPT) 61 H 0-55 U/L Alkaline Phosphatase 74 40-136 U/L Myoglobin 28.9 10.0-92.0 NG/ML Troponin I < 0.028 < 0.028 <0.028 NG/ML Total Protein 7.5 6.4-8.2 GM/DL Albumin 4.3 3.2-4.5 GM/DL TSH [place] Testing 1.30 0.35-4.94 UIU/ML My Orders Orders - CHINTAN VÁSQUEZ MD Ekg Tracing (11/19/22 10:11) Monitor-Rhythm Ecg Trace Only (11/19/22 10:11) Cbc With Automated Diff (11/19/22 10:23) Magnesium (11/19/22 10:23) Chest 1 View, Ap/Pa Only (11/19/22 10:23) Comprehensive Metabolic Panel (11/19/22 10:23) Myoglobin Serum (11/19/22 10:23) Protime With Inr (11/19/22 10:23) Partial Thromboplastin Time (11/19/22 10:23) O2 (11/19/22 10:23) Ed Iv/Invasive Line Start (11/19/22 10:23) Troponin I [place] (11/19/22 10:23) Thyroid Analyzer (11/19/22 10:23) Ketorolac Injection (Toradol Injection) (11/19/22 11:15) Troponin I [place] (11/19/22 12:30) Medications Given in ED Vital Signs/I&O 11/19/22 11/19/22 09:55 13:34 Temp 36.2 Pulse 56 49 Resp 18 18 B/P (MAP) 116/70 (85) 113/77 Pulse Ox 99 97 O2 Delivery Room Air Room Air Blood Pressure Mean: 85 Progress Progress Note : Progress Note Chest pain work-up was pursued. EKG was interpreted by me and demonstrated no ischemic changes or arrhythmia. Chest x-ray report was negative for acute abnormalities. Labs were reviewed by me. CBC demonstrated a minimal leukocytosis. The remainder of the labs including CMP, troponin, repeat troponin, magnesium, and thyroid analyzer were all unremarkable. Patient was treated with Toradol which resolved her pain. See discharge instructions for further discussion. Initial ECG Impression Date: Nov 19, 2022 Initial ECG Impression Time: 10:05 Initial ECG Rate: 54 Initial ECG Rhythm: Normal Sinus Initial ECG Intervals: Normal Initial ECG Impression: Normal Comment Normal sinus rhythm with no ST elevation or depression. No abnormal intervals or axis deviation. Diagnostic Imaging Diagonstic Imaging: Xray Plain Films/CT/US/NM/MRI: chest Comments NAME: KEATON TVAERAS [facility] REC#: [id number] PT STATUS: REG ER : 1985 PHYSICIAN: CHINTAN VÁSQUEZ MD ADMIT DATE: 11/19/22/ER Signed Date of Exam:11/19/22 CHEST 1 VIEW, AP/PA ONLY INDICATION: Chest pain. TECHNIQUE: Frontal chest obtained at 10:44 a.m. and compared to 11/19/2021. FINDINGS: Heart and mediastinal silhouette are normal in appearance. The lungs are clear. There is no pneumothorax or pleural fluid. IMPRESSION: Negative chest. Dictated by: Dictated on workstation # [id number] Dict: 11/19/22 1044 Trans: 11/19/22 1422 AS6 [id number] Interpreted by: DIETER MURPHY MD Electronically signed by: DIETER MURPHY MD 11/19/22 1422 Departure Impression Primary Impression: Atypical chest pain Disposition: 01 HOME, SELF-CARE Condition: Improved Departure-Patient Inst. Decision time for Depature: 13:25 Referrals: [facility] (PCP/Family) Primary Care Physician Patient Instructions: Chest Pain That Is Not Caused by the Heart (DC) Add. Discharge Instructions: Follow-up with your primary care provider as soon as possible. For further chest pain try taking ibuprofen up to 600 mg every 6 hours as needed. Take ibuprofen with food or milk to avoid stomach upset. Add Tylenol (acetaminophen) up to 1000 mg every 6 hours as needed for additional pain re lief. If you have significant pain that is not relieved by flfn-qec-evxfanb medications or if you develop additional associated symptoms such as shortness of breath, lightheadedness, sweats, vomiting, etc. please return to the emergency room. All discharge instructions reviewed with patient and/or family. Voiced understanding. Copy Copies To 1: [facility]/CHINTAN SOLIS MD Nov 19, 2022 10:27
[2022-11-19 10:32] LABS: BASOPHILS # (AUTO) 0.1 10^3/uL (0.0-0.1); BASOPHILS % (AUTO) 1 % (0-10); EOSINOPHILS # (AUTO) 0.3 10^3/uL (0.0-0.3); EOSINOPHILS % (AUTO) 2 % (0-10); HEMATOCRIT 44 % (35-52); HEMOGLOBIN 14.6 g/dL (11.5-16.0); LYMPHOCYTES # (AUTO) 3.2 10^3/uL (1.0-4.0); LYMPHOCYTES % (AUTO) 26 % (12-44); MEAN CORPUSCULAR HEMOGLOBIN 31 pg (25-34); MEAN CORPUSCULAR HGB CONC 33 g/dL (32-36); MEAN CORPUSCULAR VOLUME 92 fL (80-99); MEAN PLATELET VOLUME 12.2 fL (9.0-12.2); MONOCYTES # (AUTO) 0.9 10^3/uL (0.0-1.0); MONOCYTES % (AUTO) 7 % (0-12); NEUTROPHILS # (AUTO) 7.8 10^3/uL (1.8-7.8); NEUTROPHILS % (AUTO) 63 % (42-75); PLATELET COUNT 204 10^3/uL (130-400); WHITE BLOOD COUNT 12.3 10^3/uL (4.3-11.0)
[2022-11-19 10:36] LABS: ALBUMIN 4.3 GM/DL (3.2-4.5); POTASSIUM 4.1 MMOL/L (3.6-5.0)
[2022-11-19 10:38] LABS: CALCIUM 8.8 MG/DL (8.5-10.1)
[2022-11-19 10:39] LABS: PROTHROMBIN TIME PATIENT 13.5 SEC (12.2-14.7); TOTAL PROTEIN 7.5 GM/DL (6.4-8.2)
[2022-11-19 10:41] LABS: BILIRUBIN,TOTAL 0.7 MG/DL (0.1-1.0)
[2022-11-19 10:42] LABS: CREATININE SERUM 0.83 MG/DL (0.60-1.30)
[2022-11-19 10:45] LABS: MAGNESIUM 2.1 MG/DL (1.6-2.4)
--- NOTE | 2022-11-19 10:47 | Diagnostic Imaging Report ---
INDICATION: Chest pain. TECHNIQUE: Frontal chest obtained at 10:44 a.m. and compared to 11/19/2021. FINDINGS: Heart and mediastinal silhouette are normal in appearance. The lungs are clear. There is no pneumothorax or pleural fluid. IMPRESSION: Negative chest. Dictated by: Dictated on workstation # [id number]
[2022-11-19] MEDS ORDERED: KETOROLAC 30 MG/ML VIAL IVP ONE (11:15)
[2022-11-19 13:34] VITALS: BP 113/77
== END 2022-11-19 13:34 | disposition home or self-care (01) ==
LOC: EDUNIT# 09:53 → ER 09:55
DX: R07.89 Other chest pain (principal); D72.829 Elevated white blood cell count, unspecified; F17.290 Nicotine dependence, other tobacco product, uncomplicated
CPT/HCPCS: 36415; 71045; 80053; 83735; 83874; 84443; 84484; 85025; 85610; 85730; 93005; 93041

== ENCOUNTER 2022-11-24 15:00 | Emergency (ER) | payer MEDICAID ==
[~2022-11-24] VITALS: Ht 167.7 cm; Wt 102.9 kg
--- NOTE | 2022-11-24 15:36 | ED Cough/URI ---
General Chief Complaint: Cough/Cold/Flu Symptoms Stated Complaint: SORE THROAT | COUGH | FEVER Nursing Triage Note: PT AMB TO FT2 WITH COMPLAINT OF COUGH, SORE THROAT, HEADACHE, AND FEVER. WAS DIAG[facility] WITH [facility]P ON [facility] AND PRESCRIBED ZITHROMAX AND TESSALON PEARLS. STATES IS NOT FEELING BETTER. History of Present Illness Date Seen by Provider: Nov 24, 2022 Time Seen by Provider: 15:20 Initial Comments 37-year-old female reports headache, cough, sore throat and fever. She was diagnosed with strep pharyngitis 3 days ago. She has taken 3 doses of her azithromycin and is not feeling any better. She denies frequent infections with pharyngitis. She she last had Tylenol at approximately 0900 today. She is worried because she has been septic before. Assure her, VS do not show risk factors for that. Timing/Duration: getting worse Severity/Quality: mild, productive cough Prior Episodes/Possible Cause: occasional episodes Associated Symptoms: cough, fever/chills, muscle aches Allergies and Home Medications Allergies Coded Allergies: butorphanol (Verified Allergy, Intermediate, ANXIETY, 02/02/19) cephalexin (Unverified Allergy, Mild, 02/02/19) amoxicillin (Verified Allergy, Unknown, 11/19/21) Patient Home Medication List Home Medication List Reviewed: Yes Amoxicillin/Potassium Clav (Amox Tr-K Clv 875-125 mg Tab) 875 Mg-125 Mg Tablet, 1 EACH PO BID Prescribed by: ADRIANA JACINTO on 11/24/22 1735 Benzonatate (Tessalon Perles) 100 Mg Capsule, 100 MG PO TID PRN for COUGH Prescribed by: ELBA NINO on 11/20/21 1559 Dexamethasone (Dexamethasone) 6 Mg Tablet, 6 MG PO DAILY Prescribed by: ADRIANA JACINTO on 11/24/22 1735 Levofloxacin (Levofloxacin) 750 Mg Tablet, 750 MG PO DAILY@1100 Prescribed by: ELBA NINO on 11/20/21 1559 Loratadine (Loratadine) 10 Mg Tablet, 10 MG PO DAILY, (Reported) Entered as Reported by: MARILYN MOE on 11/20/21 133 Prednisone (Prednisone) 50 Mg Tab, 50 MG PO DAILY, (Reported) Entered as Reported by: MARILYN MOE on 11/20/21 1333 Review of Systems Review of Systems Constitutional: see HPI, fever EENTM: see HPI, throat pain Respiratory: see HPI, cough, phlegm Gastrointestinal: see HPI, loss of appetite Genitourinary: no symptoms reported, see HPI All Other Systems Reviewed Negative Unless Noted: Yes Past Ukaqbvi-Noqapr-Fznmgd Hx Patient Social History Tobacco Use?: No Use of E-Cig and/or Vaping dev: No Substance use?: No Alcohol Use?: No Pt feels they are or have been: No Immunizations Up To Date Tetanus Booster (TDap): Unknown First/Initial COVID19 Vaccinat: 04/09 Second COVID19 Vaccination Kirk: 07/10 Third COVID19 Vaccination Date: 04/09 Seasonal Allergies Seasonal Allergies: No Past Medical History Surgery/Hospitalization HX: SX: HYST, GALLBLADDER, HERNIA REPAIR, hysterectomy, tubal, c-sect. 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 Sexually Transmitted Disease: No HIV/AIDS: No Genitourinary: No Gastrointestinal: Yes Gastroesophageal Reflux, Gall Bladder Disease Musculoskeletal: Yes Arthritis Endocrine: No HEENT: Yes (GLASSES) Loss of Vision: Bilateral Hearing Impairment: Denies Cancer: No Psychosocial: Yes Anxiety Integumentary: No Blood Disorders: Yes (ANEMIA) Adverse Reaction/Blood Tranf: No (HAS HAD BLOOD WITH NO REACTION) Family Medical History Reviewed Nursing Family Hx Cancer 03 FATHER (CANCER OF ANTERIOR AND MEDIAL SURFACE OF THE PHARYNGOEPIGLOTTIC FOLD) Family history: Hypertension 03 MOTHER Physical Exam Vital Signs - First Documented 11/24/22 15:16 Temp 38.3 Pulse 105 Resp 20 B/P (MAP) 129/84 (99) Pulse Ox 96 O2 Delivery Room Air Capillary Refill : Less Than 3 Seconds Height: 5'6.00" Weight: 193lbs. 5.0oz. 87.496340lr; 36.00 BMI Method:Stated General Appearance: WD/WN, no apparent distress HEENT: PERRL/EOMI, TM abnormal (R) (Erythema and TM bulging), TM abnormal (L) (Erythema and TM bulging), pharyngeal erythema; No tonsillar exudate Neck: non-tender, full range of motion, supple, normal inspection; No lymphadenopathy (R) Respiratory: chest non-tender, lungs clear, normal breath sounds; No decreased breath sounds Cardiovascular: normal peripheral pulses, regular rate, rhythm, no edema Gastrointestinal: normal bowel sounds, non tender, soft 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: no motor/sensory deficits, alert, normal mood/affect, oriented x 3 Skin: normal color; No rash Progress/Results/Core Measures Suspected Sepsis Recent Fever Within 48 Hours: Yes Infection Criteria Present: Suspected New Infection New/Unexplained Altered Menta: No Within 3hrs of presentation: Admin fluids, Admin ABX, D/C Instructions given to patient, Focus exam SIRS Temperature: Pulse: 105 Respiratory Rate: 20 Laboratory Tests 11/24/22 16:57: White Blood Count 8.9 Blood Pressure 129 /84 Mean: 99 Laboratory Tests 11/24/22 16:57: Creatinine 0.81, Platelet Count 170, Total Bilirubin 0.5 Results/Orders Lab Results Laboratory Tests Test 11/24/22 15:45 11/24/22 16:57 Range/Units Influenza Type A (RT-PCR) Not Detected Not Detecte Influenza Type B (RT-PCR) Not Detected Not Detecte SARS-CoV-2 RNA (RT-PCR) Not Detected Not Detecte White Blood Count 8.9 4.3-11.0 10^3/uL Red Blood Count 4.32 3.80-5.11 10^6/uL Hemoglobin 13.2 11.5-16.0 g/dL Hematocrit 39 35-52 % Mean Corpuscular Volume 90 80-99 fL Mean Corpuscular Hemoglobin 31 25-34 pg Mean Corpuscular Hemoglobin Concent 34 32-36 g/dL Red Cell Distribution Width 13.1 10.0-14.5 % Platelet Count 170 130-400 10^3/uL Mean Platelet Volume 11.8 9.0-12.2 fL Immature Granulocyte % (Auto) 1 % Neutrophils (%) (Auto) 78 H 42-75 % Lymphocytes (%) (Auto) 11 L 12-44 % Monocytes (%) (Auto) 9 0-12 % Eosinophils (%) (Auto) 1 0-10 % Basophils (%) (Auto) 1 0-10 % Neutrophils # (Auto) 6.9 1.8-7.8 10^3/uL Lymphocytes # (Auto) 0.9 L 1.0-4.0 10^3/uL Monocytes # (Auto) 0.8 0.0-1.0 10^3/uL Eosinophils # (Auto) 0.1 0.0-0.3 10^3/uL Basophils # (Auto) 0.1 0.0-0.1 10^3/uL Immature Granulocyte # (Auto) 0.1 0.0-0.1 10^3/uL Sodium Level 137 135-145 MMOL/L Potassium Level 3.7 3.6-5.0 MMOL/L Chloride Level 110 H 98-107 MMOL/L Carbon Dioxide Level 20 L 21-32 MMOL/L Anion Gap 7 5-14 MMOL/L Blood Urea Nitrogen 6 L 7-18 MG/DL Creatinine 0.81 0.60-1.30 MG/DL Estimat Glomerular Filtration Rate 97 BUN/Creatinine Ratio 7 Glucose Level 93 70-105 MG/DL Calcium Level 8.1 L 8.5-10.1 MG/DL Corrected Calcium 8.4 L 8.5-10.1 MG/DL Total Bilirubin 0.5 0.1-1.0 MG/DL Aspartate Amino Transf (AST/SGOT) 41 H 5-34 U/L Alanine Aminotransferase (ALT/SGPT) 74 H 0-55 U/L Alkaline Phosphatase 67 40-136 U/L Total Protein 6.5 6.4-8.2 GM/DL Albumin 3.6 3.2-4.5 GM/DL My Orders Orders - ADRIANA JACINTO Ibuprofen Tablet (Motrin Tablet) (11/24/22 15:37) Influenza A And B By Pcr (11/24/22 15:45) Covid 19 Inhouse Test (11/24/22 15:45) Ed Iv/Invasive Line Start (11/24/22 16:15) Ns Iv 1000 Ml (Sodium Chloride 0.9%) (11/24/22 16:15) Cbc With Automated Diff (11/24/22 16:53) Comprehensive Metabolic Panel (11/24/22 16:53) Chest 1 View, Ap/Pa Only (11/24/22 16:53) Dexamethasone Injection (Decadron Inje (11/24/22 17:00) Albuterol Inhaler (Albuterol) (11/24/22 18:00) Albuterol Inhaler (Albuterol) (11/24/22 17:00) Medications Given in ED Current Medications Medications Dose Ordered Sig/Alysa Route Start Time Stop Time Status Last Admin Dose Admin Dexamethasone Sodium Phosphate 10 mg ONCE ONCE IV 11/24/22 17:00 11/24/22 17:01 DC 11/24/22 17:02 10 MG Vital Signs/I&O 11/24/22 11/24/22 15:16 17:50 Temp 38.3 38.3 Pulse 105 90 Resp 20 16 B/P (MAP) 129/84 (99) 124/84 Pulse Ox 96 98 O2 Delivery Room Air Room Air Capillary Refill : Less Than 3 Seconds Blood Pressure Mean: 99 Progress Note : Time: 15:20 Progress Note Patient seen and evaluated. Ibuprofen 800 mg and 2 cups of water given. 1600 patient reports she is feeling too sick to drink her water. Will give normal saline 1 L per IV. Will check labs and chest x-ray. 1700 patient reassured labs and chest x-ray are normal. 1730 She reports feeling better after receiving fluids. Will give her Decadron 10 mg IV and plan discharge. Return precautions reviewed with her. Diagnostic Imaging Diagonstic Imaging: Xray Plain Films/CT/US/NM/MRI: chest Comments [facility] [place] NAME: KEATON TAVERAS [facility] REC#: [id number] PT STATUS: REG ER : 1985 PHYSICIAN: ADRIANA JACINTO ADMIT DATE: 11/24/22/ER Signed Date of Exam:11/24/22 CHEST 1 VIEW, AP/PA ONLY INDICATION: Cough, congestion. COMPARISON: 11/19/2022. FINDINGS: No focal consolidation, failure pattern, effusion, or pneumothorax. IMPRESSION: No acute-appearing abnormality. Dictated by: Dictated on workstation # [id number] Dict: 11/24/221708 Trans: 11/24/221712 AS6 [id number] Interpreted by: MAULIK PATTERSON Electronically signed by: MAULIK PATTERSON 11/24/221712 Reviewed: Reviewed by Me Departure Impression Primary Impression: Strep pharyngitis Additional Impression: Bronchitis Disposition: HOME, SELF-CARE Condition: Improved Departure-Patient Inst. Decision time for Depature: 17:15 Referrals: [facility] (PCP/Family) Primary Care Physician Patient Instructions: Acute Bronchitis, Adult (DC), Viral Upper Respiratory Infection, Adult (DC) Add. Discharge Instructions: Increase water intake, 16 oz every 2 hours, while awake. Take Muccinex 600 mg every 12 hours with full glass of water. Take antibiotics and steroids as prescribed. Use inhaler ever 4-6 hours. [facility]4 days, sooner if you are not improving. Return to emergency dept if symptoms worsen. All discharge instructions reviewed with patient and/or family. Voiced understanding. Scripts Amoxicillin/Potassium Clav (Amox Tr-K Clv 875-125 mg Tab) 875 Mg-125 Mg Tablet 1 EACH PO BID, #20 TAB 0 Refills Prov: ADRIANA JACINTO 11/24/22 Dexamethasone (Dexamethasone) 6 Mg Tablet 6 MG PO DAILY, #6 TAB Prov: ADRIANA JACINTO 11/24/22 Work/School Note: Work Release Form Date Seen in the Emergency Department: Nov 24, 2022 Return to Work: Nov 26, 2022 Restrictions: No Restrictions ADRIANA JACINTO Nov 24, 2022 15:36
[2022-11-24] MEDS ORDERED: IBUPROFEN TABLET 200 MG TAB PO STA (15:37)
[2022-11-24] MEDS ORDERED: NS IV 1000 ML 1,000 ML IV SCH (16:15)
[2022-11-24] MEDS ORDERED: RT-ALBUTEROL HFA 8.5 GM INHALER IH ONE (17:00)
[2022-11-24 17:02] LABS: BASOPHILS # (AUTO) 0.1 10^3/uL (0.0-0.1); BASOPHILS % (AUTO) 1 % (0-10); EOSINOPHILS # (AUTO) 0.1 10^3/uL (0.0-0.3); EOSINOPHILS % (AUTO) 1 % (0-10); HEMATOCRIT 39 % (35-52); HEMOGLOBIN 13.2 g/dL (11.5-16.0); LYMPHOCYTES # (AUTO) 0.9 10^3/uL (1.0-4.0); LYMPHOCYTES % (AUTO) 11 % (12-44); MEAN CORPUSCULAR HEMOGLOBIN 31 pg (25-34); MEAN CORPUSCULAR HGB CONC 34 g/dL (32-36); MEAN CORPUSCULAR VOLUME 90 fL (80-99); MEAN PLATELET VOLUME 11.8 fL (9.0-12.2); MONOCYTES # (AUTO) 0.8 10^3/uL (0.0-1.0); MONOCYTES % (AUTO) 9 % (0-12); NEUTROPHILS # (AUTO) 6.9 10^3/uL (1.8-7.8); NEUTROPHILS % (AUTO) 78 % (42-75); PLATELET COUNT 170 10^3/uL (130-400); WHITE BLOOD COUNT 8.9 10^3/uL (4.3-11.0)
[2022-11-24 17:10] LABS: ALBUMIN 3.6 GM/DL (3.2-4.5); POTASSIUM 3.7 MMOL/L (3.6-5.0)
--- NOTE | 2022-11-24 17:11 | Diagnostic Imaging Report ---
INDICATION: Cough, congestion. COMPARISON: 11/19/2022. FINDINGS: No focal consolidation, failure pattern, effusion, or pneumothorax. IMPRESSION: No acute-appearing abnormality. Dictated by: Dictated on workstation # [id number]
[2022-11-24 17:12] LABS: CALCIUM 8.1 MG/DL (8.5-10.1)
[2022-11-24 17:13] LABS: TOTAL PROTEIN 6.5 GM/DL (6.4-8.2)
[2022-11-24 17:15] LABS: BILIRUBIN,TOTAL 0.5 MG/DL (0.1-1.0)
[2022-11-24 17:17] LABS: CREATININE SERUM 0.81 MG/DL (0.60-1.30)
[2022-11-24] MEDS ORDERED: AMOX1TAB12 PO (17:35)
[2022-11-24] MEDS ORDERED: DEXA6TAB PO (17:35)
[2022-11-24 17:50] VITALS: BP 124/84
[2022-11-24] MEDS ORDERED: RT-ALBUTEROL HFA 8.5 GM INHALER IH SCH (18:00)
== END 2022-11-24 17:54 | disposition home or self-care (01) ==
LOC: EDUNIT# 15:00 → ER 15:01
DX: J02.0 Streptococcal pharyngitis (principal); J40 Bronchitis, not specified as acute or chronic; Z86.16 Personal history of COVID-19; Z88.0 Allergy status to penicillin; Z88.1 Allergy status to other antibiotic agents; Z20.822 Contact with and (suspected) exposure to COVID-19
CPT/HCPCS: 36415; 71045; 80053; 85025; 87636

== ENCOUNTER 2022-12-07 02:33 | Emergency (ER) | payer MEDICAID ==
[~2022-12-07] VITALS: Ht 167.7 cm; Wt 103.0 kg
[~2022-12-07 02:33] MED LIST changes: +AMOX1TAB12 PO; +DEXA6TAB PO
[2022-12-07] MEDS ORDERED: LEVA15HF5 (02:44)
[2022-12-07 02:52] LABS: BILIRUBIN,URINE NEGATIVE (NEGATIVE); CLARITY,URINE SL CLOUDY; COLOR,URINE YELLOW; GLUCOSE, URINE (UA) NEGATIVE (NEGATIVE); KETONES,URINE NEGATIVE (NEGATIVE); LEUKOCYTE ESTERASE ,URINE 1+ (NEGATIVE); NITRITE,URINE NEGATIVE (NEGATIVE); PROTEIN,URINE TRACE (NEGATIVE)
[2022-12-07 03:00] LABS: BACTERIA,URINE TRACE /HPF; RBC,URINE RARE /HPF
[2022-12-07] MEDS ORDERED: fentaNYL INJ 100 MCG/2 ML AMP IVP ONE (04:00)
--- NOTE | 2022-12-07 04:01 | ED Abdominal Pain ---
General Chief Complaint: - 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 Stated Complaint: LEFT SIDE PAIN Nursing Triage Note: C/O BILATERAL FLANK PAIN SINCE WEDNESDAY, LEFT FLANK PAIN TODAY. CONCERNED FOR UTI Source of Information: Patient Exam Limitations: No Limitations History of Present Illness Date Seen by Provider: Dec 07, 2022 Time Seen by Provider: 02:38 Initial Comments This 37-year-old woman presents to the emergency room with a constant pain with waxing and waning intensity in the left lower back through the flank and into the left lower abdomen. Symptoms have been present for 3 days. She denies any nausea and vomiting but she has had diarrhea. She is uncertain if this is related to her surgically absent gallbladder, recent antibiotic use, or acute illness. She took Tylenol at 2100 without improvement in her pain. She tried Pyridium as well which was not helpful. She has been afebrile. She has not noted any hematochezia or hematuria. Allergies and Home Medications Allergies Coded Allergies: butorphanol (Verified Allergy, Intermediate, ANXIETY, 02/02/19) cephalexin (Unverified Allergy, Mild, Rash, 12/07/22) amoxicillin (Verified Allergy, Unknown, 11/19/21) Patient Home Medication List Home Medication List Reviewed: Yes Lactobacillus Combination No.4 (Probiotic) 3 Billion Cell Capsule, 1 EACH PO TID Prescribed by: CHINTAN OBANDO on 12/07/22652 Levalbuterol Tartrate (Levalbuterol Tartrate Hfa) 45 Mcg/Actuation Hfa.aer.ad, (Reported) Entered as Reported by: REJI PAREDES on 12/07/22 0244 Last Action: New Order Levofloxacin (Levofloxacin) 750 Mg Tablet, 750 MG PO DAILY@1100 Prescribed by: ELBA NINO on 11/20/21 1559 Loratadine (Loratadine) 10 Mg Tablet, 10 MG PO DAILY, (Reported) Entered as Reported by: MARILYN MOE on 11/20/21 1333 Nitrofurantoin Monohyd/M-Cryst (Macrobid 100 mg Capsule) 100 Mg Capsule, 1 TAB PO BID Prescribed by: CHINTAN OBANDO on 12/07/22 0653 Vancomycin HCl (Vancomycin HCl) 125 Mg Capsule, 125 MG PO QID Prescribed by: CHINTAN OBANDO on 12/07/22 0653 Discontinued Medications Amoxicillin/Potassium Clav (Amox Tr-K Clv 875-125 mg Tab) 875 Mg-125 Mg Tablet, 1 EACH PO BID Discontinued Reason: No Longer Taking Prescribed by: ADRIANA JACINTO on 11/24/221734 Last Action: Discontinued Benzonatate (Tessalon Perles) 100 Mg Capsule, 100 MG PO TID PRN for COUGH Discontinued Reason: No Longer Taking Prescribed by: ELBA NINO on 11/20/21 5599 Last Action: Discontinued Dexamethasone (Dexamethasone) 6 Mg Tablet, 6 MG PO DAILY Discontinued Reason: No Longer Taking Prescribed by: ADRIANA JACINTO on 11/24/221734 Last Action: Discontinued Prednisone (Prednisone) 50 Mg Tab, 50 MG PO DAILY, (Reported) Discontinued Reason: No Longer Taking Entered as Reported by: MARILYN MOE on 11/20/21 1333 Last Action: Discontinued Review of Systems Review of Systems Constitutional: no symptoms reported EENTM: No Symptoms Reported Respiratory: No Symptoms Reported Cardiovascular: No Symptoms Reported Gastrointestinal: See HPI Genitourinary: See HPI Musculoskeletal: no symptoms reported Skin: no symptoms reported Psychiatric/Neurological: No Symptoms Reported Endocrine: No Symptoms Reported Hematologic/Lymphatic: No Symptoms Reported Past Qrtxmjm-Ecvhiw-Mducpl Hx Patient Social History Tobacco Use?: No Substance use?: No Alcohol Use?: No Pt feels they are or have been: No Immunizations Up To Date Tetanus Booster (TDap): Unknown First/Initial COVID19 Vaccinat: 04/09 Second COVID19 Vaccination Kirk: 07/10 Third COVID19 Vaccination Date: 04/09 Seasonal Allergies Seasonal Allergies: No Past Medical History Surgery/Hospitalization HX: SX: HYST, GALLBLADDER, HERNIA REPAIR, hysterectomy, tubal, c-sect. 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 Sexually Transmitted Disease: No HIV/AIDS: No Genitourinary: Yes (History of severe urinary tract infection) Gastrointestinal: Yes Gastroesophageal Reflux, Gall Bladder Disease Musculoskeletal: Yes Arthritis Endocrine: No HEENT: Yes (GLASSES) Loss of Vision: Bilateral Hearing Impairment: Denies Cancer: No Psychosocial: Yes Anxiety Integumentary: No Blood Disorders: Yes (ANEMIA) Adverse Reaction/Blood Tranf: No (HAS HAD BLOOD WITH NO REACTION) Family Medical History Cancer 03 FATHER (CANCER OF ANTERIOR AND MEDIAL SURFACE OF THE PHARYNGOEPIGLOTTIC FOLD) Family history: Hypertension 03 MOTHER Physical Exam Vital Signs Vital Signs - First Documented 12/07/22 02:40 Temp 36.2 Pulse 113 Resp 18 B/P (MAP) 123/106 (112) Pulse Ox 97 O2 Delivery Room Air Capillary Refill : Less Than 3 Seconds Height/Weight/BMI Height: 5'6.00" Weight: 193lbs. 5.0oz. 87.550258ln; 36.00 BMI Method:Stated General Appearance: WD/WN, mild distress HEENT: normal ENT inspection Neck: normal inspection Respiratory: lungs clear, normal breath sounds, no respiratory distress Cardiovascular: no edema, no murmur, tachycardia Gastrointestinal: normal bowel sounds, soft, tenderness (Through the left flank and into the left lower abdomen) Extremities: normal inspection, no pedal edema 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: alert, normal mood/affect, oriented x 3 Skin: normal color, warm/dry Progress/Results/Core Measures Results/Orders Lab Results Laboratory Tests Test 12/07/22 02:42 12/07/22 04:04 Range/Units Urine Color YELLOW Urine Clarity SL CLOUDY Urine pH 7.0 5-9 Urine Specific [place] 1.015 L 1.016-1.022 Urine Protein TRACE H NEGATIVE Urine Glucose (UA) NEGATIVE NEGATIVE Urine Ketones NEGATIVE NEGATIVE Urine Nitrite NEGATIVE NEGATIVE Urine Bilirubin NEGATIVE NEGATIVE Urine Urobilinogen 1.0 < = 1.0 MG/DL Urine Leukocyte Esterase 1+ H NEGATIVE Urine RBC (Auto) TRACE-I H NEGATIVE Urine RBC RARE /HPF Urine WBC 5-10 H /HPF Urine Squamous Epithelial Cells 2-5 /HPF Urine Crystals NONE /LPF Urine Bacteria TRACE /HPF Urine Casts NONE /LPF Urine Mucus NEGATIVE /LPF Urine Culture Indicated YES White Blood Count 19.0 H 4.3-11.0 10^3/uL Red Blood Count 4.55 3.80-5.11 10^6/uL Hemoglobin 14.1 11.5-16.0 g/dL Hematocrit 41 35-52 % Mean Corpuscular Volume 91 80-99 fL Mean Corpuscular Hemoglobin 31 25-34 pg Mean Corpuscular Hemoglobin Concent 34 32-36 g/dL Red Cell Distribution Width 13.2 10.0-14.5 % Platelet Count 235 130-400 10^3/uL Mean Platelet Volume 11.3 9.0-12.2 fL Immature Granulocyte % (Auto) 1 % Neutrophils (%) (Auto) 79 H 42-75 % Lymphocytes (%) (Auto) 13 12-44 % Monocytes (%) (Auto) 7 0-12 % Eosinophils (%) (Auto) 1 0-10 % Basophils (%) (Auto) 0 0-10 % Neutrophils # (Auto) 14.9 H 1.8-7.8 10^3/uL Lymphocytes # (Auto) 2.4 1.0-4.0 10^3/uL Monocytes # (Auto) 1.3 H 0.0-1.0 10^3/uL Eosinophils # (Auto) 0.1 0.0-0.3 10^3/uL Basophils # (Auto) 0.1 0.0-0.1 10^3/uL Immature Granulocyte # (Auto) 0.2 H 0.0-0.1 10^3/uL Neutrophils % (Manual) 80 % Lymphocytes % (Manual) 13 % Monocytes % (Manual) 6 % Eosinophils % (Manual) 1 % Blood Morphology Comment NORMAL Sodium Level 138 135-145 MMOL/L Potassium Level 4.1 3.6-5.0 MMOL/L Chloride Level 107 98-107 MMOL/L Carbon Dioxide Level 20 L 21-32 MMOL/L Anion Gap 11 5-14 MMOL/L Blood Urea Nitrogen 9 7-18 MG/DL Creatinine 0.90 0.60-1.30 MG/DL Estimat Glomerular Filtration Rate 85 BUN/Creatinine Ratio 10 Glucose Level 118 H 70-105 MG/DL Calcium Level 9.1 8.5-10.1 MG/DL Corrected Calcium 9.1 8.5-10.1 MG/DL Total Bilirubin 1.0 0.1-1.0 MG/DL Aspartate Amino Transf (AST/SGOT) 21 5-34 U/L Alanine Aminotransferase (ALT/SGPT) 51 0-55 U/L Alkaline Phosphatase 81 40-136 U/L C-Reactive Protein High Sensitivity 4.46 H 0.00-0.50 MG/DL Total Protein 7.5 6.4-8.2 GM/DL Albumin 4.0 3.2-4.5 GM/DL Lipase 46 8-78 U/L Micro Results Microbiology 12/07/22 Urine Culture - Preliminary, Resulted Escherichia coli My Orders Orders - CHINTAN VÁSQUEZ MD Ua Culture If Indicated (12/07/22 02:38) Urine Culture (12/07/22 02:42) Cbc With Automated Diff (12/07/22 03:58) Comprehensive Metabolic Panel (12/07/22 03:58) Hs C Reactive Protein (12/07/22 03:58) Lipase (12/07/22 03:58) Ed Iv/Invasive Line Start (12/07/22 03:58) Fentanyl Inj (Sublimaze Injection) (12/07/22 04:00) Manual Differential (12/07/22 04:04) Ct Abdomen/Pelvis W (12/07/22 04:47) Morphine Injection (Morphine Injection (12/07/22 04:49) Iohexol Injection (Omnipaque 350 Mg/Ml 1 (12/07/22 05:45) Received Contrast (Hold Metformin- Contr (12/07/22 05:45) Ns (Ivpb) (Sodium Chloride 0.9% Ivpb Bag (12/07/22 05:45) Ketorolac Injection (Toradol Injection) (12/07/22 06:45) Medications Given in ED Vital Signs/I&O 12/07/22 12/07/22 12/07/22 02:40 04:08 06:59 Temp 36.2 36.2 36.7 Pulse 113 87 Resp 18 16 B/P (MAP) 123/106 (112) 107/67 Pulse Ox 97 99 O2 Delivery Room Air Room Air Blood Pressure Mean: 112 Progress Progress Note #1: Time: 04:50 Progress Note Patient was interviewed and examined. She was found to have notable tenderness throughout the left flank and extending into the left lower quadrant. She had lesser tenderness on the right lower abdomen. Labs were obtained including CBC, CMP, lipase, CRP, and urinalysis. There was a small amount of WBC presence in the urine, but this did not seem significant enough to explain her pain. All labs were reviewed in their entirety. CBC demonstrated a significant elevation in WBC of 19,000. CRP was modestly elevated. These findings prompted CT of the abdomen and pelvis. Patient was treated with fentanyl for pain management. This did little to improve her pain. She is additionally being treated with morphine at this time. Progress Note #2: Progress Note CT abdomen and pelvis revealed not definite cause for her pain. Because of multiple recent antibiotics, C-Diff is of concern. She is being presumptively treated. Macrobid was prescribed for UTI. Macrobid should be less likely to exacerbated C-Diff. Probiotics were also prescribed. She was provided with an order form for stool study collection. Diagnostic Imaging Diagonstic Imaging: CT Plain Films/CT/US/NM/MRI: abdomen, pelvis Comments NAME: KEATON TAVERAS [facility] REC#: [id number] PT STATUS: REG ER : 1985 PHYSICIAN: CHINTAN VÁSQUEZ MD ADMIT DATE: 12/07/22/ER Signed Date of Exam:12/07/22 CT ABDOMEN/PELVIS W CT ABDOMEN/PELVIS W TECHNIQUE: Multiple contiguous axial images were obtained through the abdomen and pelvis after administration of intravenous contrast. All CT scans use one or more of the following dose optimizing techniques: automated exposure control, MA and/or KvP adjustment based on patient size and exam type or iterative reconstruction. INDICATION: Left flank pain COMPARISON: None available. FINDINGS: Lower chest: The lung bases are clear. No pericardial or pleural effusion. Peritoneum: No free intraperitoneal air or fluid. Liver and biliary system: Liver is enlarged measuring 20 cm and has diffuse hypoattenuation indicative of steatosis. No focal hepatic lesion is appreciated. Cholecystectomy. Spleen and Pancreas: Spleen is normal. The pancreas enhances normally without mass lesion or peripancreatic inflammatory changes. Adrenals: Normal. tract: The kidneys enhance normally without suspicious mass or obstruction. Urinary bladder is distended without wall thickening. Hysterectomy. No adnexal mass. GI tract: Stomach is decompressed. No bowel obstruction. No pericolonic inflammatory changes. Normal appendix. Vasculature and Lymph nodes: Normal caliber aorta. No abdominal or pelvic lymphadenopathy. Musculoskeletal: No concerning osseous lesion. IMPRESSION: 1. No acute intrapelvic process. 2. Hepatomegaly with diffuse steatosis. Dictated by: Dictated on workstation # [id number] Dict: 12/07/22 0559 Trans: 12/07/22 0600 [facility] [id number] Interpreted by: MALU BRITT MD Electronically signed by: MALU BRITT MD 12/07/22 0600 Departure Impression Primary Impression: Left flank pain Additional Impressions: Left sided abdominal pain of unknown cause Diarrhea Qualified Codes: R19.7 - Diarrhea, unspecified Urinary tract infection Qualified Codes: N39.0 - Urinary tract infection, site not specified Disposition: 01 HOME, SELF-CARE Condition: Stable Departure-Patient Inst. Decision time for Depature: 06:44 Referrals: AIDEN CHUN APRN (PCP) Primary Care Physician [facility]/CHARLENE (Family) Primary Care Physician Patient Instructions: Flank Pain ED, Severe Abdominal Pain, Urinary Tract Infection, Adult ED Add. Discharge Instructions: The exact cause of your abdominal and flank pain is uncertain. Due to the presence of diarrhea and multiple rounds of strong antibiotics, C. difficile is a possibility. You are being prescribed vancomycin and probiotics to treat possible C. difficile. Please bring in a fresh stool specimen as soon as possible along with the outpatient order provided. Please place your name, date of , and date and time of collection on the specimen cup when you bring it back to the hospital. You may take ibuprofen up to 600 mg every 6 hours as needed for pain. Add hydrocodone as prescribed for pain not controlled by ibuprofen. Also, please take Macrobid as prescribed for possible urinary tract infection. Start with a clear liquid diet and drink plenty of clear liquids to stay well-hydrated. Gradually advance your diet with small quantities of bland food as tolerated. Avoid fatty or greasy foods until a few days after symptoms have resolved. Please follow-up with your primary care provider midweek to review urine and stool culture results. All discharge instructions reviewed with patient and/or family. Voiced understanding. Scripts Nitrofurantoin Monohyd/M-Cryst (Macrobid 100 mg Capsule) 100 Mg Capsule 1 TAB PO BID, #14 CAP Prov: CHINTAN VÁSQUEZ MD 12/07/22 Lactobacillus Combination No.4 (Probiotic) 3 Billion Cell Capsule 1 EACH PO TID, #30 CAP May substitute any appropriate probiotic based on availability or cost. Take 3 times daily with meals. Prov: CHINTAN VÁSQUEZ MD 12/07/22 Vancomycin HCl (Vancomycin HCl) 125 Mg Capsule 125 MG PO QID, #40 CAP Prov: CHINTAN VÁSQUEZ MD 12/07/22 Copy Copies To 1: [facility]/CHINTAN SOLIS MD Dec 07, 2022 04:01
[2022-12-07 04:16] LABS: BASOPHILS # (AUTO) 0.1 10^3/uL (0.0-0.1); BASOPHILS % (AUTO) 0 % (0-10); EOSINOPHILS # (AUTO) 0.1 10^3/uL (0.0-0.3); EOSINOPHILS % (AUTO) 1 % (0-10); HEMATOCRIT 41 % (35-52); HEMOGLOBIN 14.1 g/dL (11.5-16.0); LYMPHOCYTES # (AUTO) 2.4 10^3/uL (1.0-4.0); LYMPHOCYTES % (AUTO) 13 % (12-44); MEAN CORPUSCULAR HEMOGLOBIN 31 pg (25-34); MEAN CORPUSCULAR HGB CONC 34 g/dL (32-36); MEAN CORPUSCULAR VOLUME 91 fL (80-99); MEAN PLATELET VOLUME 11.3 fL (9.0-12.2); MONOCYTES # (AUTO) 1.3 10^3/uL (0.0-1.0); MONOCYTES % (AUTO) 7 % (0-12); NEUTROPHILS # (AUTO) 14.9 10^3/uL (1.8-7.8); NEUTROPHILS % (AUTO) 79 % (42-75); PLATELET COUNT 235 10^3/uL (130-400)
[2022-12-07 04:30] LABS: POTASSIUM 4.1 MMOL/L (3.6-5.0)
[2022-12-07 04:32] LABS: CALCIUM 9.1 MG/DL (8.5-10.1)
[2022-12-07 04:33] LABS: TOTAL PROTEIN 7.5 GM/DL (6.4-8.2)
[2022-12-07 04:37] LABS: CREATININE SERUM 0.9 MG/DL (0.60-1.30)
[2022-12-07] MEDS ORDERED: morphine INJ 10 MG/ML 1ML (SYR OR VIAL) IVP STA (04:49)
[2022-12-07 05:20] LABS: EOSINOPHILS % (MANUAL) 1 %; LYMPHOCYTES % (MANUAL) 13 %; MONOCYTES % (MANUAL) 6 %; NEUTROPHILS % (MANUAL) 80 %
[2022-12-07 05:21] LABS: RBC MORPH NORMAL
[2022-12-07] MEDS ORDERED: HOLD METFORMIN - RECEIVED CONTRAST 20 ML VIAL IV SCH (05:45)
[2022-12-07] MEDS ORDERED: IOHEXOL 350 MG/ML 100 ML (OMNIPAQUE 350) VIAL IV ONE (05:45)
[2022-12-07] MEDS ORDERED: NS 100 ML (IVPB) BAG IV ONE (05:45)
--- NOTE | 2022-12-07 06:02 | Diagnostic Imaging Report ---
CT ABDOMEN/PELVIS W TECHNIQUE: Multiple contiguous axial images were obtained through the abdomen and pelvis after administration of intravenous contrast. All CT scans use one or more of the following dose optimizing techniques: automated exposure control, MA and/or KvP adjustment based on patient size and exam type or iterative reconstruction. INDICATION: Left flank pain COMPARISON: None available. FINDINGS: Lower chest: The lung bases are clear. No pericardial or pleural effusion. Peritoneum: No free intraperitoneal air or fluid. Liver and biliary system: Liver is enlarged measuring 20 cm and has diffuse hypoattenuation indicative of steatosis. No focal hepatic lesion is appreciated. Cholecystectomy. Spleen and Pancreas: Spleen is normal. The pancreas enhances normally without mass lesion or peripancreatic inflammatory changes. Adrenals: Normal. tract: The kidneys enhance normally without suspicious mass or obstruction. Urinary bladder is distended without wall thickening. Hysterectomy. No adnexal mass. GI tract: Stomach is decompressed. No bowel obstruction. No pericolonic inflammatory changes. Normal appendix. Vasculature and Lymph nodes: Normal caliber aorta. No abdominal or pelvic lymphadenopathy. Musculoskeletal: No concerning osseous lesion. IMPRESSION: 1. No acute intrapelvic process. 2. Hepatomegaly with diffuse steatosis. Dictated by: Dictated on workstation # [id number]
[2022-12-07] MEDS ORDERED: KETOROLAC 30 MG/ML VIAL IVP ONE (06:45)
[2022-12-07] MEDS ORDERED: LACT1CAP74 PO (06:53)
[2022-12-07] MEDS ORDERED: NITR-65 PO (06:53)
[2022-12-07] MEDS ORDERED: VANC125C5 PO (06:53)
[2022-12-07 06:59] VITALS: BP 107/67
== END 2022-12-07 07:07 | disposition home or self-care (01) ==
LOC: EDUNIT# 02:33 → ER 02:36
DX: N39.0 Urinary tract infection, site not specified (principal); R19.7 Diarrhea, unspecified; Z88.0 Allergy status to penicillin; Z88.5 Allergy status to narcotic agent
CPT/HCPCS: 36415; 74177; 80053; 81000; 83690; 85007; 85027; 86141; 87077; 87088; 87186